=== PATIENT | female | born 1965 | race Caucasian/White ===

== ENCOUNTER 2024-04-22 16:25 | Emergency (ER) | payer OTHER, SELFPAY ==
[2024-04-22 16:35] VITALS: BP 128/75; PULSE 61; TEMP 36.9; O2SAT 98; BMI 24.6
--- NOTE | 2024-04-22 16:43 | CT_ITS ---
The [address] [address] Patient Name: LUCILA NÚÑEZ MRN: [id number] date: 1965 Sex: F Assigned Patient Location: ER Current Patient Location: ER Accession/Order Number: [id number] Exam Date: 04/22/2024 17:13 Report Date: 04/22/2024 17:57 At the request of: SUSAN MORALES Procedure: CT abdomen pelvis wo con CT ABDOMEN/PELVIS WITHOUT IV CONTRAST. INDICATION: Flank pain COMPARISON: There are no other studies available for comparison. TECHNIQUE: Contiguous axial images were obtained from the lung bases to the pelvic floor without intravenous or oral contrast. Coronal and sagittal reformations are provided. FINDINGS: LOWER LUNGS: Clear. LIVER/BILIARY TREE: There is a 1 cm low-density lesion in the right hepatic lobe likely a cyst.. No intrahepatic ductal dilatation. GALLBLADDER: No significant gallbladder wall thickening. Cholelithiasis. CBD: Normal CBD. SPLEEN: Normal in size. PANCREAS: No appreciable peripancreatic fluid. No pancreatic ductal dilatation. No discrete lesion. ADRENALS: Normal. KIDNEYS: No hydronephrosis. No radiopaque calculus. STOMACH AND BOWEL: Stomach is unremarkable. No dilated bowel loops. No bowel wall thickening. Postoperative changes of the right colon. PERITONEAL CAVITY: No fluid. No fat stranding. ABDOMINAL WALL: No subcutaneous stranding. No subcutaneous fluid collection. LYMPH NODES: No mesenteric or retroperitoneal lymphadenopathy by CT criteria. ABDOMINAL AORTA: No aneurysm. PELVIS: No acute abnormality. There is a right adnexal 5.8 x 5.2 cm low-density cystic lesion. MUSCULOSKELETAL: No acute osseous abnormality. CT/CT abdomen pelvis wo con IMPRESSION: 1. No acute abnormality in the abdomen or pelvis. 2. Cholelithiasis without evidence of acute cholecystitis. 3. Right adnexal 5.8 cm cystic lesion. Recommend pelvic ultrasound correlation. Electronically authenticated by: YOHAN RODRIGUEZ Date: 04/22/2024 17:57
[2024-04-22 16:58] LABS: Bilirubin Urine NEGATIVE (NEGATIVE); Blood Urine NEGATIVE (NEGATIVE); Clarity Urine CLEAR (CLEAR); Color Urine LT. YELLOW (YELLOW); Glucose Urine UA NEGATIVE (NEGATIVE); Ketones Urine NEGATIVE (NEGATIVE); Leukocyte Esterase Urine SMALL (NEGATIVE); Nitrite Urine NEGATIVE (NEGATIVE); Protein Urine NEGATIVE (NEG/TRACE); Specific Gravity Urine <=1.005 (1.005-1.025); Urobilinogen Urine 0.2 EU/dL (0.2-1.0)
[2024-04-22 17:00] LABS: Urine Microscopic Indicated YES
[2024-04-22 17:10] LABS: Bacteria Urine NONE SEEN #/HPF (NONE SEEN); Cast Seen? NONE SEEN #/LPF (NONE SEEN); Crystals Seen? None Seen #/HPF (None Seen); Mucus Urine NONE SEEN (NONE SEEN); RBC Urine NONE SEEN #/HPF (0-2); Squamous Epithelial Cell Urine RARE #/LPF (NONE/RARE); Transitional Epi Cells Urine RARE #/LPF (NONE SEEN); WBC Urine 0-2 #/HPF (NONE SEEN)
[2024-04-22 17:41] LABS: Basophils Absolute Auto 0.1 10^3/uL (0.0-0.1); Basophils Percent Auto 0.8 % (0.2-2.0); Eosinophils Absolute Auto 0.1 10^3/uL (0.0-0.7); Eosinophils Percent Auto 1.7 % (0.9-7.0); Hematocrit 37.1 % (36.0-48.0); Hemoglobin 12.1 g/dL (12.0-16.0); Immature Granulocytes Abs Auto 0.01 10^3/uL (0.00-0.03); Immature Granulocytes Pct Auto 0.2 % (0.0-0.5); Lymphocytes Absolute Auto 1.8 10^3/uL (1.2-3.8); Lymphocytes Percent Auto 29.9 % (20.5-60.0); Mean Corpuscular HGB Conc 32.6 g/dL (29.9-35.2); Mean Corpuscular Hemoglobin 27.6 pg (26.7-34.0); Mean Corpuscular Volume 84.7 fL (81.0-99.0); Mean Platelet Volume 9.2 fL (9.5-13.5); Monocytes Absolute Auto 0.5 10^3/uL (0.3-0.8); Monocytes Percent Auto 8.3 % (1.7-12.0); Neutrophils Absolute Auto 3.5 10^3/uL (1.4-6.5); Neutrophils Percent Auto 59.1 % (43.0-75.0); Platelet Count 331 10^3/uL (150-450); Red Blood Count 4.38 10^6/uL (4.20-5.40); Red Cell Distribution Width 12.9 % (11.0-15.0); White Blood Count 5.9 10^3/uL (4.0-11.0)
--- NOTE | 2024-04-22 17:44 | ED.BACK1 ---
HPI HPI - Back Pain/Injury General Chief Complaint: Back Pain/Injury Stated Complaint: BACK PAIN Time Seen by Provider: 04/22/24 16:42 Source: patient Mode of arrival: walk-in History of Present Illness HPI Narrative: Patient coming to the ER with a right-sided back pain radiating to her groin area that started almost 2 days ago, no history of kidney stone, no nausea no vomiting no changes in bowel movement, pain is related to movement and it not responding to ibuprofen Related Data Previous Rx's ?Medication ?Instructions ?Recorded cyclobenzaprine 5 mg tablet 5 mg PO BID PRN muscle spasm #10 04/22/24 tabs diclofenac sodium 50 mg 50 mg PO Q12H PRN pain #10 tabs 04/22/24 tablet,delayed release Allergies Allergy/AdvReac Type Severity Reaction Status Date / Time No Known Drug Allergies Allergy Verified 04/22/24 16:39 Opioid HPI Opioid Management Most Recent Opioid Data: Last Pain Scale 6 04/22/24 18:02 Last MAR Pain Assessment 04/22/24 18:02 Review of Systems ROS Status of ROS 10 or more systems reviewed and unremarkable except as noted in history and below Exam Narrative Exam Narrative: Nurses notes and vital signs reviewed and patient is not hypoxic. General: Well-appearing and in no apparent distress. Skin: Warm, dry, no pallor noted. No rash. Head: Normocephalic, atraumatic. Neck: Supple, non-tender. Eye: Pupils are equal, round and EOMI. No scleral icterus. Ears, Nose, Mouth, and Throat: TM are clear, no nasal mucosal hypertrophy. Oral mucosa is moist, no posterior oropharynx erythema, uvula is mid-line Cardiovascular: Regular Rate and Rhythm without murmur, gallop or rub. Respiratory: No accessory muscle use or respiratory distress. Lungs are clear to auscultation, no wheezing, rales or rhonchi Chest Wall: no tenderness Back: No midline thoracic or lumbar vertebral tenderness. Right CVA tenderness noted no intervertebral line tenderness and there is no right lower quadrant tenderness Musculoskeletal: normal ROM, no calf or popliteal tenderness, no lower extremity edema/swelling GI: Abdomen is soft, non-distended. Normal bowel sounds. No masses appreciated. No tenderness to palpation. No rebound, guarding, or rigidity noted. Neurological: A&O x4. No cranial nerve dysfunction observed. No truncal ataxia. Moves all extremities. Sensation intact. Psychiatric: Cooperative and interactive. Normal mood and affect. Constitutional Vital Signs, click to edit/add: Last Vital Signs Temp 98.4 F 04/22/24 16:35 Pulse 61 04/22/24 16:35 Resp 16 04/22/24 16:35 BP 128/75 04/22/24 16:35 Pulse Ox 98 04/22/24 16:35 O2 Del Method Room Air 04/22/24 16:35 Course Vital Signs Vital signs: Vital Signs Temperature 98.4 F 04/22/24 16:35 Pulse Rate 61 04/22/24 16:35 Respiratory Rate 16 04/22/24 16:35 Blood Pressure 128/75 04/22/24 16:35 Pulse Oximetry 98 04/22/24 16:35 Oxygen Delivery Method Room Air 04/22/24 16:35 Temperature 98.4 F 04/22/24 16:35 Pulse Rate 61 04/22/24 16:35 Respiratory Rate 16 04/22/24 16:35 Blood Pressure 128/75 04/22/24 16:35 Pulse Oximetry 98 04/22/24 16:35 Oxygen Delivery Method Room Air 04/22/24 16:35 MDM - Back Pain/Injury MDM Narrative Medical decision making narrative: The patient' CBC chemistry showed no acute pathology Urinalysis showed no acute pathology as well The patient CT abdomen pelvis showed no acute pathology except for a cyst of the right ovary that is 5.8 cm. The patient was not having pain in the right lower quadrant more pain was in the upper back I offered the patient an ultrasound to be done in the ER but I told her that it is going to have to wait for the laser technician to come and do the ultrasound but she mentioned that she will follow-up with her [facility] doctor as outpatient as she have an appointment with them at the end of the month The patient understand that the pain is not drained right now I did explain to her that ovarian torsion possibility that could happen in the future although she does not have any pain there The patient pain is localized to the right upper back and not in the right lower quadrant The patient is to follow up with primary care physician in next 2-3 days or to return to the emergency department should any of the signs or symptoms worsen or new symptoms develop. The patient agrees with the following Diagnosis and Treatment plan and the patient will be discharged home. Lab Data Labs: Lab Results 04/22/24 04/22/24 Range/Units 16:40 17:34 WBC 5.9 (4.0-11.0) 10^3/uL RBC 4.38 (4.20-5.40) 10^6/uL Hgb 12.1 (12.0-16.0) g/dL Hct 37.1 (36.0-48.0) % MCV 84.7 (81.0-99.0) fL MCH 27.6 (26.7-34.0) pg MCHC 32.6 (29.9-35.2) g/dL RDW 12.9 (11.0-15.0) % Plt Count 331 (150-450) 10^3/uL MPV 9.2 L (9.5-13.5) fL Neut % (Auto) 59.1 (43.0-75.0) % Lymph % (Auto) 29.9 (20.5-60.0) % Walker % (Auto) 8.3 (1.7-12.0) % Eos % (Auto) 1.7 (0.9-7.0) % Baso % (Auto) 0.8 (0.2-2.0) % Neut # (Auto) 3.5 (1.4-6.5) 10^3/uL Lymph # (Auto) 1.8 (1.2-3.8) 10^3/uL Walker # (Auto) 0.5 (0.3-0.8) 10^3/uL Eos # (Auto) 0.1 (0.0-0.7) 10^3/uL Baso # (Auto) 0.1 (0.0-0.1) 10^3/uL Abs Immat Gran (auto) 0.01 (0.00-0.03) 10^3/uL Imm/Tot Granulo (auto) 0.2 (0.0-0.5) % Sodium 138 (136-145) mmol/L Potassium 3.9 (3.5-5.1) mmol/L Chloride 102 (98-107) mmol/L Carbon Dioxide 29.2 (21.0-32.0) mmol/L Anion Gap 10.7 BUN 8.0 (7.0-18.0) mg/dL Creatinine 0.73 (0.55-1.02) mg/dL Est GFR ( Amer) >60 (>=60) Est GFR (Non-Af Amer) >60 (>=60) BUN/Creatinine Ratio 11.0 Glucose 92 (74-106) mg/dL Lactate 0.8 (0.4-2.0) mmol/L Calcium 9.2 (8.5-10.1) mg/dL Total Bilirubin 0.3 (0.2-1.0) mg/dL AST 27 (15-37) U/L ALT 27 (14-59) U/L Alkaline Phosphatase 67 (46-116) U/L Total Protein 7.5 (6.4-8.2) g/dL Albumin 4.0 (3.4-5.0) g/dL Globulin 3.5 g/dL Albumin/Globulin Ratio 1.1 Urine Color Lt. yellow (YELLOW) Urine Clarity Clear (CLEAR) Urine pH 6.0 (5.0-9.0) Ur Specific [place] <=1.005 A (1.005-1.025) Urine Protein Negative (NEG/TRACE) mg/dL Urine Glucose (UA) Negative (NEGATIVE) mg/dL Urine Ketones Negative (NEGATIVE) mg/dL Urine Occult Blood Negative (NEGATIVE) Urine Nitrite Negative (NEGATIVE) Urine Bilirubin Negative (NEGATIVE) Urine Urobilinogen 0.2 (0.2-1.0) EU/dL Ur Leukocyte Esterase Small A (NEGATIVE) Urine RBC None seen (0-2) #/HPF Urine WBC 0-2 A (NONE SEEN) #/HPF Ur Squamous Epith Cells Rare (NONE/RARE) #/LPF Ur Transition Epith Cell Rare A (NONE SEEN) #/LPF Urine Crystals None seen (None Seen) #/HPF Urine Bacteria None seen (NONE SEEN) #/HPF Urine Casts None seen (NONE SEEN) #/LPF Urine Mucus None seen (NONE SEEN) Discharge Plan Discharge Stand Alone Forms: Portal Instructions Chief Complaint: Back Pain/Injury Clinical Impression: Strain of lumbar region, Ovarian cyst Patient Disposition: Home, Self-Care Time of Disposition Decision: 18:50 Condition: Good Prescriptions / Home Meds: New cyclobenzaprine 5 mg tablet 5 mg PO BID PRN (Reason: muscle spasm) Qty: 10 0RF diclofenac sodium 50 mg tablet,delayed release (DR/EC) 50 mg PO Q12H PRN (Reason: pain) Qty: 10 0RF Print Language: Divehi Instructions: Ovarian Cyst (ED), Back Pain (ED) Referrals: Harvey Zimmer DO [Physician] - As soon as possible PAULETTE CHAIDEZ [Primary Care Provider] - 1 week
[2024-04-22] MEDS: ORPHENADRINE 60 MG/ 2 ML VIAL 30 MG IM (18:01)
[2024-04-22] MEDS: KETOROLAC TROMETHAMINE 30 MG/ML VIAL IM (18:02)
[2024-04-22 18:17] LABS: Alanine Aminotransferase 27 U/L (14-59); Albumin Globulin Ratio 1.1; Alkaline Phosphatase 67 U/L (46-116); Anion Gap 10.7; Aspartate Amino Transferase 27 U/L (15-37); Bilirubin Total 0.3 mg/dL (0.2-1.0); Calcium 9.2 mg/dL (8.5-10.1); Carbon Dioxide 29.2 mmol/L (21.0-32.0); Chloride 102 mmol/L (98-107); Estimated GFR (African America >60 (>=60); Estimated GFR (Non-African Ame >60 (>=60); Globulin 3.5 g/dL; Glucose 92 mg/dL (74-106); Potassium 3.9 mmol/L (3.5-5.1); Sodium 138 mmol/L (136-145); Total Protein 7.5 g/dL (6.4-8.2)
[2024-04-22 18:20] LABS: Lactate/Lactic Acid 0.8 mmol/L (0.4-2.0)
[2024-04-22 19:05] VITALS: BP 122/70; PULSE 65; TEMP 36.7; O2SAT 100
== END 2024-04-22 19:06 | disposition home or self-care (01) ==
PROVIDERS: Physician Assistant; Emergency Provider Emergency Medicine; PCP Nurse Practitioner
DX: S39.012A Strain of muscle, fascia and tendon of lower back, initial encounter (principal); N83.201 Unspecified ovarian cyst, right side
CPT/HCPCS: 36415; 74176; 80053; 81001; 83605; 85025; 96372; 99285

== ENCOUNTER 2024-04-30 08:21 | Outpatient (OUT) | payer OTHER, SELFPAY ==
--- NOTE | 2024-04-30 08:24 | US_ITS ---
[address] [address] Patient Name: LUCILA NÚÑEZ MRN: [id number] date: 1965 Sex: F Assigned Patient Location: [facility] Current Patient Location: [facility] Accession/Order Number: [id number] Exam Date: 04/30/2024 08:25 Report Date: 04/30/2024 09:37 At the request of: MARYAN RUBIO Procedure: US pelvis w/ transvaginal EXAMINATION: US pelvis w/ transvaginal HISTORY: RIGHT OVARIAN CYST follow-up COMPARISON: CT abdomen pelvis 04/22/2024 TECHNIQUE: Transabdominal and/or transvaginal sonographic examination was performed as indicated by examination type. FINDINGS: UTERUS: Hysterectomy. RIGHT OVARY: Contains an anechoic simple appearing 5.3 cm cyst. Duplex Doppler demonstrates normal waveform and flow; resistive index 0.7. Ovary size: 6.7 x 5.4 x 5.5 cm LEFT OVARY: Not seen. CUL-DE-SAC: Unremarkable. No significant free fluid. BLADDER: Unremarkable. OTHER: None. US/US pelvis w/ transvaginal IMPRESSION: 1. Within the right ovary is a benign-appearing 5.3 cm cyst which corresponds to prior CT findings. Consider follow-up ultrasound evaluation in 6 weeks to document regression. Electronically authenticated by: JOSEPH BAILEY Date: 04/30/2024 09:37
--- OUTSIDE RECORDS SUMMARY | 2024-04-30 08:44 | XMS_ITS ---
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 [address] [address] Josie Allred MG MAMM SCREEN 3D АЛЕКСАНДР CADon 01-28-2022 MG MAMM SCREEN 3D АЛЕКСАНДР CAD Patient: ITALIA NÚÑEZ Exam Date: 01/28/2022 : 1965 Gender:F Ordering : DR CHELSEY DILL Admission #: [id number] Family : Order #: [id number] CLICK HERE TO VIEW EXAM RADIOLOGY REPORT PROCEDURE: MAMMOGRAM SCREENING 3D BILATERAL CAD COMPARISON: MG MAMM SCREEN АЛЕКСНАДР W CAD, 12/02/2020. MG MAMM SCREEN АЛЕКСАНДР W CAD, 11/25/2019. INDICATIONS: Screening mammography Calculator Name NCI Breast Cancer Risk Assessment Tool 5 Year Breast Cancer Risk 1.30% Lifetime Breast Cancer Risk 8.50% Personal Breast Cancer No Personal Ovarian Cancer No Treatments Bowel resection Family Cancers Father with mult.myeloma cancer at age 68; Mother with colon cancer at age 79. LOCATION: [facility] BREAST COMPOSITION: Heterogeneously dense,which may obscure small masses. FINDINGS: DIAGNOSTIC CATEGORY 1--NEGATIVE. NO CHANGE FROM COMPARISON ASSESSMENT. Scattered benign-appearing calcifications are present. Scattered benign-appearing lymph nodes are present. RIGHT BREAST: No significant suspicious finding. Stable micro clip marker upper half LEFT BREAST: No significant suspicious finding. Round mole marker upper outer quadrant RECOMMENDATIONS: ROUTINE MAMMOGRAM AND CLINICAL EVALUATION IN 12 MONTHS. PLEASE NOTE: A NORMAL MAMMOGRAM DOES NOT EXCLUDE THE POSSIBILITY OF BREAST CANCER. A CLINICALLY SUSPICIOUS PALPABLE LUMP SHOULD BE BIOPSIED. Dictated by: Golden Randolph MD on 01/28/2022 at 08:06 Approved by: Golden Randolph MD on 01/28/2022 at 08:07 Normal [facility] PROF 14(COMP METB)on 022 Albumin [Mass/Vol] 3.9 g/dL Normal 3.5-5.0 [facility] Comment on above: Performed By: #### L IPID, CMP #### [facility] [address] [place] [address] Dr. Josie Allred Albumin/Globulin [Mass ratio] 1.1 {ratio} Normal [facility] Comment on above: Performed By: #### L IPID, CMP #### [facility] [address] [place] [address] Dr. Josie Allred ALP [Catalytic activity/Vol] 56 U/L Normal 38-126 [facility] Comment on above: Performed By: #### L IPID, CMP #### [facility] [address] [place] [address] Dr. Josie Allred ALT [Catalytic activity/Vol] 25 U/L Normal 9-52 [facility] Comment on above: Performed By: #### L IPID, CMP #### [facility] [address] [place] [address] Dr. Josie Allred Anion gap [Moles/Vol] 12.2 mmol/L Normal [facility] Comment on above: Performed By: #### L IPID, CMP #### [facility] [address] [place] [address] Dr. Josie Allred AST [Catalytic activity/Vol] 21 U/L Normal 14-36 [facility] Comment on above: Performed By: #### L IPID, CMP #### [facility] [address] [place] [address] Dr. Josie Allred Bilirubin [Mass/Vol] 0.3 mg/dL Normal 0.2-1.3 [facility] Comment on above: Performed By: #### L IPID, CMP #### [facility] [address] [place] [address] Dr. Josie Allred Calcium [Mass/Vol] 8.8 mg/dL Normal 8.4-10.2 [facility] Comment on above: Performed By: #### L IPID, CMP #### [facility] [address] [place] [address] Dr. Josie Allred Chloride [Moles/Vol] 104 mmol/L Normal 98-107 [facility] Comment on above: Performed By: #### L IPID, CMP #### [facility] [address] [place] [address] Dr. Josie Allred CO2 [Moles/Vol] 27.1 mmol/L Normal 22.0-30.0 [facility] Comment on above: Performed By: #### L IPID, CMP #### [facility] [address] [place] [address] Dr. Josie Allred Creatinine [Mass/Vol] 0.81 mg/dL Normal 0.52-1.04 [facility] Comment on above: Performed By: #### L IPID, CMP #### [facility] [address] [place] [address] Dr. Josie Allred EGFR-AF HAITIAN >60 Normal >=60 [facility] Comment on above: Performed By: #### L IPID, CMP #### [facility] [address] [address] [address] Josie Allred EGFR-NON AF HAITIAN >60 Normal >=60 [facility] Comment on above: Performed By: #### L IPID, CMP #### [facility] [address] [place] [address] Dr. Josie Allred Globulin (S) [Mass/Vol] 3.5 g/dL Normal [facility] Comment on above: Performed By: #### L IPID, CMP #### [facility] [address] [place] [address] Dr. Josie Allred Glucose [Mass/Vol] 100 mg/dL Normal 74-106 [facility] Comment on above: Performed By: #### L IPID, CMP #### [facility] [address] [place] [address] Dr. Josie Allred Potassium [Moles/Vol] 4.3 mmol/L Normal 3.4-5.0 [facility] Comment on above: Performed By: #### L IPID, CMP #### [facility] [address] [place] [address] Dr. Josie Allred Protein [Mass/Vol] 7.4 g/dL Normal 6.1-8.2 [facility] Comment on above: Performed By: #### L IPID, CMP #### [facility] [address] [place] [address] Dr. Josie Allred Sodium [Moles/Vol] 139 mmol/L Normal 137-145 [facility] Comment on above: Performed By: #### L IPID, CMP #### [facility] [address] [place] [address] Dr. Josie Allred Urea nitrogen [Mass/Vol] 17.0 mg/dL Normal 7.0-17.0 [facility] Comment on above: Performed By: #### L IPID, CMP #### [facility] [address] [address] [address] Josie Allred Urea nitrogen/Creatinin e [Mass ratio] 21.0 mg/mg Normal [facility] Comment on above: Performed By: #### L IPID, CMP #### [facility] [address] [address] [address] Josie Allred POINT OF CARE GLUCOSEon 11-27 Glucose [Mass/Vol] 156 mg/dL Critically high 74-106 [facility] Comment on above: Performed By: #### P OCGLUC #### [facility] [address] [address] [address] Josie Allred Social History Date Type Detail Facility Start: 1965 Sex Assigned At Female F [facility] Tobacco smoking status NHIS Unknown if ever smoked [facility] Work Phone: Sex Assigned At Sex Assigned At Bir th [facility] Other Vital Signs Date Time Vital Sign Value Performing Clinician Facility 09-10-2022 10:55-0400 Body height 167.64 cm Indigo Mckeon Other [facility] Other 09-10-2022 10:55-0400 Body mass index (BMI) [Ratio] 24.37 kg/m2 Indigo Mcke[facility] Other [facility] Other 09-10-2022 10:55-0400 Body temperature 97.5 [degF] Indigo Mcke[facility] Other [facility] Other 09-10-2022 10:55-0400 Body weight 68.49 kg Indigo Mckeon Other [facility] Other 09-10-2022 10:55-0400 Diastolic blood pressure 61 mm[Hg] Indigo Mcke[facility] Other [facility] Other 09-10-2022 10:55-0400 Respiratory rate 18 /min Indigo Mckeon Other [facility] Other 09-10-2022 10:55-0400 SaO2% (BldA) [Mass fraction] 99 % Indigo Mckeon Other [facility] Other 09-10-2022 10:55-0400 Systolic blood pressure 117 mm[Hg] Indigo Mckeon Other [facility] Other Evaluation note 09-10-2022 Note Date & Type Note Facility 09-10-2022 Evaluation note Encounter Date Diagnosis Assessment Notes Aug, Dysuria (ICD-10 - R30.0) Discussed diagnosis and dipstick findings with patient. Advised patient culture was sent today and we will call with her results in 2-5 days. Will hold off on treatment at this time. At time of culture results, treatment plan may change. Patient instructed to push fluids. Patient symptoms should improve in the next 48 hours, if symptoms persist follow up with PCP or UC. Immediate eval by ER if back or flank pain, fever, chills, N/V, or any other concerning symptoms arise. Patient verbalizes understanding and is agreeable to treatment plan [facility] Other Evaluation note Note Date & Type Note Facility Evaluation note No assessment information availa [facility] Work Phone: Summary Purpose Family History No Family History Records FoundNo Family History Records FoundNo Family History Records FoundNo Family History Records FoundNo Family History Records FoundNo Family History Records Found Advance Directives No Advanced Directives Records Found Advance Directive Response Recorded Date/ Time Advance Directives No April 12 7:30pm Chief Complaint and Reason for Visit Chief Complaint Dysuria Additional Source Comments INFORMATION SOURCE (unrecogn ized section and content) DATE CREATED AUTHOR 02/03/2022 [facility] DATE CREATED AUTHOR AUTHOR'S KAREN JARA 09/18/2022 [facility] DATE CREATED AUTHOR AUTHOR'S ORGANIZ ATION 07/04/2023 [facility] DATE CREATED AUTHOR AUTHOR'S ORGANIZ ATION 04/10/2024 [facility] DATE CREATED AUTHOR AUTHOR'S ORGANIZ ATION 04/11/2024 [facility] DATE CREATED AUTHOR AUTHOR'S ORGANIZ ATION 04/29/2024 [facility] EPIC Care Teams (unrecognized sec tion and content) Team Status: Inactive Member Role Status Dates Josef Portillo , DO Primary Care Provider Active LYDIA Fish Attending Provider Active Team Status: Active Member Role Status Dates Josef Portillo , DO Primary Care Provider Active Team Status: Inactive Member Role Status Dates Josef Portillo , DO Primary Care Provider Active Indigo Mckeon APRN Attending Provider Active Goals (unrecognized section and content) Goals may be documented in a n alternate sectionNo InformationGoals may be documented in an alternate section REASON FOR VISIT (unrecogniz ed section and content) DYSURIA FOR RECORDS PERTAINING TO PATIENTS WHO ARE OR HAVE BEEN ENROLLED IN A CHEMICAL DEPENDENCY/SUBSTANCEABUSE PROGRAM, SOME INFORMATION MAY BE OMITTED. This clinical summary was aggregated from multiple sources. Caution should be exercised in using it in the provision of clinical care. This summary normalizes information from multiple sources, and as a consequence, information in this document may materially change the coding, format and clinical context of patient data. In addition, data may be omitted in some cases. CLINICAL DECISIONS SHOULD BE BASED ON THE PRIMARY CLINICAL RECORDS. [facility]. provides no warranty or guarantee of the accuracy or completeness of information in this document.
== END 2024-04-30 08:22 | disposition home or self-care (01) ==
LOC: NOMS 08:22
PROVIDERS: PCP Nurse Practitioner; Visit Provider Obstetrics & Gynecology
DX: N83.201 Unspecified ovarian cyst, right side (principal)
CPT/HCPCS: 76830; 76856

== ENCOUNTER 2024-07-01 21:20 | Outpatient (REF) | payer OTHER, SELFPAY ==
--- OUTSIDE RECORDS SUMMARY | 2024-07-01 21:28 | XMS_ITS | CCD ---
Author Organization [facility] Care Team Providers Care Protective Signal Installer Helper Name Role Phone PAULETTE MARCELINO Admitting Unavailable PAULETTE MARCELINO Attending Unavailable PAULETTE MARCELINO Consulting Unavailable FUENTES, DR BARBOSA Admitting Unavailable FUENTES, DR BARBOSA Attending Unavailable [place], DR GOLDEN Connell Consulting Unavailable FUENTES, DR BARBOSA Consulting Unavailable DO Josef Portillo Primary Care Provider LYDIA Marcelino Attending Provider Indigo Mckeon Unavailable DO Josef Portillo Primary Care Provider YUE Mckeon Attending Provider [phone] Josef Portillo Primary Care Unavailable Indigo Mckeon Attending Unavailable Indigo Mckeon Admitting Unavailable Paulette Marcelino Admitting Unavailable Josef Portillo Primary Care Unavailable Paulette Marcelino Attending Unavailable PAULETTE MARCELINO Attending Unavailable PAULETTE MARCELINO Referring Unavailable PAULETTE MARCELINO Primary Care Unavailable PAULETTE MARCELINO Referring Unavailable ALEXIS MARCELINOERIE Joanie Primary Care Unavailable MARYAN RUBIO Attending Unavailable MARYAN RUBIO Referring Unavailable DIETER ROE Attending Unavailable MARYAN RUBIO Attending Unavailable Problems Active Problems Problem Classification Problem Date [...] [Other iron deficiency anemias] Onset: 11-01-2017 Episodic Results Test Name Value Interpretation Reference Range Facility BI MAMMOGRAM SCREENING TOMOS YNTHESIS BILATERALon 05-29-2024 BI MAMMOGRAM SCREENING TOMOSYNTHESIS BILATERAL This is a summary report. The complete report is available in the patient's medical record. If you cannot access the medical record, please contact the sending organization for a detailed fax or copy. EXAMINATION: BI MAMMOGRAM SCREENING TOMOSYNTHESIS BILATERAL CLINICAL HISTORY:screening mammogram COMPARISON: February 17, 2023. RESULT: Density: Heterogeneously dense [3] There is no suspicious mass, asymmetry, architectural distortion, or calcification. Right upper outer quadrant biopsy clip. Overall appearance stable. IMPRESSION: BIRADS 2 - Benign Follow-up: Routine Screening Mamm Board Certified Radiologists. Accredited by the ACR and FDA. MAMMOGRAPHY IS VERY IMPORTANT TO YOUR HEALTH. THE [place] [employer] GUIDELINES RECOMMEND THAT WOMEN 40 YEARS OF AGE AND OLDER SHOULD HAVE A MAMMOGRAM EVERY YEAR. A REMINDER LETTER WILL BE SENT AT THE APPROPRIATE TIME. THIS FACILITY UTILIZES A REMINDER SYSTEM TO ENSURE ALL PATIENTS RECEIVE REMINDER NOTIFICATIONS AT THE APPROPRIATE TIME BASED ON THE RECOMMENDATIONS OF THIS EXAM. THIS INCLUDES REMINDERS FOR ROUTINE SCREENING MAMMOGRAMS, DIAGNOSTIC MAMMOGRAMS IN WHICH THE PATIENT IS ASKED TO RETURN FOR ADDITIONAL VIEWS, OR OTHER BREAST IMAGING INTERVENTIONS WHEN APPROPRIATE. THE PATIENT WILL BE PLACED IN THE APPROPRIATE REMINDER SYSTEM INCLUDING A REMINDER AT THE APPROPRIATE TIME FOR ANY PENDING ADDITIONAL VIEWS. TRANSCRIBED BY: ELECTRONICALLY SIGNED BY: Steve Fong MD Normal Not Available CBC AND AUTO DIFFon 04-09-20 24 ABSOLUTE BASOPHIL 0.0 X10E9/L Normal 0.0-0.2 [facility] Comment on above: Performed By: #### C BCA, CMP, FEPR, 13783-8, 3016-3, 2276-4, 2132-07 #### [facility] ([id number]) [address], [address] [place] [address] ABSOLUTE NEUTROPHIL 1.8 X10E9/L Normal 1.5-6.6 [facility] Comment on above: Performed By: #### C BCA, CMP, FEPR, 44550-3, 3016-3, 2275-4, 2132-07 #### [facility] ([id number]) [address] [place] [address] Basophils/100 WBC (Bld) 1.4 % Normal [facility] Comment on above: Performed By: #### C BCA, CMP, FEPR, 91065-9, 3016-3, 2276-4, 2132-07 #### [facility] ([id number]) [address] [facility] [address] [place] [address] Eosinophils (Bld) [#/Vol] 0.1 10*3/uL Normal 0.0-0.4 [facility] Comment on above: Performed By: #### C BCA, CMP, FEPR, 54314-3, 3016-3, 2276-4, 2132-07 #### [facility] ([id number]) [address], [address] [place] [address] Eosinophils/100 WBC (Bld) 4.2 % Normal [facility] Comment on above: Performed By: #### C BCA, CMP, FEPR, 71018-2, 3016-3, 2276-4, 2132-07 #### [facility] ([id number]) [address] [address] Erythrocyte distribution width (RBC) [Ratio] 13.3 % Normal 11.5-15.0 [facility] Comment on above: Performed By: #### C BCA, CMP, FEPR, 07104-4, 3016-3, 2276-4, 2132-07 #### [facility] ([id number]) [address] [address] Hematocrit (Bld) [Volume fraction] 35.8 % Normal 35-47 [facility] Comment on above: Performed By: #### C BCA, CMP, FEPR, 85372-6, 3016-3, 2275-4, 2132-07 #### [facility] ([id number]) [address] [address] Hemoglobin (Bld) [Mass/Vol] 12.0 g/dL Normal 11.7-15.5 [facility] Comment on above: Performed By: #### C BCA, CMP, FEPR, 10435-4, 3016-3, 6-4, 2132-07 #### [facility] ([id number]) [address] [address] Lymphocytes (Bld) [#/Vol] 1.3 10*3/uL Normal 1.0-3.5 [facility] Comment on above: Performed By: #### C BCA, CMP, FEPR, 68275-4, 3016-3, 2276-4, 2132-07 #### [facility] ([id number]) [address] [address] Lymphocytes/100 WBC (Bld) 35.0 % Normal [facility] Comment on above: Performed By: #### C BCA, CMP, FEPR, 65848-8, 3016-3, 2276-4, 2132-07 #### [facility] ([id number]) [address] [place] [address] MCH (RBC) [Entitic mass] 27.9 pg Normal 27-34 [facility] Comment on above: Performed By: #### C BCA, CMP, FEPR, 22424-0, 3016-3, 2276-4, 2132-07 #### [facility] ([id number]) [address] [facility] [address] [place] [address] MCHC (RBC) [Mass/Vol] 33.6 g/dL Normal 32-36 [facility] Comment on above: Performed By: #### C BCA, CMP, FEPR, 04078-1, 3016-3, 2275-4, 2132-07 #### [facility] ([id number]) [address], [facility] [address] [place] [address] MCV (RBC) [Entitic vol] 83 fL Normal 80-100 [facility] Comment on above: Performed By: #### C BCA, CMP, FEPR, 32861-1, 3016-3, 2275-4, 2132-07 #### [facility] ([id number]) [address] [facility] [address] [place] [address] Monocytes (Bld) [#/Vol] 0.3 10*3/uL Normal 0-0.9 [facility] Comment on above: Performed By: #### C BCA, CMP, FEPR, 35842-0, 3016-3, 2275-4, 2132-07 #### [facility] ([id number]) [address] [address] [place] [address] Monocytes/100 WBC (Bld) 9.7 % Normal [facility] Comment on above: Performed By: #### C BCA, CMP, FEPR, 36298-8, 3016-3, 2276-4, 2132-07 #### [facility] ([id number]) [address], [facility] [address] [place] [address] Neutrophils/100 WBC (Bld) 49.7 % Normal [facility] Comment on above: Performed By: #### C BCA, CMP, FEPR, 36458-7, 3016-3, 2276-4, 2132-07 #### [facility] ([id number]) [address] [place] [address] Platelet mean volume (Bld) [Entitic vol] 7.7 fL Normal 7-12 [facility] Comment on above: Performed By: #### C BCA, CMP, FEPR, 38457-1, 3016-3, 2276-4, 2132-07 #### [facility] ([id number]) [address], [address] [place] [address] Platelets (Bld) [#/Vol] 324 10*3/uL Normal 150-450 [facility] Comment on above: Performed By: #### C BCA, CMP, FEPR, 52345-4, 3016-3, 2276-4, 2132-07 #### [facility] ([id number]) [address], [address] [place] [address] RBC COUNT 4.31 X10E12/L Normal 3.80-5.20 [facility] Comment on above: Performed By: #### C BCA, CMP, FEPR, 35097-4, 3016-3, 2276-4, 2132-07 #### [facility] ([id number]) [address], [address] [place] [address] WBC (Bld) [#/Vol] 3.6 10*3/uL Low 4.0-11.0 [facility] Comment on above: Performed By: #### C BCA, CMP, FEPR, 57686-5, 3016-3, 2276-4, 2132-07 #### [facility] ([id number]) [address], [address] [place] [address] COMPREHENSIVE METABOLIC PANE Drew 05-14-2024 Albumin [Mass/Vol] 4.1 g/dL Normal 3.2-5.3 [facility] Comment on above: Performed By: #### C BCA, CMP, FEPR, 11729-1, 3016-3, 2276-4, 2132-07 #### [facility] ([id number]) [address], [address] [place] [address] ALP [Catalytic activity/Vol] 53 U/L Normal 39-130 [facility] Comment on above: Performed By: #### C BCA, CMP, FEPR, 42874-3, 3016-3, 2276-4, 2132-07 #### [facility] ([id number]) [address], [address] [place] [address] ALT [Catalytic activity/Vol] 19 U/L Normal 0-31 [facility] Comment on above: Performed By: #### C BCA, CMP, FEPR, 06627-1, 3016-3, 6-4, 2132-07 #### [facility] ([id number]) [address], [address] [place] [address] Anion gap [Moles/Vol] 9 mmol/L Normal 5-15 [facility] Comment on above: Performed By: #### C BCA, CMP, FEPR, 02493-6, 3016-3, 2276-4, 2132-07 #### [facility] ([id number]) [address], [address] [place] [address] AST [Catalytic activity/Vol] 22 U/L Normal 0-41 [facility] Comment on above: Performed By: #### C BCA, CMP, FEPR, 51019-2, 3016-3, 2276-4, 2132-07 #### [facility] ([id number]) [address], [address] [place] [address] Bilirubin [Mass/Vol] 0.4 mg/dL Normal 0.3-1.2 [facility] Comment on above: Performed By: #### C BCA, CMP, FEPR, 69853-8, 3016-3, 2276-4, 2132-07 #### [facility] ([id number]) [address] [place] [address] Calcium [Mass/Vol] 9.2 mg/dL Normal 8.5-10.5 [facility] Comment on above: Performed By: #### C BCA, CMP, FEPR, 18498-1, 3016-3, 2276-4, 2132-07 #### [facility] ([id number]) [address] [place] [address] Chloride [Moles/Vol] 106 mmol/L Normal 98-109 [facility] Comment on above: Performed By: #### C BCA, CMP, FEPR, 78765-6, 3016-3, 6-4, 2132-07 #### [facility] ([id number]) [address] [place] [address] CO2 [Moles/Vol] 25 mmol/L Normal 22-32 [facility] Comment on above: Performed By: #### C BCA, CMP, FEPR, 46817-2, 3016-3, 2276-4, 2132-07 #### [facility] ([id number]) [address] [place] [address] Creatinine [Mass/Vol] 0.67 mg/dL Normal 0.40-1.00 [facility] Comment on above: Result Comment: METH OD TRACEABLE TO IDMS STANDARD Performed By: #### C BCA, CMP, FEPR, 03224-3, 3016-3, 2276-4, 2132-07 #### [facility] ([id number]) [address] [place] [address] eGFR (CKD-EPI) NON-RACE DEPENDENT >90 Normal >59 [facility] Comment on above: Result Comment: Reported eGFR is based on the CKD-EPI 2020 equation that does not use a race coefficient. Performed By: #### C BCA, CMP, FEPR, 66871-4, 3016-3, 2276-4, 2132-07 #### [facility] ([id number]) [address], [address] [place] [address] Glucose [Mass/Vol] 96 mg/dL Normal 65-99 [facility] Comment on above: Performed By: #### C BCA, CMP, FEPR, 95188-5, 3016-3, 2275-4, 2132-07 #### [facility] ([id number]) [address] [place] [address] Potassium [Moles/Vol] 4.4 mmol/L Normal 3.5-5.0 [facility] Comment on above: Performed By: #### C BCA, CMP, FEPR, 03403-4, 3016-3, 2275-4, 2132-07 #### [facility] ([id number]) [address] [place] [address] Protein [Mass/Vol] 6.8 g/dL Normal 6.0-8.0 [facility] Comment on above: Performed By: #### C BCA, CMP, FEPR, 78676-1, 3016-3, 6-4, 2132-07 #### [facility] ([id number]) [address], [address] [place] [address] Sodium [Moles/Vol] 140 mmol/L Normal 134-146 [facility] Comment on above: Performed By: #### C BCA, CMP, FEPR, 77363-2, 3016-3, 2276-4, 2132-07 #### [facility] ([id number]) [address], [address] [place] [address] Urea nitrogen [Mass/Vol] 15 mg/dL Normal 5-23 [facility] Comment on above: Performed By: #### C BCA, CMP, FEPR, 56080-9, 3016-3, 2276-4, 2131-9 #### [facility] ([id number]) [address], [address] [place] [address] FERRITINon 04-09-2024 Ferritin [Mass/Vol] 7 ng/mL Low 11-307 [facility] Comment on above: Performed By: #### C BCA, CMP, FEPR, 71065-2, 3016-3, 2276-4, 2132-07 #### [facility] ([id number]) [address], [address] [place] [address] IRON PROFILEon 04-09-2024 Iron [Mass/Vol] 77 ug/dL Normal 50-170 [facility] Comment on above: Performed By: #### C BCA, CMP, FEPR, 59130-7, 3016-3, 2276-4, 2132-07 #### [facility] ([id number]) [address], [address] [place] [address] IRON BINDING 402 ug/dL Normal 250-425 [facility] Comment on above: Performed By: #### C BCA, CMP, FEPR, 57520-3, 3016-3, 2276-4, 2132-07 #### [facility] ([id number]) [address], [address] [place] [address] IRON SATURATION 19 % SATURATION Normal 15-50 [facility] Comment on above: Performed By: #### C BCA, CMP, FEPR, 54480-1, 3016-3, 2276-4, 2131-9 #### [facility] ([id number]) [address] [place] [address] Lipid 1996 panelon Cholesterol [Mass/Vol] 192 mg/dL Normal 150-200 [facility] Comment on above: Performed By: #### C BCA, CMP, FEPR, 34900-1, 3016-3, 2275-4, 2132-07 #### [facility] ([id number]) [address], [address] [place] [address] Cholesterol in HDL [Mass/Vol] 96 mg/dL Normal >39 [facility] Comment on above: Result Comment: HDL <40 mg/dL - High Risk HDL > or = 40mg/dL- Desirable HDL >60 mg/dL - Negative Risk Performed By: #### C BCA, CMP, FEPR, 59112-8, 3015-3, 2276-02, 2132-07 #### [facility] ([id number]) [address] [place] [address] Cholesterol in LDL [Mass/Vol] 89 mg/dL Normal <130 [facility] Comment on above: Result Comment: LDL <100 mg/dL - Desirable LDL >160 mg/dL - High Risk Performed By: #### C BCA, CMP, FEPR, 52321-4, 3015-3, 2275-4, 2132-07 #### [facility] ([id number]) [address], [address] [place] [address] Cholesterol in VLDL [Mass/Vol] 7 mg/dL Normal 0-30 [facility] Comment on above: Performed By: #### C BCA, CMP, FEPR, 24341-0, 3015-3, 2275-4, 2132-07 #### [facility] ([id number]) [address] [place] [address] CHOLESTEROL:HDL 2.0 Normal 1.0-5.0 [facility] Comment on above: Performed By: #### C BCA, CMP, FEPR, 46251-5, 3016-3, 2276-4, 2131-9 #### [facility] ([id number]) [address] [place] [address] Triglyceride [Mass/Vol] 35 mg/dL Normal 27-150 [facility] Comment on above: Performed By: #### C BCA, CMP, FEPR, 78705-7, 3016-3, 2276-4, 2132-07 #### [facility] ([id number]) [address] [place] [address] TSH Qnon 04-09-2024 TSH 2.86 uIU/mL Normal 0.49-4.67 [facility] Comment on above: Performed By: #### C BCA, CMP, FEPR, 41172-1, 3016-3, 2276-4, 9 #### [facility] ([id number]) [address], [address] [place] [address] VITAMIN B12on 04-09-2024 Cobalamin (Vitamin B12) [Mass/Vol] 208 pg/mL Normal 180-914 [facility] Comment on above: Performed By: #### C BCA, CMP, FEPR, 75268-8, 3016-3, 2276-4, 9 #### [facility] ([id number]) [address] [place] [address] IRON AND TOTAL IRON BINDING CAPACITYon 07-04-2023 % SATURATION 22 % (calc) Normal 16-45 [facility] Comment on above: Performed By: #### 7 573 #### [facility] [address] [address] Stylist Apprentice: Emmett Fox MD IRON BINDING CAPACITY 334 mcg/dL (calc) Normal 250-450 [facility] Comment on above: Performed By: #### 7 573 #### [facility] [address], [address] [place] [address] Stylist Apprentice: Emmett Fox MD IRON, TOTAL 73 mcg/dL Normal 45-160 [facility] Comment on above: Performed By: #### 7 573 #### [facility] [address], [address] [place] [address] Stylist Apprentice: Emmett Fox MD Urinalysis - AUTOMATEDon Appearance (U) clear [employer] Other Bilirubin Ql (U) Negative [employer] ast Offerial Other Color (U) yellow [employer] Other Glucose Ql (U) Negative [facility] Other Hemoglobin Ql (U) Negative [employer] Other Ketones Ql (U) Negative [facility] Other Leukocyte esterase Test strip Ql (U) trace [employer] Other Nitrite Ql (U) Negative [employer] Other pH (U) 6.0 [pH] [employer] Other Protein Ql (U) Negative [employer] Other Specific gravity (U) [Rel density] 1.010 [employer] [facility] Other Urobilinogen (U) [Mass/Vol] 0.2 mg/dL [employer] [facility] Other Urinalysis - AUTOMATED [employer] Other Urine Cultureon 09-10-2022 Bacteria identified Cx Nom (U) Reason for Exam Dysuria Urine 25,000 colonies/ml mixed bacterial skin contaminants 2 Days PERFORMED BY: [facility] [place] [address] PATHOLOGIST BEVELING AND EDGING MACHINE OPERATOR CHANTAL VALLEJO M.D. Normal [facility] Comment on above: Performed By: #### C UU #### [facility] [address] [place] [address] [facility] XR forearm LT 2V*on 04-11-20 XR forearm LT 2V* [facility] [address] [place] [id number] XRay Report Signed Patient: Italia Núñez MR#: [id number] : 1965 Acct:[id number] Age/Sex: 57 / F ADM Date: 04/11/22 Loc: XDCLY Room: Type: [facility] Attending Dr: Paulette FREEMAN Ordering Provider: Paulette FREEMAN Date of Service: 04/11/22 XR/XR forearm LT 2V*: Fall ([id number]) XR/XR elbow LT min 3V*: Fall Copies [...] Ayala Jr., D.O.04/11/2022 1:38 PM Dictation Location: [place] [address] Transcribed By: [facility] 04/11/22 1338 Dictated By: Steve yAala Jr, DO 04/11/22 1334 Signed By: 04/11/22 1338 Normal [facility] CBC AUTO DIFFon 01-28-2022 BASO # 0.1 103/ul Normal 0.0-0.1 [facility] Comment on above: Performed By: #### C BC #### [facility] [address] [place] [address] [address] Josie Allred Basophils/100 WBC (Bld) 1.5 % Normal 0.2-2.0 [facility] Comment on above: Performed By: #### C BC #### [facility] [address] [place] [address] Dr. Josie Allred EO # 0.2 103/ul Normal 0.0-0.7 [facility] Comment on above: Performed By: #### C BC #### [facility] [address] [place] [address] Dr. Josie Allred Eosinophils/100 WBC (Bld) 3.8 % Normal 0.9-7.0 [facility] Comment on above: Performed By: #### C BC #### [facility] [address] [place] [address] Dr. Josie Allred Erythrocyte distribution width (RBC) [Ratio] 12.8 % Normal 11.0-15.0 [facility] Comment on above: Performed By: #### C BC #### [facility] [address] [place] [address] Dr. Josie Allred Hematocrit (Bld) [Volume fraction] 37.7 % Normal 36.0-48.0 [facility] Comment on above: Performed By: #### C BC #### [facility] [address] [place] [address] Dr. Josie Allred Hemoglobin (Bld) [Mass/Vol] 12.1 g/dL Normal 12.0-16.0 [facility] Comment on above: Performed By: #### C BC #### [facility] [address] [place] [address] Dr. Josie Allred IG # 0.01 10e3/ul Normal 0.00-0.03 [facility] Comment on above: Performed By: #### C BC #### [facility] [address] [place] [address] Dr. Josie Allred IG % 0.3 % Normal 0.0-0.5 [facility] Comment on above: Performed By: #### C BC #### [facility] [address] [place] [address] Dr. Josie Allred LYMPH # 1.3 103/ul Normal 1.2-3.8 [facility] Comment on above: Performed By: #### C BC #### [facility] [address] [place] [address] Dr. Josie Allred Lymphocytes/100 WBC (Bld) 33.4 % Normal 20.5-60.0 [facility] Comment on above: Performed By: #### C BC #### [facility] [address] [place] [address] Dr. Josie Allred MANUAL DIFF REQ NO Normal [facility] Comment on above: Performed By: #### C BC #### [facility] [address] [place] [address] Dr. Josie Allred MCH (RBC) [Entitic mass] 27.5 pg Normal 26.7-34.0 [facility] Comment on above: Performed By: #### C BC #### [facility] [address] [place] [address] Dr. Josie Allred MCHC (RBC) [Mass/Vol] 32.1 g/dL Normal 29.9-35.2 [facility] Comment on above: Performed By: #### C BC #### [facility] [address] [place] [address] Dr. Josie Allred MCV (RBC) [Entitic vol] 85.7 fL Normal 81.0-99.0 [facility] Comment on above: Performed By: #### C BC #### [facility] [address] [place] [address] Dr. Josie Allred MONO # 0.4 103/ul Normal 0.3-0.8 [facility] Comment on above: Performed By: #### C BC #### [facility] [address] [place] [address] Dr. Josie Allred Monocytes/100 WBC (Bld) 10.1 % Normal 1.7-12.0 [facility] Comment on above: Performed By: #### C BC #### [facility] [address] [place] [address] Dr. Josie Allred NEUT # 2.0 103/ul Normal 1.4-6.5 [facility] Comment on above: Performed By: #### C BC #### [facility] [address] [address] [address] Josie Allred Neutrophils/100 WBC (Bld) 50.9 % Normal 43.0-75.0 [facility] Comment on above: Performed By: #### C BC #### [facility] [address] [place] [address] Dr. Josie Allred Platelet mean volume (Bld) [Entitic vol] 9.3 fL Critically low 9.5-13.5 [facility] Comment on above: Performed By: #### C BC #### [facility] [address] [place] [address] Dr. Josie Allred PLT 313 103/ul Normal 150-450 [facility] Comment on above: Performed By: #### C BC #### [facility] [address] [place] [address] Dr. Josie Allred RBC 4.40 106/ul Normal 4.20-5.40 [facility] Comment on above: Performed By: #### C BC #### [facility] [address] [place] [address] Dr. Josie Allred WBC 4.0 103/ul Normal 4.0-11.0 [facility] Comment on above: Performed By: #### C BC #### [facility] [address] [place] [address] Dr. Josie Allred IRONon 01-28-2022 Iron [Mass/Vol] 55.0 ug/dL Normal 37.0-170.0 [facility] Comment on above: Performed By: #### I DENNISE #### [facility] [address] [place] [address] Dr. Josie Allred LIPID PROFILEon 01-28-2022 CHOL-HDL RATIO NORM SEE BELOW Normal [facility] Comment on above: Result Comment: 3.3 - 4.4 LOW RISK 4.4 - 7.1 AVERAGE RISK 7.1 - 11.0 MODERATE RISK >11.0 HIGH RISK Performed By: #### L IPID, CMP #### [facility] [address] [place] [address] Dr. Josie Allred Cholesterol [Mass/Vol] 221 mg/dL Critically high <=200 [facility] Comment on above: Performed By: #### L IPID, CMP #### [facility] [address] [address] [address] Josie Allred Cholesterol in HDL [Mass/Vol] 114 mg/dL Normal [facility] Comment on above: Performed By: #### L IPID, CMP #### [facility] [address] [address] [address] Josie Allred Cholesterol in LDL [Mass/Vol] 101.2 mg/dL Normal [facility] Comment on above: Performed By: #### L IPID, CMP #### [facility] [address] [address] [address] Josie Allred Cholesterol.total/ Cholesterol in HDL [Mass ratio] 1.9 {ratio} Normal [facility] Comment on above: Performed By: #### L IPID, CMP #### [facility] [address] [address] [address] Josie Allred HDL NORMAL > or = 60 mg/dl - LOW CARDIOVASCULAR RISK <40 mg/dl - HIGH CARDIOVASCULAR RISK Normal [facility] Comment on above: Performed By: #### L IPID, CMP #### [facility] [address] [place] [address] Dr. Josie Allred LDL CALC NORMAL SEE BELOW Normal [facility] Comment on above: Result Comment: <100 mg/dl OPTIMAL 100 - 129 mg/dl NEAR OR ABOVE OPTIMAL 130 - 159 mg/dl BORDERLINE HIGH 160 - 189 mg/dl HIGH >190 mg/dl VERY HIGH Performed By: #### L IPID, CMP #### [facility] [address] [address] [address] Josie Allred Triglyceride [Mass/Vol] 29 mg/dL Normal <=150 [facility] Comment on above: Performed By: #### L IPID, CMP #### [facility] [address] [address] [address] Josie Allred VLDL CALC 5.8 mg/dL Normal [facility] Comment on above: Performed By: #### L IPID, CMP #### [facility] [address] [address] [address] Josie Allred MG MAMM SCREEN 3D АЛЕКСАНДР CADon 01-28-2022 MG MAMM SCREEN 3D АЛЕКСАНДР CAD Patient: ITALIA NÚÑEZ Exam Date: 01/28/2022 : 1965 Gender:F Ordering : DR CHELSEY DILL Admission #: [id number] Family : Order #: [id number] CLICK HERE TO VIEW EXAM RADIOLOGY REPORT PROCEDURE: MAMMOGRAM SCREENING 3D BILATERAL CAD COMPARISON: MG MAMM SCREEN АЛЕКСАНДР W CAD, 12/02/2020. MG MAMM SCREEN АЛЕКСАНДР W CAD, 11/25/2019. INDICATIONS: Screening mammography Calculator Name NCI Breast Cancer Risk Assessment Tool 5 Year Breast Cancer Risk 1.30% Lifetime Breast Cancer Risk 8.50% Personal Breast Cancer No Personal Ovarian Cancer No Treatments Bowel resection Family Cancers Father with mult.myeloma cancer at age 68; Mother with colon cancer at age 79. LOCATION: [facility] BREAST COMPOSITION: Heterogeneously dense,which may obscure small [...] LUMP SHOULD BE BIOPSIED. Dictated by: Golden Randoplh MD on 01/28/2022 at 08:06 Approved by: Golden Randolph MD on 01/28/2022 at 08:07 Normal [facility] PROF 14(COMP METB)on 022 Albumin [Mass/Vol] 3.9 g/dL Normal 3.5-5.0 [facility] Comment on above: Performed By: #### L ASPEN CMP #### [facility] [address] [address] [address] Josie Allred Albumin/Globulin [Mass ratio] 1.1 {ratio} Normal [facility] Comment on above: Performed By: #### L ASPEN CMP #### [facility] [address] [address] [address] Josie Allred ALP [Catalytic activity/Vol] 56 U/L Normal 38-126 [facility] Comment on above: Performed By: #### L IPID, CMP #### [facility] [address] [place] [address] Dr. Josie Allred ALT [Catalytic activity/Vol] 25 U/L Normal 9-52 [facility] Comment on above: Performed By: #### L IPID, CMP #### [facility] [address] [place] [address] Dr. Josie Allred Anion gap [Moles/Vol] 12.2 mmol/L Normal [facility] Comment on above: Performed By: #### L IPID, CMP #### [facility] [address] [place] [address] Dr. Josie Allred AST [Catalytic activity/Vol] 21 U/L Normal 14-36 [facility] Comment on above: Performed By: #### L IPID, CMP #### [facility] [address] [place] [address] Dr. Josie Allred Bilirubin [Mass/Vol] 0.3 mg/dL Normal 0.2-1.3 [facility] Comment on above: Performed By: #### L IPID, CMP #### [facility] [address] [place] [address] Dr. Josie Allred Calcium [Mass/Vol] 8.8 mg/dL Normal 8.4-10.2 [facility] Comment on above: Performed By: #### L IPID, CMP #### [facility] [address] [place] [address] Dr. Josie Allred Chloride [Moles/Vol] 104 mmol/L Normal 98-107 [facility] Comment on above: Performed By: #### L IPID, CMP #### [facility] [address] [place] [address] Dr. Josie Allred CO2 [Moles/Vol] 27.1 mmol/L Normal 22.0-30.0 [facility] Comment on above: Performed By: #### L IPID, CMP #### [facility] [address] [address] [address] Josie Allred Creatinine [Mass/Vol] 0.81 mg/dL Normal 0.52-1.04 [facility] Comment on above: Performed By: #### L IPID, CMP #### [facility] [address] [address] [address] Josie Allred EGFR-AF JAPANESE >60 Normal >=60 [facility] Comment on above: Performed By: #### L IPID, CMP #### [facility] [address] [address] [address] Josie Allred EGFR-NON AF JAPANESE >60 Normal >=60 [facility] Comment on above: Performed By: #### L IPID, CMP #### [facility] [address] [address] [address] Josie Allred Globulin (S) [Mass/Vol] 3.5 g/dL Normal [facility] Comment on above: Performed By: #### L IPID, CMP #### [facility] [address] [place] [address] Dr. Josie Allred Glucose [Mass/Vol] 100 mg/dL Normal 74-106 [facility] Comment on above: Performed By: #### L IPID, CMP #### [facility] [address] [address] [address] Josie Allred Potassium [Moles/Vol] 4.3 mmol/L Normal 3.4-5.0 [facility] Comment on above: Performed By: #### L IPID, CMP #### [facility] [address] [address] [address] Josie Allred Protein [Mass/Vol] 7.4 g/dL Normal 6.1-8.2 [facility] Comment on above: Performed By: #### L IPID, CMP #### [facility] [address] [address] [address] Josie Allred Sodium [Moles/Vol] 139 mmol/L Normal 137-145 [facility] Comment on above: Performed By: #### L IPID, CMP #### [facility] [address] [address] [address] Josie Allred Urea nitrogen [Mass/Vol] 17.0 mg/dL Normal 7.0-17.0 [facility] Comment on above: Performed By: #### L IPID, CMP #### [facility] [address] [address] [address] Jsoie Allred Urea nitrogen/Creatinin e [Mass ratio] 21.0 mg/mg Normal [facility] Comment on above: Performed By: #### L IPID, CMP #### [facility] [address] [address] [address] Josie Allred POINT OF CARE GLUCOSEon 11-27 Glucose [Mass/Vol] 156 mg/dL Critically high 74-106 [facility] Comment on above: Performed By: #### P OCGLUC #### [facility] [address] [address] [address] Josie Allred Vital Signs Date Time Vital Sign Value Performing Clinician Facility 09-10-2022 10:55-0400 Body height 167.64 cm Indigo Mckeon Other [facility] Other 09-10-2022 10:55-0400 Body mass index (BMI) [Ratio] 24.37 kg/m2 Indigo Mckeon Other [facility] Other 09-10-2022 10:55-0400 Body temperature 97.5 [degF] Indigo Mckeon Other [facility] Other 09-10-2022 10:55-0400 Body weight 68.49 kg Indigo Mckeon Other [facility] Other 09-10-2022 10:55-0400 Diastolic blood pressure 61 mm[Hg] Indigo Mckeon Other [facility] Other 09-10-2022 10:55-0400 Respiratory rate 18 /min Indigo Mckeon Other [facility] Other 09-10-2022 10:55-0400 SaO2% (BldA) [Mass fraction] 99 % Indigo Mckeon Other [facility] Other 09-10-2022 10:55-0400 Systolic blood pressure 117 mm[Hg] Indigo Mckeon Other [facility] Other Encounters Encounter Date Encounter Type Care Provider Facility Start: 06-13-2024 End: 06-13-2024 ambulatory MARYAN JOANNE Not Available Start: 06-02-2024 End: 06-02-2024 ambulatory DIETER JYOTHI Not Available Start: 05-29-2024 End: 05-29-2024 ambulatory MARYAN JOANNE Not Available Start: 04-29-2024 End: 04-29-2024 ambulatory MARYAN JOANNE Not Available Start: 04-09-2024 End: 04-10-2024 ambulatory [facility] Start: 04-09-2024 End: 04-09-2024 ambulatory [facility] Start: 09-10-2022 Office outpatient ne w 20 minutes Indigo Mckeon [facility] Start: 09-10-2022 End: 09-10-2022 ambulatory DO Josef House Work Phone: [facility] Other Start: 09-10-2022 End: 09-10-2022 Departed Referred DO Josef House Work Phone: [facility] [place] Start: 04-11-2022 End: 04-11-2022 ambulatory [facility] Facility:[facility] Start: 04-11-2022 End: 04-11-2022 Patient encounter procedure DO Josef House Work Phone: [facility] Start: 02-01-2022 Encounter for genera l adult medical examination without abnormal findings [facility] Start: 01-28-2022 End: 01-29-2022 Encounter for general adult medical examination without abnormal findings [facility] Facility:[facility] Start: 01-28-2022 End: 01-29-2022 ambulatory [facility] Facility:[facility] Start: 11-09-2017 Encounter for genera l adult medical examination without abnormal findings [facility] Start: 11-01-2017 Encounter for genera l adult medical examination without abnormal findings [facility] Procedures Date Procedure Procedure Detail Performing Clinician Start: 04-11-2022 Plain X-ray of left elbow DO [facility] Work Phone: Start: 04-11-2022 Plain X-ray of left forearm DO [facility] Work Phone: Plan of Treatment Date Care Activity Detail Author Bacteria identified in Urine by Culture [facility] Payers Date Payer Category Payer Self-pay [id number] 2022 Unknown [id number] 1965 Unknown [id number] 2.16.84 [id number] 1965 Unknown [id number] 2.16.84 [id number] 1965 Unknown [id number] 2.16.8 [id number] 1965 Unknown [id number] 2.16.8 [id number] 1965 Unknown [id number] 2.16.84 [id number] 1965 Unknown [id number] 2.16.84 [id number] 1965 Unknown [id number] 2.16.84 [id number] 1965 Unknown [id number] 2.16.84 [id number] 1959 Unknown [id number] Unknown [id number] 2.16.8 [id number] Unknown [id number] 2.16.8 [id number] Social History Date Type Detail Facility Tobacco smoking status NHIS Unknown if ever smoked [facility] Work Phone: Start: 1965 Sex Assigned At Female F [facility] Sex Assigned At Sex Assigned At Bir th [facility] Other Evaluation note 09-10-2022 Note Date & [...] understanding and is agreeable to treatment plan [facility] Other Evaluation note Note Date & Type Note Facility Evaluation note No assessment information availa ble [facility] Work Phone: Summary Purpose Family [...] section and content) DATE CREATED AUTHOR 02/03/2022 [facility] DATE CREATED AUTHOR AUTHOR'S ORGANIZ ATION 09/18/2022 [facility] DATE CREATED AUTHOR AUTHOR'S ORGANIZ ATION 07/04/2023 [facility] DATE CREATED AUTHOR AUTHOR'S ORGANIZ ATION 04/10/2024 [facility] DATE CREATED AUTHOR AUTHOR'S ORGANIZ ATION 04/11/2024 [facility] DATE CREATED AUTHOR AUTHOR'S ORGANIZ ATION 06/16/2024 [facility] [employer] Care Teams (unrecognized sec tion and content) Team Status: Inactive Member Role Status Dates Josef Portillo , Primary Care Provider Active SUZY Fish[employer] Attending Provider Active Team Status: Active Member Role Status Dates Josef Portillo , DO Primary Care Provider Active Team Status: Inactive Member Role Status Dates Josef Portillo , Primary Care Provider Active Indigo Mckeon APRN [...] BE BASED ON THE PRIMARY CLINICAL RECORDS. [facility]. provides no warranty or guarantee of the accuracy or completeness of information in this document.
== END 2024-07-01 21:21 | disposition home or self-care (01) ==
LOC: LAB 21:20
PROVIDERS: PCP Nurse Practitioner; Visit Provider Physician Assistant
DX: Z01.419 Encounter for gynecological examination (general) (routine) without abnormal findings (principal); Z90.710 Acquired absence of both cervix and uterus
CPT/HCPCS: 87624; 88175

== ENCOUNTER 2024-07-02 09:56 | Outpatient (OUT) | payer OTHER, SELFPAY ==
--- NOTE | 2024-07-02 10:02 | ECG_ITS ---
[facility] Test Date: 2024-07-02 Pat Name: LUCILA NÚÑEZ Department: Room: - Gender: Female [employer] Super[employer]: : 1965 Requested By: MARYAN RUBIO Order Number: [id number] Reading MD: MANI VELEZ Measurements Intervals [place] Rate: 61 P: 7 IA: 165 QRS: 67 QRSD: 94 T: 38 QT: 414 QTc: 417 Interpretive Statements SINUS RHYTHM No previous ECG available for comparison Electronically Signed On 07-02-2024 22:26:39 EDT by MANI VELEZ
--- OUTSIDE RECORDS SUMMARY | 2024-07-02 10:16 | XMS_ITS | CCD ---
Author Organization [facility] Care Team Providers Care Air Duct Mechanic Name Role Phone PAULETTE MARCELINO Admitting Unavailable PAULETTE MARCELINO Attending Unavailable PAULETTE MARCELINO Consulting Unavailable FUENTES, DR BARBOSA Admitting Unavailable FUENTES, DR BARBOSA Attending Unavailable BERKELEY, DR GOLDEN Connell Consulting Unavailable FUENTES, DR BARBOSA Consulting Unavailable DO Josef Portillo Primary Care Provider LYDIA Marcelino Attending Provider [phone] Indigo Mckeon Unavailable DO Josef Portillo Primary [...] IS VERY IMPORTANT TO YOUR HEALTH. THE [employer] GUIDELINES RECOMMEND THAT WOMEN 40 [...] 24 ABSOLUTE BASOPHIL 0.0 X10E9/L Normal 0.0-0.2 [facility] Comment on above: Performed By: #### C BCA, CMP, FEPR, 29927-7, 3016-3, 2276-4, 2132-07 #### [facility] ([id number]) [address], [address] [place] [address] ABSOLUTE NEUTROPHIL 1.8 X10E9/L Normal 1.5-6.6 [facility] Comment on above: Performed By: #### C BCA, CMP, FEPR, 56322-3, 3016-3, 2275-4, 2132-07 #### [facility] ([id number]) [address] [place] [address] Basophils/100 WBC (Bld) 1.4 % Normal [facility] Comment on above: Performed By: #### C BCA, CMP, FEPR, 91633-5, 3016-3, 2276-4, 2132-07 #### [facility] ([id number]) [address], [facility] [address] [place] [address] Eosinophils (Bld) [#/Vol] 0.1 10*3/uL Normal 0.0-0.4 [facility] Comment on above: Performed By: #### C BCA, CMP, FEPR, 24737-1, 3016-3, 2276-4, 2132-07 #### [facility] ([id number]) [address], [address] [place] [address] Eosinophils/100 WBC (Bld) 4.2 % Normal [facility] Comment on above: Performed By: #### C BCA, CMP, FEPR, 95489-9, 3016-3, 2276-4, 2132-07 #### [facility] ([id number]) [address] [address] Erythrocyte distribution width (RBC) [Ratio] 13.3 % Normal 11.5-15.0 [facility] Comment on above: Performed By: #### C BCA, CMP, FEPR, 70675-1, 3016-3, 2276-4, 2132-07 #### [facility] ([id number]) [address] [address] Hematocrit (Bld) [Volume fraction] 35.8 % Normal 35-47 [facility] Comment on above: Performed By: #### C BCA, CMP, FEPR, 81442-3, 3016-3, 2275-4, 2132-07 #### [facility] ([id number]) [address] [address] Hemoglobin (Bld) [Mass/Vol] 12.0 g/dL Normal 11.7-15.5 [facility] Comment on above: Performed By: #### C BCA, CMP, FEPR, 48133-1, 3016-3, 6-4, 2132-07 #### [facility] ([id number]) [address] [address] Lymphocytes (Bld) [#/Vol] 1.3 10*3/uL Normal 1.0-3.5 [facility] Comment on above: Performed By: #### C BCA, CMP, FEPR, 77315-0, 3016-3, 2276-4, 2132-07 #### [facility] ([id number]) [address] [address] Lymphocytes/100 WBC (Bld) 35.0 % Normal [facility] Comment on above: Performed By: #### C BCA, CMP, FEPR, 53114-1, 3016-3, 2276-4, 2132-07 #### [facility] ([id number]) [address] [place] [address] MCH (RBC) [Entitic mass] 27.9 pg Normal 27-34 [facility] Comment on above: Performed By: #### C BCA, CMP, FEPR, 01296-5, 3016-3, 2276-4, 2132-07 #### [facility] ([id number]) [address], [facility] [address] [place] [address] MCHC (RBC) [Mass/Vol] 33.6 g/dL Normal 32-36 [facility] Comment on above: Performed By: #### C BCA, CMP, FEPR, 46737-3, 3016-3, 2275-4, 2132-07 #### [facility] ([id number]) [address], [facility] [address] [place] [address] MCV (RBC) [Entitic vol] 83 fL Normal 80-100 [facility] Comment on above: Performed By: #### C BCA, CMP, FEPR, 12773-6, 3016-3, 2275-4, 2132-07 #### [facility] ([id number]) [address], [facility] [address] [place] [address] Monocytes (Bld) [#/Vol] 0.3 10*3/uL Normal 0-0.9 [facility] Comment on above: Performed By: #### C BCA, CMP, FEPR, 04681-9, 3016-3, 2275-4, 2132-07 #### [facility] ([id number]) [address] [address] [place] [address] Monocytes/100 WBC (Bld) 9.7 % Normal [facility] Comment on above: Performed By: #### C BCA, CMP, FEPR, 54192-3, 3016-3, 2276-4, 2132-07 #### [facility] ([id number]) [address], [facility] [address] [place] [address] Neutrophils/100 WBC (Bld) 49.7 % Normal [facility] Comment on above: Performed By: #### C BCA, CMP, FEPR, 00764-1, 3016-3, 2276-4, 2132-07 #### [facility] ([id number]) [address], [address] [place] [address] Platelet mean volume (Bld) [Entitic vol] 7.7 fL Normal 7-12 [facility] Comment on above: Performed By: #### C BCA, CMP, FEPR, 53035-0, 3016-3, 2276-4, 2132-07 #### [facility] ([id number]) [address], [address] [place] [address] Platelets (Bld) [#/Vol] 324 10*3/uL Normal 150-450 [facility] Comment on above: Performed By: #### C BCA, CMP, FEPR, 23981-9, 3016-3, 2276-4, 2132-07 #### [facility] ([id number]) [address], [address] [place] [address] RBC COUNT 4.31 X10E12/L Normal 3.80-5.20 [facility] Comment on above: Performed By: #### C BCA, CMP, FEPR, 21805-1, 3016-3, 2276-4, 2132-07 #### [facility] ([id number]) [address], [address] [place] [address] WBC (Bld) [#/Vol] 3.6 10*3/uL Low 4.0-11.0 [facility] Comment on above: Performed By: #### C BCA, CMP, FEPR, 35088-1, 3016-3, 2276-4, 2132-07 #### [facility] ([id number]) [address], [address] [place] [address] COMPREHENSIVE METABOLIC PANE Drew 05-14-2024 Albumin [Mass/Vol] 4.1 g/dL Normal 3.2-5.3 [facility] Comment on above: Performed By: #### C BCA, CMP, FEPR, 77177-5, 3016-3, 2276-4, 2132-07 #### [facility] ([id number]) [address], [address] [place] [address] ALP [Catalytic activity/Vol] 53 U/L Normal 39-130 [facility] Comment on above: Performed By: #### C BCA, CMP, FEPR, 54991-6, 3016-3, 2276-4, 2132-07 #### [facility] ([id number]) [address], [address] [place] [address] ALT [Catalytic activity/Vol] 19 U/L Normal 0-31 [facility] Comment on above: Performed By: #### C BCA, CMP, FEPR, 74739-8, 3016-3, 6-4, 2132-07 #### [facility] ([id number]) [address], [address] [place] [address] Anion gap [Moles/Vol] 9 mmol/L Normal 5-15 [facility] Comment on above: Performed By: #### C BCA, CMP, FEPR, 75630-2, 3016-3, 2276-4, 2132-07 #### [facility] ([id number]) [address], [address] [place] [address] AST [Catalytic activity/Vol] 22 U/L Normal 0-41 [facility] Comment on above: Performed By: #### C BCA, CMP, FEPR, 23862-6, 3016-3, 2276-4, 2132-07 #### [facility] ([id number]) [address], [address] [place] [address] Bilirubin [Mass/Vol] 0.4 mg/dL Normal 0.3-1.2 [facility] Comment on above: Performed By: #### C BCA, CMP, FEPR, 73157-1, 3016-3, 2276-4, 2132-07 #### [facility] ([id number]) [address], [address] [place] [address] Calcium [Mass/Vol] 9.2 mg/dL Normal 8.5-10.5 [facility] Comment on above: Performed By: #### C BCA, CMP, FEPR, 26199-6, 3016-3, 2276-4, 2132-07 #### [facility] ([id number]) [address], [address] [place] [address] Chloride [Moles/Vol] 106 mmol/L Normal 98-109 [facility] Comment on above: Performed By: #### C BCA, CMP, FEPR, 81269-8, 3016-3, 6-4, 2132-07 #### [facility] ([id number]) [address] [place] [address] CO2 [Moles/Vol] 25 mmol/L Normal 22-32 [facility] Comment on above: Performed By: #### C BCA, CMP, FEPR, 40485-3, 3016-3, 2276-4, 2132-07 #### [facility] ([id number]) [address] [place] [address] Creatinine [Mass/Vol] 0.67 mg/dL Normal 0.40-1.00 [facility] Comment on above: Result Comment: METH OD TRACEABLE TO IDMS STANDARD Performed By: #### C BCA, CMP, FEPR, 79124-3, 3016-3, 2276-4, 2132-07 #### [facility] ([id number]) [address] [place] [address] eGFR (CKD-EPI) NON-RACE DEPENDENT >90 Normal >59 [facility] Comment on above: Result Comment: Reported eGFR is based on the CKD-EPI 2020 equation that does not use a race coefficient. Performed By: #### C BCA, CMP, FEPR, 73468-6, 3016-3, 2276-4, 2132-07 #### [facility] ([id number]) [address] [place] [address] Glucose [Mass/Vol] 96 mg/dL Normal 65-99 [facility] Comment on above: Performed By: #### C BCA, CMP, FEPR, 87645-7, 3016-3, 2275-4, 2132-07 #### [facility] ([id number]) [address], [address] [place] [address] Potassium [Moles/Vol] 4.4 mmol/L Normal 3.5-5.0 [facility] Comment on above: Performed By: #### C BCA, CMP, FEPR, 52405-6, 3016-3, 2275-4, 2132-07 #### [facility] ([id number]) [address] [place] [address] Protein [Mass/Vol] 6.8 g/dL Normal 6.0-8.0 [facility] Comment on above: Performed By: #### C BCA, CMP, FEPR, 47080-0, 3016-3, 6-4, 2132-07 #### [facility] ([id number]) [address], [address] [place] [address] Sodium [Moles/Vol] 140 mmol/L Normal 134-146 [facility] Comment on above: Performed By: #### C BCA, CMP, FEPR, 17057-3, 3016-3, 2276-4, 2132-07 #### [facility] ([id number]) [address], [address] [place] [address] Urea nitrogen [Mass/Vol] 15 mg/dL Normal 5-23 [facility] Comment on above: Performed By: #### C BCA, CMP, FEPR, 35066-7, 3016-3, 2276-4, 2131-9 #### [facility] ([id number]) [address], [address] [place] [address] FERRITINon 04-09-2024 Ferritin [Mass/Vol] 7 ng/mL Low 11-307 [facility] Comment on above: Performed By: #### C BCA, CMP, FEPR, 20900-1, 3016-3, 2276-4, 2132-07 #### [facility] ([id number]) [address], [address] [place] [address] IRON PROFILEon 04-09-2024 Iron [Mass/Vol] 77 ug/dL Normal 50-170 [facility] Comment on above: Performed By: #### C BCA, CMP, FEPR, 31801-8, 3016-3, 2276-4, 2132-07 #### [facility] ([id number]) [address], [address] [place] [address] IRON BINDING 402 ug/dL Normal 250-425 [facility] Comment on above: Performed By: #### C BCA, CMP, FEPR, 86403-5, 3016-3, 2276-4, 2132-07 #### [facility] ([id number]) [address], [address] [place] [address] IRON SATURATION 19 % SATURATION Normal 15-50 [facility] Comment on above: Performed By: #### C BCA, CMP, FEPR, 13094-2, 3016-3, 2276-4, 2131-9 #### [facility] ([id number]) [address], [address] [place] [address] Lipid 1996 panelon Cholesterol [Mass/Vol] 192 mg/dL Normal 150-200 [facility] Comment on above: Performed By: #### C BCA, CMP, FEPR, 62358-2, 3016-3, 2275-4, 2132-07 #### [facility] ([id number]) [address], [address] [place] [address] Cholesterol in HDL [Mass/Vol] 96 mg/dL Normal >39 [facility] Comment on above: Result Comment: HDL <40 mg/dL - High Risk HDL > or = 40mg/dL- Desirable HDL >60 mg/dL - Negative Risk Performed By: #### C BCA, CMP, FEPR, 86334-3, 3015-3, 2276-02, 2132-07 #### [facility] ([id number]) [address], [address] [place] [address] Cholesterol in LDL [Mass/Vol] 89 mg/dL Normal <130 [facility] Comment on above: Result Comment: LDL <100 mg/dL - Desirable LDL >160 mg/dL - High Risk Performed By: #### C BCA, CMP, FEPR, 84430-1, 3015-3, 2275-4, 2132-07 #### [facility] ([id number]) [address], [address] [place] [address] Cholesterol in VLDL [Mass/Vol] 7 mg/dL Normal 0-30 [facility] Comment on above: Performed By: #### C BCA, CMP, FEPR, 27958-9, 3015-3, 2275-4, 2132-07 #### [facility] ([id number]) [address] [place] [address] CHOLESTEROL:HDL 2.0 Normal 1.0-5.0 [facility] Comment on above: Performed By: #### C BCA, CMP, FEPR, 14320-7, 3016-3, 2276-4, 2131-9 #### [facility] ([id number]) [address], [address] [place] [address] Triglyceride [Mass/Vol] 35 mg/dL Normal 27-150 [facility] Comment on above: Performed By: #### C BCA, CMP, FEPR, 54599-7, 3016-3, 2276-4, 2132-07 #### [facility] ([id number]) [address] [place] [address] TSH Qnon 04-09-2024 TSH 2.86 uIU/mL Normal 0.49-4.67 [facility] Comment on above: Performed By: #### C BCA, CMP, FEPR, 14509-2, 3016-3, 2276-4, 9 #### [facility] ([id number]) [address] [place] [address] VITAMIN B12on 04-09-2024 Cobalamin (Vitamin B12) [Mass/Vol] 208 pg/mL Normal 180-914 [facility] Comment on above: Performed By: #### C BCA, CMP, FEPR, 97649-7, 3016-3, 2276-4, 9 #### [facility] ([id number]) [address] [place] [address] IRON AND TOTAL IRON BINDING CAPACITYon 07-04-2023 % SATURATION 22 % (calc) Normal 16-45 [facility] Comment on above: Performed By: #### 7 573 #### [facility] [address] [address] Survey Research Manager: Emmett Fox MD IRON BINDING CAPACITY 334 mcg/dL (calc) Normal 250-450 [facility] Comment on above: Performed By: #### 7 573 #### [facility] [address], [address] [place] [address] Survey Research Manager: Emmett Fox MD IRON, TOTAL 73 mcg/dL Normal 45-160 [facility] Comment on above: Performed By: #### 7 573 #### [facility] [address], [address] [place] [address] Survey Research Manager: Emmett Fox MD Urinalysis - AUTOMATEDon Appearance (U) clear [employer] Other Bilirubin Ql (U) Negative [employer] Other Color (U) yellow [employer] Other Glucose Ql (U) Negative [employer] Other Hemoglobin Ql (U) Negative [employer] Other Ketones Ql (U) Negative [employer] Other Leukocyte esterase Test strip Ql (U) trace [employer] Other Nitrite Ql (U) Negative [employer] Other pH (U) 6.0 [pH] [employer] Other Protein Ql (U) Negative [employer] Other Specific gravity (U) [Rel density] 1.010 [employer] Other Urobilinogen (U) [Mass/Vol] 0.2 mg/dL [employer] Other Urinalysis - AUTOMATED [employer] Other Urine Cultureon 09-10-2022 Bacteria identified Cx Nom (U) Reason for Exam Dysuria Urine 25,000 colonies/ml mixed bacterial skin contaminants 2 Days PERFORMED BY: [facility] [place] [address] PATHOLOGIST DIRECTOR OF PRODUCT DESIGN CHANTAL VALLEJO M.D. Normal [facility] Comment on above: Performed By: #### C UU #### [facility] [address] [place] [address] [facility] XR forearm LT 2V*on 04-11-20 XR forearm LT 2V* [facility] [place] [address] [id number] XRay Report Signed Patient: Italia Núñez MR#: [id number] : 1965 Acct:[id number] Age/Sex: 57 / F ADM Date: 04/11/22 Loc: XDCLY Room: Type: [facility] Attending Dr: Paulette FREEMAN Ordering Provider: Paulette FREEMAN Date of Service: 04/11/22 XR/XR forearm LT 2V*: Fall ([id number]) XR/XR elbow LT min 3V*: Fall Copies [...] Ayala Jr., D.O.04/11/2022 1:38 PM Dictation Location: [place] [address] Transcribed By: [facility] 04/11/22 1338 Dictated By: Steve Ayala Jr, DO 04/11/22 1334 Signed By: 04/11/22 1338 Normal [facility] CBC AUTO DIFFon 01-28-2022 BASO # 0.1 103/ul Normal 0.0-0.1 [facility] Comment on above: Performed By: #### C BC #### [facility] [address] [address] [address] Josie Allred Basophils/100 WBC (Bld) 1.5 % Normal 0.2-2.0 [facility] Comment on above: Performed By: #### C BC #### [facility] [address] [place] [address] Dr. Josie Allred EO # 0.2 103/ul Normal 0.0-0.7 [facility] Comment on above: Performed By: #### C BC #### [facility] [address] [place] [address] Dr. Josie Allred Eosinophils/100 WBC (Bld) 3.8 % Normal 0.9-7.0 [facility] Comment on above: Performed By: #### C BC #### [facility] [address] [place] [address] Dr. Josie Allred Erythrocyte distribution width (RBC) [Ratio] 12.8 % Normal 11.0-15.0 [facility] Comment on above: Performed By: #### C BC #### [facility] [address] [place] [address] Dr. Josie Allred Hematocrit (Bld) [Volume fraction] 37.7 % Normal 36.0-48.0 [facility] Comment on above: Performed By: #### C BC #### [facility] [address] [place] [address] Dr. Josie Allred Hemoglobin (Bld) [Mass/Vol] 12.1 g/dL Normal 12.0-16.0 [facility] Comment on above: Performed By: #### C BC #### [facility] [address] [place] [address] Dr. Josie Allred IG # 0.01 10e3/ul Normal 0.00-0.03 [facility] Comment on above: Performed By: #### C BC #### [facility] [address] [place] [address] Dr. Josie Allred IG % 0.3 % Normal 0.0-0.5 [facility] Comment on above: Performed By: #### C BC #### [facility] [address] [place] [address] Dr. Josie Allred LYMPH # 1.3 103/ul Normal 1.2-3.8 [facility] Comment on above: Performed By: #### C BC #### [facility] [address] [place] [address] Dr. Josie Allred Lymphocytes/100 WBC (Bld) 33.4 % Normal 20.5-60.0 [facility] Comment on above: Performed By: #### C BC #### [facility] [address] [place] [address] Dr. Josie Allred MANUAL DIFF REQ NO Normal [facility] Comment on above: Performed By: #### C BC #### [facility] [address] [place] [address] Dr. Josie Allrde MCH (RBC) [Entitic mass] 27.5 pg Normal 26.7-34.0 [facility] Comment on above: Performed By: #### C BC #### [facility] [address] [place] [address] Dr. Josie Allred MCHC (RBC) [Mass/Vol] 32.1 g/dL Normal 29.9-35.2 [facility] Comment on above: Performed By: #### C BC #### [facility] [address] [place] [address] Dr. Josie Allred MCV (RBC) [Entitic vol] 85.7 fL Normal 81.0-99.0 [facility] Comment on above: Performed By: #### C BC #### [facility] [address] [place] [address] Dr. Josie Allred MONO # 0.4 103/ul Normal 0.3-0.8 [facility] Comment on above: Performed By: #### C BC #### [facility] [address] [place] [address] Dr. Josie Allred Monocytes/100 WBC (Bld) 10.1 % Normal 1.7-12.0 [facility] Comment on above: Performed By: #### C BC #### [facility] [address] [place] [address] Dr. Josie Allred NEUT # 2.0 103/ul Normal 1.4-6.5 [facility] Comment on above: Performed By: #### C BC #### [facility] [address] [address] [address] Josie Allred Neutrophils/100 WBC (Bld) 50.9 % Normal 43.0-75.0 [facility] Comment on above: Performed By: #### C BC #### [facility] [address] [place] [address] Dr. Josie Allred Platelet mean volume (Bld) [Entitic vol] 9.3 fL Critically low 9.5-13.5 [facility] Comment on above: Performed By: #### C BC #### [facility] [address] [place] [address] Dr. Josie Allred PLT 313 103/ul Normal 150-450 [facility] Comment on above: Performed By: #### C BC #### [facility] [address] [place] [address] Dr. Josie Allred RBC 4.40 106/ul Normal 4.20-5.40 [facility] Comment on above: Performed By: #### C BC #### [facility] [address] [place] [address] Dr. Josie Allred WBC 4.0 103/ul Normal 4.0-11.0 [facility] Comment on above: Performed By: #### C BC #### [facility] [address] [place] [address] Dr. Josie Allred IRONon 01-28-2022 Iron [Mass/Vol] 55.0 ug/dL Normal 37.0-170.0 [facility] Comment on above: Performed By: #### I DENNISE #### [facility] [address] [place] [address] Dr. Josie Allred LIPID PROFILEon 01-28-2022 CHOL-HDL RATIO NORM SEE BELOW Normal [facility] Comment on above: Result Comment: 3.3 - 4.4 LOW RISK 4.4 - 7.1 AVERAGE RISK 7.1 - 11.0 MODERATE RISK >11.0 HIGH RISK Performed By: #### L IPID, CMP #### [facility] [address] [place] [address] Dr. Josie Allred Cholesterol [Mass/Vol] 221 mg/dL Critically high <=200 [facility] Comment on above: Performed By: #### L IPID, CMP #### [facility] [address] [address] [address] Josie Allred Cholesterol in HDL [Mass/Vol] 114 mg/dL Normal [facility] Comment on above: Performed By: #### L IPID, CMP #### [facility] [address] [address] [address] Josie Allred Cholesterol in LDL [Mass/Vol] 101.2 mg/dL Normal [facility] Comment on above: Performed By: #### L IPID, CMP #### [facility] [address] [address] [address] Josie Allred Cholesterol.total/ Cholesterol in HDL [Mass ratio] 1.9 {ratio} Normal [facility] Comment on above: Performed By: #### L IPID, CMP #### [facility] [address] [address] [address] Josie Allred HDL NORMAL > or = 60 mg/dl - LOW CARDIOVASCULAR RISK <40 mg/dl - HIGH CARDIOVASCULAR RISK Normal [facility] Comment on above: Performed By: #### L IPID, CMP #### [facility] [address] [place] [address] Dr. Josie Allred LDL CALC NORMAL SEE BELOW Normal [facility] Comment on above: Result Comment: <100 mg/dl OPTIMAL 100 - 129 mg/dl NEAR OR ABOVE OPTIMAL 130 - 159 mg/dl BORDERLINE HIGH 160 - 189 mg/dl HIGH >190 mg/dl VERY HIGH Performed By: #### L IPID, CMP #### [facility] [address] [address] [address] Josie Allred Triglyceride [Mass/Vol] 29 mg/dL Normal <=150 [facility] Comment on above: Performed By: #### L IPID, CMP #### [facility] [address] [address] [address] Josie Allred VLDL CALC 5.8 mg/dL Normal [facility] Comment on above: Performed By: #### L IPID, CMP #### [facility] [address] [address] [address] Josie Allred MG MAMM SCREEN 3D АЛЕКСАНДР CADon 01-28-2022 MG MAMM SCREEN 3D АЛЕКСАНДР CAD Patient: ITALIA NÚÑEZ Exam Date: 01/28/2022 : 1965 Gender:F Ordering : DR CHELSEY DILL Admission #: [id number] Family : Order #: [id number] CLICK HERE TO VIEW EXAM RADIOLOGY REPORT [...] colon cancer at age 79. LOCATION: [facility] BREAST COMPOSITION: Heterogeneously dense,which may obscure [...] Randolph MD on 01/28/2022 at 08:07 Normal [facility] PROF 14(COMP METB)on 022 Albumin [Mass/Vol] 3.9 g/dL Normal 3.5-5.0 [facility] Comment on above: Performed By: #### L ASPEN CMP #### [facility] [address] [address] [address] Josie Allred Albumin/Globulin [Mass ratio] 1.1 {ratio} Normal [facility] Comment on above: Performed By: #### L ASPEN CMP #### [facility] [address] [address] [address] Josie Allred ALP [Catalytic activity/Vol] 56 U/L Normal 38-126 [facility] Comment on above: Performed By: #### L IPID, CMP #### [facility] [address] [place] [address] Dr. Josie Allred ALT [Catalytic activity/Vol] 25 U/L Normal 9-52 [facility] Comment on above: Performed By: #### L IPID, CMP #### [facility] [address] [place] [address] Dr. Josie Allred Anion gap [Moles/Vol] 12.2 mmol/L Normal [facility] Comment on above: Performed By: #### L IPID, CMP #### [facility] [address] [place] [address] Dr. Josie Allred AST [Catalytic activity/Vol] 21 U/L Normal 14-36 [facility] Comment on above: Performed By: #### L IPID, CMP #### [facility] [address] [place] [address] Dr. Josie Allred Bilirubin [Mass/Vol] 0.3 mg/dL Normal 0.2-1.3 [facility] Comment on above: Performed By: #### L IPID, CMP #### [facility] [address] [place] [address] Dr. Josie Allred Calcium [Mass/Vol] 8.8 mg/dL Normal 8.4-10.2 [facility] Comment on above: Performed By: #### L IPID, CMP #### [facility] [address] [place] [address] Dr. Josie Allred Chloride [Moles/Vol] 104 mmol/L Normal 98-107 [facility] Comment on above: Performed By: #### L IPID, CMP #### [facility] [address] [place] [address] Dr. Josie Allred CO2 [Moles/Vol] 27.1 mmol/L Normal 22.0-30.0 [facility] Comment on above: Performed By: #### L IPID, CMP #### [facility] [address] [address] [address] Josie Allred Creatinine [Mass/Vol] 0.81 mg/dL Normal 0.52-1.04 [facility] Comment on above: Performed By: #### L IPID, CMP #### [facility] [address] [address] [address] Josie Allred EGFR-AF [place] >60 Normal >=60 [facility] Comment on above: Performed By: #### L IPID, CMP #### [facility] [address] [address] [address] Josie Allred EGFR-NON AF [place] >60 Normal >=60 [facility] Comment on above: Performed By: #### L IPID, CMP #### [facility] [address] [address] [address] Josie Allred Globulin (S) [Mass/Vol] 3.5 g/dL Normal [facility] Comment on above: Performed By: #### L IPID, CMP #### [facility] [address] [place] [address] Dr. Josie Allred Glucose [Mass/Vol] 100 mg/dL Normal 74-106 [facility] Comment on above: Performed By: #### L IPID, CMP #### [facility] [address] [address] [address] Josie Allred Potassium [Moles/Vol] 4.3 mmol/L Normal 3.4-5.0 [facility] Comment on above: Performed By: #### L IPID, CMP #### [facility] [address] [address] [address] Josie Allred Protein [Mass/Vol] 7.4 g/dL Normal 6.1-8.2 [facility] Comment on above: Performed By: #### L IPID, CMP #### [facility] [address] [address] [address] Josie Allred Sodium [Moles/Vol] 139 mmol/L Normal 137-145 [facility] Comment on above: Performed By: #### L IPID, CMP #### [facility] [address] [address] [address] Josie Allred Urea nitrogen [Mass/Vol] 17.0 mg/dL Normal 7.0-17.0 [facility] Comment on above: Performed By: #### L IPID, CMP #### [facility] [address] [address] [address] Josie Allred Urea nitrogen/Creatinin e [Mass ratio] 21.0 mg/mg Normal [facility] Comment on above: Performed By: #### L IPID, CMP #### [facility] [address] [address] [address] Josie Allred POINT OF CARE GLUCOSEon 11-27 Glucose [Mass/Vol] 156 mg/dL Critically high 74-106 [facility] Comment on above: Performed By: #### P OCGLUC #### [facility] [address] [address] [address] Josie Allred Vital Signs Date Time Vital Sign Value Performing Clinician Facility 09-10-2022 10:55-0400 Body height 167.64 cm Indigo Mckeon Other [facility] Other 09-10-2022 10:55-0400 Body mass index (BMI) [Ratio] 24.37 kg/m2 Indigo Mckeon Other [facility] Other 09-10-2022 10:55-0400 Body temperature 97.5 [degF] Indigo Mckeon Other [facility] Other 09-10-2022 10:55-0400 Body weight 68.49 kg Indigo Mckeon Other [facility] Other 09-10-2022 10:55-0400 Diastolic blood pressure 61 mm[Hg] Indigo Mckeon Other [facility] Other 09-10-2022 10:55-0400 Respiratory rate 18 /min Indigo Mckeon Other [facility] Other 09-10-2022 10:55-0400 SaO2% (BldA) [Mass fraction] 99 % Indigo Mckeon Other [facility] Other 09-10-2022 10:55-0400 Systolic blood pressure 117 mm[Hg] Indigo Mckeon Other [facility] Other Encounters Encounter Date Encounter Type Care Provider Facility Start: 06-13-2024 End: 06-13-2024 ambulatory MARYAN JOANNE Not Available Start: 06-02-2024 End: 06-02-2024 ambulatory DIETER JYOTHI Not Available Start: 05-29-2024 End: 05-29-2024 ambulatory MARYAN JOANNE Not Available Start: 04-29-2024 End: 04-29-2024 ambulatory MARYAN JOANNE Not Available Start: 04-09-2024 End: 04-10-2024 ambulatory [facility] Start: 04-09-2024 End: 04-09-2024 ambulatory [facility] Start: 09-10-2022 Office outpatient ne w 20 minutes Indigo Mckeon [facility] Start: 09-10-2022 End: 09-10-2022 ambulatory DO Josef House Work Phone: [facility] Other Start: 09-10-2022 End: 09-10-2022 Departed Referred DO Josef House Work Phone: [facility] [place] Start: 04-11-2022 End: 04-11-2022 ambulatory [facility] Facility:[facility] Start: 04-11-2022 End: 04-11-2022 Patient encounter procedure DO Josef House Work Phone: [facility] Start: 02-01-2022 Encounter for genera l adult medical examination without abnormal findings [facility] Start: 01-28-2022 End: 01-29-2022 Encounter for general adult medical examination without abnormal findings [facility] Facility:[facility] Start: 01-28-2022 End: 01-29-2022 ambulatory [facility] Facility:[facility] Start: 11-09-2017 Encounter for genera l adult medical examination without abnormal findings [facility] Start: 11-01-2017 Encounter for genera l adult medical examination without abnormal findings [facility] Procedures Date Procedure Procedure Detail Performing Clinician Start: 04-11-2022 Plain X-ray of left elbow DO Mopapp Work Phone: Start: 04-11-2022 Plain X-ray of left forearm DO [facility] Work Phone: Plan of Treatment Date Care Activity Detail Author Bacteria identified in Urine by Culture [facility] Payers Date Payer Category Payer Self-pay [id number] 2022 Unknown [id number] 1965 Unknown [id number] 2.16.84 [id number] 1965 Unknown [id number] 2.16.84 [id number] 1965 Unknown [id number] 2.16.8 [id number] 1965 Unknown [id number] 2.16.8 [id number] 1965 Unknown [id number] 2.16.84 [id number] 1965 Unknown [id number] 2.16.84 [id number] 1965 Unknown [id number] 2.16.84 [id number] 1965 Unknown [id number] 2.16.84 [id number] 1959 Unknown [id number] Unknown [id number] 2.16.8 [id number] Unknown [id number] 2.16.8 [id number] Social History Date Type Detail Facility Tobacco smoking status NHIS Unknown if ever smoked [facility] Work Phone: Start: 1965 Sex Assigned At Female F [facility] Sex Assigned At Sex Assigned At Bir th [facility] Other Evaluation note 09-10-2022 Note Date & [...] understanding and is agreeable to treatment plan [facility] Other Evaluation note Note Date & Type Note Facility Evaluation note No assessment information availa ble [facility] Work Phone: Summary Purpose Family [...] DATE CREATED AUTHOR AUTHOR'S ORGANIZ ATION 09/18/2022 [facility] DATE CREATED AUTHOR AUTHOR'S ORGANIZ ATION 07/04/2023 [facility] DATE CREATED AUTHOR AUTHOR'S ORGANIZ ATION 04/10/2024 [facility] DATE CREATED AUTHOR AUTHOR'S ORGANIZ ATION 04/11/2024 [facility] DATE CREATED AUTHOR AUTHOR'S ORGANIZ ATION 06/16/2024 [facility] [employer] Care Teams (unrecognized sec [...] BE BASED ON THE PRIMARY CLINICAL RECORDS. [facility]. provides no warranty or guarantee of the accuracy or completeness of information in this document.
== END 2024-07-02 09:57 | disposition home or self-care (01) ==
LOC: PST 09:57
PROVIDERS: PCP Nurse Practitioner; Visit Provider Obstetrics & Gynecology
DX: Z01.810 Encounter for preprocedural cardiovascular examination (principal); R10.2 Pelvic and perineal pain; N83.201 Unspecified ovarian cyst, right side
CPT/HCPCS: 93005

== ENCOUNTER 2024-07-12 06:13 | Day surgery (SDC) | payer OTHER, SELFPAY ==
[2024-07-02 10:31] VITALS: BP 108/68; PULSE 63; TEMP 36.5; O2SAT 99; BMI 24.3
[2024-07-12] VITALS (10 sets, daily range): BP systolic 88–128; BP diastolic 48–80; PULSE 54–71; TEMP 35.8–36.1; O2SAT 95–99; BMI 33.8
--- OUTSIDE RECORDS SUMMARY | 2024-07-12 06:15 | XMS_ITS | CCD ---
Author Organization [facility] Care Team Providers Care Black Top Paver Operator Name Role Phone PAULETTE MARCELINO Admitting Unavailable PAULETTE MARCELINO Attending Unavailable PAULETTE MARCELINO Consulting Unavailable FUENTES, DR BARBOSA Admitting Unavailable FUENTES, DR BARBOSA Attending Unavailable [place], DR GOLDEN Connell Consulting Unavailable FUENTES, DR [...] ROE Attending Unavailable MARYAN RUBIO Attending Unavailable ANA CINTRON Attending Unavailable Problems Active Problems Problem Classification [...] Reference Range Facility BI MAMMOGRAM SCREENING TOMOS YNTAMMONIS BILATERALon 05-29-2024 BI MAMMOGRAM SCREENING TOMOSYNTHESIS BILATERAL [...] IS VERY IMPORTANT TO YOUR HEALTH. THE [employer] GUIDELINES RECOMMEND THAT WOMEN 40 [...] 24 ABSOLUTE BASOPHIL 0.0 X10E9/L Normal 0.0-0.2 [facility] Comment on above: Performed By: #### C BCA, CMP, FEPR, 85822-9, 3016-3, 2276-4, 2132-07 #### [facility] ([id number]) [address], [address] [address] ABSOLUTE NEUTROPHIL 1.8 X10E9/L Normal 1.5-6.6 [facility] Comment on above: Performed By: #### C BCA, CMP, FEPR, 89062-8, 3016-3, 2275-4, 2132-07 #### [facility] ([id number]) [address] [address] Basophils/100 WBC (Bld) 1.4 % Normal [facility] Comment on above: Performed By: #### C BCA, CMP, FEPR, 29504-8, 3016-3, 6-4, 2132-07 #### [facility] ([id number]) [address], [address] [address] Eosinophils (Bld) [#/Vol] 0.1 10*3/uL Normal 0.0-0.4 [facility] Comment on above: Performed By: #### C BCA, CMP, FEPR, 06045-1, 3016-3, 2276-4, 2132-07 #### [facility] ([id number]) [address] [address] Eosinophils/100 WBC (Bld) 4.2 % Normal [facility] Comment on above: Performed By: #### C BCA, CMP, FEPR, 92641-9, 3016-3, 2276-4, 2132-07 #### [facility] ([id number]) [address], [address] [place] [address] Erythrocyte distribution width (RBC) [Ratio] 13.3 % Normal 11.5-15.0 [facility] Comment on above: Performed By: #### C BCA, CMP, FEPR, 72739-5, 3016-3, 2276-4, 2132-07 #### [facility] ([id number]) [address], [facility] [address] [place] [address] Hematocrit (Bld) [Volume fraction] 35.8 % Normal 35-47 [facility] Comment on above: Performed By: #### C BCA, CMP, FEPR, 06591-2, 3016-3, 6-4, 2132-07 #### [facility] ([id number]) [address] [address] [address] [address] [place] [address] Hemoglobin (Bld) [Mass/Vol] 12.0 g/dL Normal 11.7-15.5 [facility] Comment on above: Performed By: #### C BCA, CMP, FEPR, 44965-9, 3016-3, 6-4, 2132-07 #### [facility] ([id number]) [address] [address] Lymphocytes (Bld) [#/Vol] 1.3 10*3/uL Normal 1.0-3.5 [facility] Comment on above: Performed By: #### C BCA, CMP, FEPR, 60626-1, 3016-3, 2276-4, 2132-07 #### [facility] ([id number]) [address] [address] Lymphocytes/100 WBC (Bld) 35.0 % Normal [facility] Comment on above: Performed By: #### C BCA, CMP, FEPR, 97471-2, 3016-3, 2276-4, 2132-07 #### [facility] ([id number]) [address] [address] [address] [address] [place] [address] MCH (RBC) [Entitic mass] 27.9 pg Normal 27-34 [facility] Comment on above: Performed By: #### C BCA, CMP, FEPR, 84671-7, 3016-3, 6-4, 2132-07 #### [facility] ([id number]) [address], [facility] [address] [place] [address] MCHC (RBC) [Mass/Vol] 33.6 g/dL Normal 32-36 [facility] Comment on above: Performed By: #### C BCA, CMP, FEPR, 31680-6, 3016-3, 2275-4, 2132-07 #### [facility] ([id number]) [address], [address] [address] MCV (RBC) [Entitic vol] 83 fL Normal 80-100 [facility] Comment on above: Performed By: #### C BCA, CMP, FEPR, 93923-2, 3016-3, 2275-4, 2132-07 #### [facility] ([id number]) [address], [facility] [address] [place] [address] Monocytes (Bld) [#/Vol] 0.3 10*3/uL Normal 0-0.9 [facility] Comment on above: Performed By: #### C BCA, CMP, FEPR, 59985-0, 3016-3, 2275-4, 2132-07 #### [facility] ([id number]) [address], [address] [address] Monocytes/100 WBC (Bld) 9.7 % Normal [facility] Comment on above: Performed By: #### C BCA, CMP, FEPR, 24183-1, 3016-3, 6-4, 2132-07 #### [facility] ([id number]) [address], [address] [place] [address] Neutrophils/100 WBC (Bld) 49.7 % Normal [facility] Comment on above: Performed By: #### C BCA, CMP, FEPR, 13270-3, 3016-3, 2276-4, 2132-07 #### [facility] ([id number]) [address], [address] [place] [address] Platelet mean volume (Bld) [Entitic vol] 7.7 fL Normal 7-12 [facility] Comment on above: Performed By: #### C BCA, CMP, FEPR, 71352-4, 3016-3, 2276-4, 2132-07 #### [facility] ([id number]) [address], [address] [place] [address] Platelets (Bld) [#/Vol] 324 10*3/uL Normal 150-450 [facility] Comment on above: Performed By: #### C BCA, CMP, FEPR, 47181-1, 3016-3, 2276-4, 2132-07 #### [facility] ([id number]) [address], [address] [place] [address] RBC COUNT 4.31 X10E12/L Normal 3.80-5.20 [facility] Comment on above: Performed By: #### C BCA, CMP, FEPR, 39514-7, 3016-3, 2276-4, 2132-07 #### [facility] ([id number]) [address], [address] [place] [address] WBC (Bld) [#/Vol] 3.6 10*3/uL Low 4.0-11.0 [facility] Comment on above: Performed By: #### C BCA, CMP, FEPR, 38360-4, 3016-3, 2276-4, 2132-07 #### [facility] ([id number]) [address], [address] [place] [address] COMPREHENSIVE METABOLIC PANE Drew 04-09-2024 Albumin [Mass/Vol] 4.1 g/dL Normal 3.2-5.3 [facility] Comment on above: Performed By: #### C BCA, CMP, FEPR, 40361-4, 3016-3, 2276-4, 2132-07 #### [facility] ([id number]) [address], [address] [place] [address] ALP [Catalytic activity/Vol] 53 U/L Normal 39-130 [facility] Comment on above: Performed By: #### C BCA, CMP, FEPR, 81802-7, 3016-3, 2276-4, 2132-07 #### [facility] ([id number]) [address], [address] [place] [address] ALT [Catalytic activity/Vol] 19 U/L Normal 0-31 [facility] Comment on above: Performed By: #### C BCA, CMP, FEPR, 06579-4, 3016-3, 2276-4, 2132-07 #### [facility] ([id number]) [address], [address] [place] [address] Anion gap [Moles/Vol] 9 mmol/L Normal 5-15 [facility] Comment on above: Performed By: #### C BCA, CMP, FEPR, 27069-0, 3016-3, 2276-4, 2132-07 #### [facility] ([id number]) [address], [address] [place] [address] AST [Catalytic activity/Vol] 22 U/L Normal 0-41 [facility] Comment on above: Performed By: #### C BCA, CMP, FEPR, 85722-7, 3016-3, 2276-4, 2132-07 #### [facility] ([id number]) [address], [address] [place] [address] Bilirubin [Mass/Vol] 0.4 mg/dL Normal 0.3-1.2 [facility] Comment on above: Performed By: #### C BCA, CMP, FEPR, 92394-2, 3016-3, 2276-4, 2132-07 #### [facility] ([id number]) [address], [address] [place] [address] Calcium [Mass/Vol] 9.2 mg/dL Normal 8.5-10.5 [facility] Comment on above: Performed By: #### C BCA, CMP, FEPR, 78104-5, 3016-3, 2276-4, 2132-07 #### [facility] ([id number]) [address], [address] [place] [address] Chloride [Moles/Vol] 106 mmol/L Normal 98-109 [facility] Comment on above: Performed By: #### C BCA, CMP, FEPR, 81104-7, 3016-3, 2275-4, 2132-07 #### [facility] ([id number]) [address], [address] [place] [address] CO2 [Moles/Vol] 25 mmol/L Normal 22-32 [facility] Comment on above: Performed By: #### C BCA, CMP, FEPR, 36860-3, 3016-3, 2276-4, 2132-07 #### [facility] ([id number]) [address], [address] [place] [address] Creatinine [Mass/Vol] 0.67 mg/dL Normal 0.40-1.00 [facility] Comment on above: Result Comment: METH OD TRACEABLE TO IDMS STANDARD Performed By: #### C BCA, CMP, FEPR, 37225-7, 3016-3, 2276-4, 2132-07 #### [facility] ([id number]) [address], [address] [place] [address] eGFR (CKD-EPI) NON-RACE DEPENDENT >90 Normal >59 [facility] Comment on above: Result Comment: Reported eGFR is based on the CKD-EPI 2020 equation that does not use a race coefficient. Performed By: #### C BCA, CMP, FEPR, 98118-8, 3016-3, 2276-4, 2132-07 #### [facility] ([id number]) [address], [address] [place] [address] Glucose [Mass/Vol] 96 mg/dL Normal 65-99 [facility] Comment on above: Performed By: #### C BCA, CMP, FEPR, 65618-3, 3016-3, 6-4, 2132-07 #### [facility] ([id number]) [address], [address] [place] [address] Potassium [Moles/Vol] 4.4 mmol/L Normal 3.5-5.0 [facility] Comment on above: Performed By: #### C BCA, CMP, FEPR, 45398-1, 3016-3, 2275-4, 2132-07 #### [facility] ([id number]) [address], [address] [place] [address] Protein [Mass/Vol] 6.8 g/dL Normal 6.0-8.0 [facility] Comment on above: Performed By: #### C BCA, CMP, FEPR, 59623-0, 3016-3, 6-4, 2132-07 #### [facility] ([id number]) [address], [address] [place] [address] Sodium [Moles/Vol] 140 mmol/L Normal 134-146 [facility] Comment on above: Performed By: #### C BCA, CMP, FEPR, 48518-6, 3016-3, 2276-4, 2132-07 #### [facility] ([id number]) [address], [address] [place] [address] Urea nitrogen [Mass/Vol] 15 mg/dL Normal 5-23 [facility] Comment on above: Performed By: #### C BCA, CMP, FEPR, 09913-0, 3016-3, 2276-4, 2132-07 #### [facility] ([id number]) [address], [address] [place] [address] FERRITINon 04-09-2024 Ferritin [Mass/Vol] 7 ng/mL Low 11-307 [facility] Comment on above: Performed By: #### C BCA, CMP, FEPR, 88019-9, 3016-3, 2276-4, 2132-07 #### [facility] ([id number]) [address], [address] [place] [address] IRON PROFILEon 04-09-2024 Iron [Mass/Vol] 77 ug/dL Normal 50-170 [facility] Comment on above: Performed By: #### C BCA, CMP, FEPR, 59459-0, 3016-3, 2276-4, 2132-07 #### [facility] ([id number]) [address], [address] [place] [address] IRON BINDING 402 ug/dL Normal 250-425 [facility] Comment on above: Performed By: #### C BCA, CMP, FEPR, 59991-1, 3016-3, 2276-4, 2132-07 #### [facility] ([id number]) [address], [address] [place] [address] IRON SATURATION 19 % SATURATION Normal 15-50 [facility] Comment on above: Performed By: #### C BCA, CMP, FEPR, 30364-8, 3016-3, 2276-4, 2131-9 #### [facility] ([id number]) [address], [address] [place] [address] Lipid 1996 panelon Cholesterol [Mass/Vol] 192 mg/dL Normal 150-200 [facility] Comment on above: Performed By: #### C BCA, CMP, FEPR, 49121-4, 3016-3, 2276-, 2132-07 #### [facility] ([id number]) [address], [address] [place] [address] Cholesterol in HDL [Mass/Vol] 96 mg/dL Normal >39 [facility] Comment on above: Result Comment: HDL <40 mg/dL - High Risk HDL > or = 40mg/dL- Desirable HDL >60 mg/dL - Negative Risk Performed By: #### C BCA, CMP, FEPR, 33111-4, 3015-3, 2276-02, 2132-07 #### [facility] ([id number]) [address], [address] [place] [address] Cholesterol in LDL [Mass/Vol] 89 mg/dL Normal <130 [facility] Comment on above: Result Comment: LDL <100 mg/dL - Desirable LDL >160 mg/dL - High Risk Performed By: #### C BCA, CMP, FEPR, 25508-7, 6-3, 2275-, 2132-07 #### [facility] ([id number]) [address], [address] [place] [address] Cholesterol in VLDL [Mass/Vol] 7 mg/dL Normal 0-30 [facility] Comment on above: Performed By: #### C BCA, CMP, FEPR, 86921-8, 3015-3, 2275-4, 2132-07 #### [facility] ([id number]) [address], [address] [place] [address] CHOLESTEROL:HDL 2.0 Normal 1.0-5.0 [facility] Comment on above: Performed By: #### C BCA, CMP, FEPR, 27902-0, 3016-3, 2276-4, 9 #### [facility] ([id number]) [address], [address] [place] [address] Triglyceride [Mass/Vol] 35 mg/dL Normal 27-150 [facility] Comment on above: Performed By: #### C BCA, CMP, FEPR, 70736-9, 3016-3, 2276-4, 9 #### [facility] ([id number]) [address], [address] [place] [address] TSH Qnon 04-09-2024 TSH 2.86 uIU/mL Normal 0.49-4.67 [facility] Comment on above: Performed By: #### C BCA, CMP, FEPR, 54043-4, 3016-3, 2276-4, 9 #### [facility] ([id number]) [address], [address] [place] [address] VITAMIN B12on 04-09-2024 Cobalamin (Vitamin B12) [Mass/Vol] 208 pg/mL Normal 180-914 [facility] Comment on above: Performed By: #### C BCA, CMP, FEPR, 76218-2, 3016-3, 2276-4, 9 #### [facility] ([id number]) [address], [address] [place] [address] IRON AND TOTAL IRON BINDING CAPACITYon 07-04-2023 % SATURATION 22 % (calc) Normal 16-45 [facility] Comment on above: Performed By: #### 7 573 #### [facility] [address] [address] Car Whacker: Emmett Fox MD IRON BINDING CAPACITY 334 mcg/dL (calc) Normal 250-450 [facility] Comment on above: Performed By: #### 7 573 #### [facility] [address] [address] Car Whacker: Emmett Fox MD IRON, TOTAL 73 mcg/dL Normal 45-160 [facility] Comment on above: Performed By: #### 7 573 #### [facility] [address], [address] [place] [address] Car Whacker: Emmett Fox MD Urinalysis - AUTOMATEDon Appearance (U) clear [employer] Other Bilirubin Ql (U) Negative [employer] ast [employer] Other Color (U) yellow [facility] Other Glucose Ql (U) Negative [facility] Other Hemoglobin Ql (U) Negative [facility] [employer] Other Ketones Ql (U) Negative [facility] Other Leukocyte esterase Test strip Ql (U) trace [facility] Other Nitrite Ql (U) Negative [employer] Other pH (U) 6.0 [pH] [facility] Other Protein Ql (U) Negative [employer] Other Specific gravity (U) [Rel density] 1.010 [facility] Other Urobilinogen (U) [Mass/Vol] 0.2 mg/dL [facility] Other Urinalysis - AUTOMATED [facility] Other Urine Cultureon 09-10-2022 Bacteria identified Cx Nom (U) Reason for Exam Dysuria Urine 25,000 colonies/ml mixed bacterial skin contaminants 2 Days PERFORMED BY: [facility] [place] [address] PATHOLOGIST ENERGY AUDIT ADVISOR CHANTAL VALLEJO M.D. Normal [facility] Comment on above: Performed By: #### C UU #### [facility] [address] [place] [address] [facility] XR forearm LT 2V*on 04-11-20 XR forearm LT 2V* [facility] Main [place] [address] [id number] XRay Report Signed Patient: Italia Núñez MR#: [id number] : 1965 Acct:[id number] Age/Sex: 57 / F ADM Date: 04/11/22 Loc: XDCLY Room: Type: [facility] Attending Dr: Paulette FREEMAN Ordering Provider: Paulette FREEMAN Date of Service: 04/11/22 XR/XR forearm LT 2V*: Fall ([id number]) XR/XR elbow LT min 3V*: Fall Copies [...] FRACTURE. Impression dictated by: Steve Ayala Jr., [email or web address]/11/2022 1:38 PM Dictation Location: [place] [address] Transcribed By: [facility] 04/11/22 1338 Dictated By: Steve Ayala Jr, DO 04/11/22 1334 Signed By: 04/11/22 1338 Normal [facility] CBC AUTO DIFFon 01-28-2022 BASO # 0.1 103/ul Normal 0.0-0.1 [facility] Comment on above: Performed By: #### C BC #### [facility] [address] [place] [address] [address] Josie Allred Basophils/100 WBC (Bld) 1.5 % Normal 0.2-2.0 [facility] Comment on above: Performed By: #### C BC #### [facility] [address] [place] [address] Dr. Josie Allred EO # 0.2 103/ul Normal 0.0-0.7 [facility] Comment on above: Performed By: #### C BC #### [facility] [address] [place] [address] Dr. Josie Allred Eosinophils/100 WBC (Bld) 3.8 % Normal 0.9-7.0 [facility] Comment on above: Performed By: #### C BC #### [facility] [address] [place] [address] Dr. Josie Allred Erythrocyte distribution width (RBC) [Ratio] 12.8 % Normal 11.0-15.0 [facility] Comment on above: Performed By: #### C BC #### [facility] [address] [place] [address] Dr. Josie Allred Hematocrit (Bld) [Volume fraction] 37.7 % Normal 36.0-48.0 [facility] Comment on above: Performed By: #### C BC #### [facility] [address] [place] [address] Dr. Josie Allred Hemoglobin (Bld) [Mass/Vol] 12.1 g/dL Normal 12.0-16.0 [facility] Comment on above: Performed By: #### C BC #### [facility] [address] [place] [address] Dr. Josie Allred IG # 0.01 10e3/ul Normal 0.00-0.03 [facility] Comment on above: Performed By: #### C BC #### [facility] [address] [place] [address] Dr. Josie Allred IG % 0.3 % Normal 0.0-0.5 [facility] Comment on above: Performed By: #### C BC #### [facility] [address] [place] [address] Dr. Josie Allred LYMPH # 1.3 103/ul Normal 1.2-3.8 [facility] Comment on above: Performed By: #### C BC #### [facility] [address] [place] [address] Dr. Josie Allred Lymphocytes/100 WBC (Bld) 33.4 % Normal 20.5-60.0 [facility] Comment on above: Performed By: #### C BC #### [facility] [address] [place] [address] Dr. Josie Allred MANUAL DIFF REQ NO Normal [facility] Comment on above: Performed By: #### C BC #### [facility] [address] [place] [address] Dr. Josie Allred MCH (RBC) [Entitic mass] 27.5 pg Normal 26.7-34.0 [facility] Comment on above: Performed By: #### C BC #### [facility] [address] [place] [address] Dr. Josie Allred MCHC (RBC) [Mass/Vol] 32.1 g/dL Normal 29.9-35.2 [facility] Comment on above: Performed By: #### C BC #### [facility] [address] [place] [address] Dr. Josie Allred MCV (RBC) [Entitic vol] 85.7 fL Normal 81.0-99.0 [facility] Comment on above: Performed By: #### C BC #### [facility] [address] [place] [address] Dr. Josie Allred MONO # 0.4 103/ul Normal 0.3-0.8 [facility] Comment on above: Performed By: #### C BC #### [facility] [address] [place] [address] Dr. Josie Allred Monocytes/100 WBC (Bld) 10.1 % Normal 1.7-12.0 [facility] Comment on above: Performed By: #### C BC #### [facility] [address] [place] [address] Dr. Josie Allred NEUT # 2.0 103/ul Normal 1.4-6.5 [facility] Comment on above: Performed By: #### C BC #### [facility] [address] [place] [address] Dr. Josie Allred Neutrophils/100 WBC (Bld) 50.9 % Normal 43.0-75.0 [facility] Comment on above: Performed By: #### C BC #### [facility] [address] [place] [address] Dr. Josie Allred Platelet mean volume (Bld) [Entitic vol] 9.3 fL Critically low 9.5-13.5 [facility] Comment on above: Performed By: #### C BC #### [facility] [address] [place] [address] Dr. Josie Allred PLT 313 103/ul Normal 150-450 [facility] Comment on above: Performed By: #### C BC #### [facility] [address] [place] [address] Dr. Josie Allred RBC 4.40 106/ul Normal 4.20-5.40 [facility] Comment on above: Performed By: #### C BC #### [facility] [address] [place] [address] Dr. Josie Allred WBC 4.0 103/ul Normal 4.0-11.0 [facility] Comment on above: Performed By: #### C BC #### [facility] [address] [place] [address] Dr. Josie Allred IRONon 01-28-2022 Iron [Mass/Vol] 55.0 ug/dL Normal 37.0-170.0 [facility] Comment on above: Performed By: #### I DENNISE #### [facility] [address] [place] [address] Dr. Josie Allred LIPID PROFILEon 01-28-2022 CHOL-HDL RATIO NORM SEE BELOW Normal [facility] Comment on above: Result Comment: 3.3 - 4.4 LOW RISK 4.4 - 7.1 AVERAGE RISK 7.1 - 11.0 MODERATE RISK >11.0 HIGH RISK Performed By: #### L IPID, CMP #### [facility] [address] [place] [address] Dr. Josie Allred Cholesterol [Mass/Vol] 221 mg/dL Critically high <=200 [facility] Comment on above: Performed By: #### L IPID, CMP #### [facility] [address] [place] [address] [address] Josie Allred Cholesterol in HDL [Mass/Vol] 114 mg/dL Normal [facility] Comment on above: Performed By: #### L IPID, CMP #### [facility] [address] [address] [address] Josie Allred Cholesterol in LDL [Mass/Vol] 101.2 mg/dL Normal [facility] Comment on above: Performed By: #### L IPID, CMP #### [facility] [address] [address] [address] Josie Allred Cholesterol.total/ Cholesterol in HDL [Mass ratio] 1.9 {ratio} Normal [facility] Comment on above: Performed By: #### L IPID, CMP #### [facility] [address] [address] [address] Josie Allred HDL NORMAL > or = 60 mg/dl - LOW CARDIOVASCULAR RISK <40 mg/dl - HIGH CARDIOVASCULAR RISK Normal [facility] Comment on above: Performed By: #### L IPID, CMP #### [facility] [address] [address] [address] Josie Allred LDL CALC NORMAL SEE BELOW Normal [facility] Comment on above: Result Comment: <100 mg/dl OPTIMAL 100 - 129 mg/dl NEAR OR ABOVE OPTIMAL 130 - 159 mg/dl BORDERLINE HIGH 160 - 189 mg/dl HIGH >190 mg/dl VERY HIGH Performed By: #### L IPID, CMP #### [facility] [address] [address] [address] Josie Allred Triglyceride [Mass/Vol] 29 mg/dL Normal <=150 [facility] Comment on above: Performed By: #### L IPID, CMP #### [facility] [address] [address] [address] Josie Allred VLDL CALC 5.8 mg/dL Normal [facility] Comment on above: Performed By: #### L IPID, CMP #### [facility] [address] [address] [address] Josie Allred MG MAMM SCREEN 3D АЛЕКСАНДР CADon 01-28-2022 MG MAMM SCREEN 3D АЛЕКСАНДР CAD Patient: ITALIA NÚÑEZ Exam Date: 01/28/2022 : 1965 Gender:F Ordering : DR CEHLSEY DILL Admission #: [id number] Family : Order #: [id number] CLICK HERE TO VIEW EXAM RADIOLOGY REPORT [...] colon cancer at age 79. LOCATION: [facility] BREAST COMPOSITION: Heterogeneously dense,which may obscure small [...] Randolph MD on 01/28/2022 at 08:07 Normal [facility] PROF 14(COMP METB)on 022 Albumin [Mass/Vol] 3.9 g/dL Normal 3.5-5.0 [facility] Comment on above: Performed By: #### L NEMESIO LOUISE #### [facility] [address] [address] [address] Josie Allred Albumin/Globulin [Mass ratio] 1.1 {ratio} Normal [facility] Comment on above: Performed By: #### L NEMESIO LOUISE #### [facility] [address] [address] [address] Josie Allred ALP [Catalytic activity/Vol] 56 U/L Normal 38-126 [facility] Comment on above: Performed By: #### L IPID, CMP #### [facility] [address] [address] [address] Josie Allred ALT [Catalytic activity/Vol] 25 U/L Normal 9-52 [facility] Comment on above: Performed By: #### L IPID, CMP #### [facility] [address] [address] [address] Josie Allred Anion gap [Moles/Vol] 12.2 mmol/L Normal [facility] Comment on above: Performed By: #### L IPID, CMP #### [facility] [address] [place] [address] Dr. Josie Allred AST [Catalytic activity/Vol] 21 U/L Normal 14-36 [facility] Comment on above: Performed By: #### L IPID, CMP #### [facility] [address] [place] [address] Dr. Josie Allred Bilirubin [Mass/Vol] 0.3 mg/dL Normal 0.2-1.3 [facility] Comment on above: Performed By: #### L IPID, CMP #### [facility] [address] [place] [address] Dr. Josie Allred Calcium [Mass/Vol] 8.8 mg/dL Normal 8.4-10.2 [facility] Comment on above: Performed By: #### L IPID, CMP #### [facility] [address] [place] [address] Dr. Josie Allred Chloride [Moles/Vol] 104 mmol/L Normal 98-107 [facility] Comment on above: Performed By: #### L IPID, CMP #### [facility] [address] [place] [address] Dr. Josie Allred CO2 [Moles/Vol] 27.1 mmol/L Normal 22.0-30.0 [facility] Comment on above: Performed By: #### L IPID, CMP #### [facility] [address] [address] [address] Josie Allred Creatinine [Mass/Vol] 0.81 mg/dL Normal 0.52-1.04 [facility] Comment on above: Performed By: #### L IPID, CMP #### [facility] [address] [address] [address] Josie Allred EGFR-AF AUSTRALIAN >60 Normal >=60 [facility] Comment on above: Performed By: #### L IPID, CMP #### [facility] [address] [address] [address] Josie Allred EGFR-NON AF AUSTRALIAN >60 Normal >=60 [facility] Comment on above: Performed By: #### L IPID, CMP #### [facility] [address] [address] [address] Josie Allred Globulin (S) [Mass/Vol] 3.5 g/dL Normal [facility] Comment on above: Performed By: #### L IPID, CMP #### [facility] [address] [address] [address] Josie Allred Glucose [Mass/Vol] 100 mg/dL Normal 74-106 [facility] Comment on above: Performed By: #### L IPID, CMP #### [facility] [address] [address] [address] Josie Allred Potassium [Moles/Vol] 4.3 mmol/L Normal 3.4-5.0 [facility] Comment on above: Performed By: #### L IPID, CMP #### [facility] [address] [place] [address] Dr. Josie Allred Protein [Mass/Vol] 7.4 g/dL Normal 6.1-8.2 [facility] Comment on above: Performed By: #### L IPID, CMP #### [facility] [address] [place] [address] Dr. Josie Allred Sodium [Moles/Vol] 139 mmol/L Normal 137-145 [facility] Comment on above: Performed By: #### L IPID, CMP #### [facility] [address] [address] [address] Josie Allred Urea nitrogen [Mass/Vol] 17.0 mg/dL Normal 7.0-17.0 [facility] Comment on above: Performed By: #### L IPID, CMP #### [facility] [address] [address] [address] Josie Allred Urea nitrogen/Creatinin e [Mass ratio] 21.0 mg/mg Normal [facility] Comment on above: Performed By: #### L IPID, CMP #### [facility] [address] [address] [address] Josie Allred POINT OF CARE GLUCOSEon 11-27 Glucose [Mass/Vol] 156 mg/dL Critically high 74-106 [facility] Comment on above: Performed By: #### P OCGLUC #### [facility] [address] [address] [address] Josie Allred Vital Signs Date Time Vital Sign Value Performing Clinician Facility 09-10-2022 10:55-0400 Body height 167.64 cm Indigo Mckeon Other [facility] Other 09-10-2022 10:55-0400 Body mass index (BMI) [Ratio] 24.37 kg/m2 Indigo Mckeon Other [facility] Other 09-10-2022 10:55-0400 Body temperature 97.5 [degF] Indigo Mckeon Other [facility] Other 09-10-2022 10:55-0400 Body weight 68.49 kg Indigo Mckeon Other [facility] Other 09-10-2022 10:55-0400 Diastolic blood pressure 61 mm[Hg] Indigo Mckeon Other [facility] Other 09-10-2022 10:55-0400 Respiratory rate 18 /min Indigo Mckeon Other [facility] Other 09-10-2022 10:55-0400 SaO2% (BldA) [Mass fraction] 99 % Indigo Mckeon Other [facility] Other 09-10-2022 10:55-0400 Systolic blood pressure 117 mm[Hg] Indigo Mckeon Other [facility] Other Encounters Encounter Date Encounter Type Care Provider Facility Start: 07-01-2024 End: 07-01-2024 ambulatory ANA SAIDA Not Available Start: 06-13-2024 End: 06-13-2024 ambulatory MARYAN JOANNE Not Available Start: 06-02-2024 End: 06-02-2024 ambulatory DIETER JYOTHI Not Available Start: 05-29-2024 End: 05-29-2024 ambulatory MARYAN JOANNE Not Available Start: 04-29-2024 End: 04-29-2024 ambulatory MARYAN JOANNE Not Available Start: 04-09-2024 End: 04-10-2024 ambulatory [facility] Start: 04-09-2024 End: 04-09-2024 ambulatory [facility] Start: 09-10-2022 Office outpatient ne w 20 minutes Indigo Mckeon [facility] Start: 09-10-2022 End: 09-10-2022 ambulatory DO Josef House Work Phone: [facility] Other Start: 09-10-2022 End: 09-10-2022 Departed Referred DO Josef House Work Phone: [facility] [place] Start: 04-11-2022 End: 04-11-2022 ambulatory Paulette [facility] Facility:[facility] Start: 04-11-2022 End: 04-11-2022 Patient encounter procedure DO Josef House Work Phone: [facility] Start: 02-01-2022 Encounter for genera l adult medical examination without abnormal findings PAULETTE MARCELINO [facility] Start: 01-28-2022 End: 01-29-2022 Encounter for general adult medical examination without abnormal findings PAULETTE THOMASILLO Facility:[facility] Start: 01-28-2022 End: 01-29-2022 ambulatory [facility] Facility:[facility] Start: 11-09-2017 Encounter for genera l adult medical examination without abnormal findings [facility] Start: 11-01-2017 Encounter for genera l adult medical examination without abnormal findings [facility] Procedures Date Procedure Procedure Detail Performing Clinician Start: 04-11-2022 Plain X-ray of left elbow DO [facility] Work Phone: Start: 04-11-2022 Plain X-ray of left forearm DO [facility] Work Phone: Plan of Treatment Date Care Activity Detail Author Bacteria identified in Urine by Culture [facility] Payers Date Payer Category Payer Self-pay [id number] 2022 Unknown [id number] 1965 Unknown [id number] 2.16.84 [id number] 1965 Unknown [id number] 2.16.84 [id number] 1965 Unknown [id number] 2.16.8 [id number] 1965 Unknown [id number] 2.16.8 [id number] 1965 Unknown [id number] 2.16.84 [id number] 1965 Unknown [id number] 2.16.84 [id number] 1965 Unknown [id number] 2.16.84 [id number] 1965 Unknown [id number] 2.16.84 [id number] 1965 Unknown [id number] 2.16.84 [id number] 1959 Unknown [id number] Unknown [id number] 2.16.8 [id number] Unknown [id number] 2.16.8 [id number] Social History Date Type Detail Facility Tobacco smoking status KSIS Unknown if ever smoked [facility] Work Phone: Start: 1965 Sex Assigned At Female F [facility] Sex Assigned At Sex Assigned At Bir th [facility] Other Evaluation note 09-10-2022 Note Date & [...] understanding and is agreeable to treatment plan [facility] Other Evaluation note Note Date & Type Note Facility Evaluation note No assessment information availa ble [facility] Work Phone: Summary Purpose Family History [...] content) DATE CREATED AUTHOR 02/03/2022 [facility] DATE CREATED AUTHOR AUTHOR'S ORGANIZ ATION 09/18/2022 [facility] DATE CREATED AUTHOR AUTHOR'S ORGANIZ ATION 07/04/2023 [facility] DATE CREATED AUTHOR AUTHOR'S ORGANIZ ATION 04/10/2024 [facility] DATE CREATED AUTHOR AUTHOR'S ORGANIZ ATION 04/11/2024 [facility] DATE CREATED AUTHOR AUTHOR'S ORGANIZ ATION 07/02/2024 [facility] [employer] Care Teams (unrecognized sec tion and content) Team Status: Inactive Member Role Status Dates Josef Portillo , Primary Care Provider Active LYDIA Fish Attending [...] BE BASED ON THE PRIMARY CLINICAL RECORDS. [employer] provides no warranty or guarantee of the accuracy or completeness of information in this document.
[2024-07-12 06:41] LABS: Basophils Absolute Auto 0.1 10^3/uL (0.0-0.1); Basophils Percent Auto 1.1 % (0.2-2.0); Eosinophils Absolute Auto 0.2 10^3/uL (0.0-0.7); Eosinophils Percent Auto 3.4 % (0.9-7.0); Hematocrit 35.4 % (36.0-48.0); Hemoglobin 11.5 g/dL (12.0-16.0); Immature Granulocytes Abs Auto 0.01 10^3/uL (0.00-0.03); Immature Granulocytes Pct Auto 0.2 % (0.0-0.5); Lymphocytes Absolute Auto 1.7 10^3/uL (1.2-3.8); Lymphocytes Percent Auto 37.3 % (20.5-60.0); Mean Corpuscular HGB Conc 32.5 g/dL (29.9-35.2); Mean Corpuscular Hemoglobin 27.4 pg (26.7-34.0); Mean Corpuscular Volume 84.3 fL (81.0-99.0); Monocytes Absolute Auto 0.5 10^3/uL (0.3-0.8); Monocytes Percent Auto 11.1 % (1.7-12.0); Neutrophils Absolute Auto 2.1 10^3/uL (1.4-6.5); Neutrophils Percent Auto 46.9 % (43.0-75.0); Platelet Count 366 10^3/uL (150-450); Red Cell Distribution Width 12.3 % (11.0-15.0); White Blood Count 4.4 10^3/uL (4.0-11.0)
[2024-07-12] MEDS: LACTATED RINGER'S SOLUTION 1,000 ML 50 ML IV (07:26)
--- NOTE | 2024-07-12 08:54 | PM.ONB ---
Brief Operative Note Date of procedure: 07/12/24 Pre-op diagnosis general: pelvic pain, rt ovarian cyst Post-op diagnosis: other (rt ovarian cyst with torsion) Procedure: NAME OF PROCEDURE: robotic assisted Laparoscopic rt oopherectomy PROCEDURE: A wet sponge stick was placed into the patient's vagina. Attention was then turned to the patient's abdomen, where a scalpel was used to make a small infraumbilical incision. The S retractors were then used to dissect the underlying layers until the fascia could be seen. The fascia was then grasped with Festus clamps and tented up. A knife was then used to make a small incision to the fascia. The muscle was identified, at that time two sutures of #0 Vicryl on a GI needlewas then used and placed through the fascia. The peritoneum was then identified and entered bluntly. The 10-4 Raghav was then placed into the patient's abdomen. This was confirmed with direct visualization of the bowel, using the laparoscope. The patient's abdomen was then insufflated using approximately 4 liters of CO2 gas. Survey of the patient's abdomen demonstrated normal appearing ovaries, uterus and tubes. A second and third lateral robotic ports, which was 8mm in size, was then placed laterally after incision was made in the skin under direct visualization. the robotic arms were engaged. The patient's rt ovary was identified with a 5cm simple appearing ovarian cyst with torsion, i could not identify the lt ovary, there was absent tube and uterus, multiple adhesions of bowel to anterior abdominal wall. The vessel sealer was used to grasp and remove the rt ovary, rt ovary and fluid was sent off to pathology. the endocatch was used to remove the rt ovary. ? Excellent hemostasis was noted. ?The lateral ports were then moved under direct visualization with excellent hemostasis. The abdomen was deinsufflated. All instruments were removed from the patient's abdomen. The fascia was closed using the #0 Vicryl on GI needle. The skin was closed using 4-0 Vicryl subcuticularly. All instruments were removed from the patient's vagina as well. The patient was taken out of the dorsal lithotomy position and placed in the supine position and taken to recovery in stable condition. Sponge, lap and needle counts were correct x2. ??? Anesthesia: VITO Surgeon: Harvey Zimmer [employer] Room Operator: Josefina Torres Estimated blood loss (mL): 5 Pathology: other (rt ovary) Condition: stable Disposition: PACU
[2024-07-12] MEDS: LACTATED RINGER'S SOLUTION 1,000 ML 150 ML IV (09:34)
--- NOTE | 2024-07-12 09:44 | PC.NURSE ---
IV restarted in OR in right anticub and IV DC'D IN RIGHT WRIST
--- NOTE | 2024-07-12 10:32 | PC.NURSE ---
Peripad dry; denies urge to void at this time.
--- NOTE | 2024-07-12 11:44 | PC.NURSE ---
Up to bathroom and voids clear yellow without difficulty
== END 2024-07-12 11:35 | disposition home or self-care (01) ==
PROVIDERS: PCP Nurse Practitioner; Visit Provider Obstetrics & Gynecology
PROC: (CPT 840; principal; 2024-07-12 07:30)
DX: R10.2 Pelvic and perineal pain (principal); N83.201 Unspecified ovarian cyst, right side; Z90.711 Acquired absence of uterus with remaining cervical stump; Z90.49 Acquired absence of other specified parts of digestive tract; Z87.891 Personal history of nicotine dependence
CPT/HCPCS: 58661; 36415; 85025; 88112; J1100; J1885; J2250; J2405; J2704; J2710; J3010

== ENCOUNTER 2025-07-14 19:23 | Outpatient (REF) | payer OTHER, BC, SELFPAY ==
--- OUTSIDE RECORDS SUMMARY | 2025-07-14 19:31 | XMS_ITS | CCD ---
Author Organization [facility] Care Team Providers Care Road Traffic Controller Name Role Phone PAULETTE MARCELINO Admitting Unavailable PAULETTE MARCELINO Attending Unavailable PAULETTE MARCELINO Consulting Unavailable FUENTES, DR BARBOSA Admitting Unavailable FUENTES, DR BARBOSA Attending Unavailable TRISTAN, DR GOLDEN Connell Consulting Unavailable FUENTES, DR BARBOSA Consulting Unavailable DO Josef Portillo Primary Care Provider LYDIA Marcelino Attending Provider [phone] Indigo Mckeon Unavailable DO Josef Portillo Primary Care Provider YUE Mckeon Attending Provider PAULETTE MARCELINO Referring Unavailable PAULETTE MARCELINO Primary Care Unavailable MARYAN ZIMMER Attending Unavailable MARYAN ZIMMER Referring Unavailable DIETER ROE Attending Unavailable MARYAN ZIMMER Attending Unavailable MARIAN CINTRON Attending Unavailable DO Maryan Zimmer Attending Provider Cristy Ricardo MD Primary Care Provider Ryland TURNER-Paulette SANTIAGO Primary Care Provid er Ryland TURNER-Paulette SANTIAGO Primary Care Provid er PAULETTE MARCELINO Attending Unavailable PAULETTE MARCELINO Referring Unavailable PAULETTE MARCELINO Primary Care Unavailable Evangelista Annika TURNER Attending Provider NO FAMILY, PHYSICIAN Primary Care Provider Unava ilable Evangelista Annika TURNER Attending Provider [phone] Maryan Zimmer Attending Unavailable Maryan Zimmer Admitting Unavailable NON STAFF Primary Care Unavailable Annika Naidu Attending Unavailable Annika Naidu Admitting Unavailable Medications Current Medications Medication Drug Class(es) Dates Sig (Normalized) Sig (Original) acetaminophen 325 mg oral tablet (6 sources) acetaminophen (T ylenol) 325 MG tablet every 4 (four) hours Active ascorbic acid 500 mg chewable tablet (15 sources) Vitamin C ascorbic acid (V itamin C) 500 MG tablet Active ascorbic acid (V itamin C) 100 MG chewable tablet Vitamin C Active ascorbic acid (V ITAMIN C) 500 mg tablet Active End: 04-09-2024 ascorbic acid, vitamin C, (v itamin C) 100 MG tablet Vitamin C 04/09/2024 Discontinued (Therapy completed) ascorbic acid 60 mg / cholecalciferol 0.01 mg / folic acid 0.3 mg / niacin 13.5 mg / riboflavin 1.2 mg / sodium fluoride 0.55 mg / thiamine 1.05 mg / vitamin a 0.75 mg / vitamin b12 0.0045 mg / vitamin b6 1.05 mg / vitamin e 6.75 mg chewable tablet (6 sources) Nicotinic Acid, Vitamin A, Vitamin B12, Vitamin D, Vitamin C Pediatric Multivitamins-Fl (MultiVitamin + Fluoride) 0.25 MG chewable tablet Multivitamin Active b complex vitamins capsule (6 sources) take 1 capsule by mouth once daily b complex vitamins capsule Take 1 capsule by mouth Daily Active bacillus coagulans [id number] unt / inulin 250 mg oral capsule (6 sources) Bacillus Coagulans-Inulin (Probiotic) 1-250 BILLION-MG capsule Probiotic Active calcium carb-vitamin D3-vit K2 600 mg-1,000 unit-90 mcg tablet (1 source) End: calcium carb-vitamin D3-vit K2 600 mg-1,000 unit-90 mcg tablet Vitamin D3 1000 04/09/2024 Discontinued (Therapy completed) cholecalciferol 0.025 mg oral capsule (6 sources) Vitamin D Cholecalciferol (Vitamin D3) 1000 units capsule Vitamin D3 1000 Active diclofenac sodium 50 mg delayed release oral tablet (6 sources) Nonsteroidal Anti-inflammatory Drug Start: take 1 tablet by mouth every twelve hours for pain diclofenac (Voltaren) 50 MG EC tablet take 1 tablet by mouth every 12 hours if needed for pain 04/23/2024 Active ergocalciferol, vitamin D2, (VITAMIN D2 ORAL) (1 source) End: ergocalciferol, vitamin D2, (VITAMIN D2 ORAL) 04/09/2024 Discontinued (Therapy completed) ferrous sulfate 325 mg delayed release oral tablet (8 sources) Start: take 1 tablet by mouth in the morning, then take 1 tablet by mouth at mealtime ferrous sulfate 325 (65 FE) mg EC tablet Indications: Other iron deficiency anemia Take 1 tablet (325 mg total) by mouth in the morning and 1 tablet (325 mg total) in the evening. Take with meals. 60 tablet 1 03/30/2023 Active ferrous sulfate 325 (65 Fe) MG tablet 1 (one) time each day at the same time Active ibuprofen 800 mg oral tablet (2 sources) Nonsteroidal Anti-inflammatory Drug Start: 04-11-2022 take 1 tablet by mouth every eight hours as needed for pain ibuprofen (ADVIL,MOTRIN) 800 mg tablet Indications: Left forearm pain , Elbow pain, left Take 1 tablet (800 mg total) by mouth every 8 (eight) hours as needed for pain. Take with food 30 tablet 04/11/2022 Active MAGNESIUM 4 MUSCLES (6 sources) MAGNESIUM 4 MUSC LES Magnesium Active magnesium oxide 200 mg magnesium tablet,chewable (2 sources) magnesium oxide 200 mg magnesium tablet,chewable Magnesium Active phenazopyridine hydrochloride 200 mg oral tablet (1 source) Start: 05-03-2023 End: 04-09-2024 take 1 tablet by mouth three times daily as needed for muscle spasms phenazopyridine (PYRIDIUM) 200 mg tablet Indications: Acute cystitis without hematuria Take 1 tablet (200 mg total) by mouth 3 (three) times a day as needed for bladder spasms. 15 tablet 05/03/2023 04/09/2024 Discontinued (Therapy completed) Completed/Discontinued Medications Medication Drug Class(es) Dates Sig (Normalized) Sig (Original) cyclobenzaprine hydrochloride 5 mg oral tablet (3 sources) Muscle Relaxant Start: 04-23-2024 End: 07-25-2024 take 1 tablet by mouth twice daily for muscle spasms cyclobenzaprine (Flexeril) 5 MG tablet take 1 tablet by mouth twice a day for muscle spasm 04/23/2024 07/25/2024 Discontinued Problems Active Problems Problem Classification Problem Date Documented Date Episodic/Chronic Abdominal pain (2 sources) Flank pain; Translations: [Unspecified abdominal pain] 06-18-2025 Episodic Deficiency and other anemia (1 source) Iron deficiency anemia, unspecified; Translations: [IRON DEFICIENCY ANEMIA UNSPECIFIED] Onset: 02-01-2022 Episodic Deficiency and other anemia (4 sources) Iron deficiency anemia; Translations: [Other iron deficiency anemias] Onset: 11-09-2017 04-09-2024 Episodic Genitourinary symptoms and ill-defined conditions (4 sources) Dysuria; Translations: [Dysuria] Onset: 06-18-2025 Episodic Other screening for suspected conditions (not mental disorders or infectious disease) (7 sources) Encounter for screening mammogram for malignant neoplasm of breast; Translations: [Patient encounter status] Onset: 01-28-2022 Episodic Residual codes; unclassified (1 source) Family history of malignant neoplasm of digestive organs; Translations: [FAM HX MALIG NEOPLASM DIGESTIV ORGN] Onset: 02-01-2022 Episodic Residual codes; unclassified (1 source) Family history of other malignant neoplasms of lymphoid, hematopoietic and related tissues; Translations: [FAM HX OTH MAL DUGLAS LYMPH HEMATPOETC] Onset: 02-01-2022 Episodic Residual codes; unclassified (2 sources) Postmenopausal state; Translations: [Asymptomatic menopausal state] 07-14-2025 Episodic Unclassified (1 source) Annual Exam Onset: 04-15-2025 Past or Other Problems Problem Classification Problem Date Documented Da te Episodic/Chronic Deficiency and other anemia (2 sources) Other iron deficiency anemias; Translations: [Other iron deficiency anemias] Onset: 11-01-2017 Episodic Deficiency and other anemia (2 sources) Anemia; Translations: [Anemia, unspecified] Onset: 11-01-2017 11-01-2017 Episodic Mood disorders (2 sources) Mood disorders Onset: 04-09-2024 Resolved: 04-15-2025 04-09-2024 Nutritional deficiencies (2 sources) Cobalamin deficiency; Translations: [Deficiency of other specified B group vitamins] Onset: 11-01-2017 11-01-2017 Episodic Other aftercare (2 sources) Surgical follow-up; Translations: [Encounter for follow-up examination after completed treatment for conditions other than malignant neoplasm] 07-25-2024 Episodic Sprains and strains (2 sources) Strain of muscle of right shoulder; Translations: [Strain of unspecified muscle, fascia and tendon at shoulder and upper arm level, right arm, initial encounter] Onset: 11-01-2017 11-01-2017 Episodic Unclassified (2 sources) Onset: 04-09-2024 04-09-2024 Results Test Name Value Interpretation Reference Range Facility Urine Cultureon 06-18-2025 Bacteria identified Cx Nom (U) <9,000 colonies/ml mixed bacterial skin contaminants 2 Days PERFORMED BY: [facility] [address] [place] [address] PATHOLOGIST [employer]ANGING [employer]ER[employer] DIRECTOR JAYLEEN BA M.D. Normal [facility] Comment on above: Performed By: #### C UU #### [address] CBC WITH AUTO DIFFERENTIALon 04-15-2025 BASOPHILS ABSOLUTE COUNT (10*3/UL) BY AUTOMATED COUNT 0.1 10*3/uL Normal 0.0-0.2 [facility] Comment on above: Performed By: #### C BCA #### [facility] ([facility]) [address] [place] [address] VIR BASOPHILS RELATIVE PERCENT BY AUTOMATED COUNT 1.4 % Normal [facility] Comment on above: Performed By: #### C BCA #### [facility] ([facility]) [address] [place] [address] VIR CELLAVISION DIFFERENTIAL TYPE AUTOMATED DIFFERENTIAL Normal [facility] Comment on above: Performed By: #### C BCA #### [facility] ([facility]) [address] [place] [address] VIR Eosinophils (Bld) [#/Vol] 0.1 10*3/uL Normal 0.0-0.4 [facility] Comment on above: Performed By: #### C BCA #### [facility] ([facility]) [address] [place] [address] VIR EOSINOPHILS RELATIVE PERCENT BY AUTOMATED COUNT 3.0 % Normal [facility] Comment on above: Performed By: #### C BCA #### [facility] ([facility]) [address] [place] [address] VIR Erythrocyte distribution width (RBC) [Ratio] 13.4 % Normal 11.5-15 [facility] Comment on above: Performed By: #### C BCA #### [facility] ([facility]) [address] [place] [address] VIR Hematocrit (Bld) [Volume fraction] 37.2 % Normal 35-47 [facility] Comment on above: Performed By: #### C BCA #### [facility] ([facility]) [address] [place] [address] VIR Hemoglobin (Bld) [Mass/Vol] 12.6 g/dL Normal 11.7-15.5 [facility] Comment on above: Performed By: #### C BCA #### [facility] ([facility]) [address] [place] [address] VIR LYMPHOCYTES ABSOLUTE COUNT (10*3/UL) BY AUTOMATED COUNT 1.4 10*3/uL Normal 1.0-3.5 [facility] Comment on above: Performed By: #### C BCA #### [facility] ([facility]) [address] [place] [address] VIR LYMPHOCYTES RELATIVE PERCENT BY AUTOMATED COUNT 39.0 % Normal [facility] Comment on above: Performed By: #### C BCA #### [facility] ([facility]) [address] [place] [address] VIR MCH (RBC) [Entitic mass] 27.9 pg Normal 27-34 [facility] Comment on above: Performed By: #### C BCA #### [facility] ([facility]) [address] [place] [address] VIR MCHC (RBC) [Mass/Vol] 33.7 g/dL Normal 32-36 [facility] Comment on above: Performed By: #### C BCA #### [facility] ([facility]) [address] [place] [address] VIR MCV (RBC) [Entitic vol] 83 fL Normal 80-100 [facility] Comment on above: Performed By: #### C BCA #### [facility] ([facility]) [address] [place] [address] VIR MONOCYTES ABSOLUTE COUNT (10*3/UL) BY AUTOMATED COUNT 0.3 10*3/uL Normal 0.0-0.9 [facility] Comment on above: Performed By: #### C BCA #### [facility] ([facility]) [address] [place] [address] VIR MONOCYTES RELATIVE PERCENT BY AUTOMATED COUNT 8.1 % Normal [facility] Comment on above: Performed By: #### C BCA #### [facility] ([facility]) [address] [place] [address] VIR NEUTROPHILS ABSOLUTE COUNT BY AUTOMATED COUNT 1.8 10*3/uL Normal 1.5-6.6 [facility] Comment on above: Performed By: #### C BCA #### [facility] ([facility]) [address] [place] [address] VIR NEUTROPHILS RELATIVE PERCENT BY AUTOMATED COUNT 48.5 % Normal [facility] Comment on above: Performed By: #### C BCA #### [facility] ([facility]) [address] [place] [address] VIR Platelet mean volume (Bld) [Entitic vol] 7.8 fL Normal 7-12 [facility] Comment on above: Performed By: #### C BCA #### [facility] ([facility]) [address] [place] [address] VIR Platelets (Bld) [#/Vol] 357 10*3/uL Normal 150-450 [facility] Comment on above: Performed By: #### C BCA #### [facility] ([facility]) [address] [place] [address] VIR RBC COUNT 4.51 X10E12/L Normal 3.8-5.2 [facility] Comment on above: Performed By: #### C BCA #### [facility] ([facility]) [address] [place] [address] VIR WBC (Bld) [#/Vol] 3.7 10*3/uL Low 4-11 [facility] Comment on above: Performed By: #### C BCA #### [facility] ([facility]) [address] [place] [address] VIR COMPREHENSIVE METABOLIC PANE Drew 04-15-2025 Albumin [Mass/Vol] 4.4 g/dL Normal 3.2-5.3 [facility] Comment on above: Performed By: #### C MP #### [facility] ([facility]) [address] [place] [address] VIR ALP [Catalytic activity/Vol] 47 U/L Normal 39-130 [facility] Comment on above: Performed By: #### C MP #### [facility] ([facility]) [address] [place] [address] VIR ALT [Catalytic activity/Vol] 18 U/L Normal <=31 [facility] Comment on above: Performed By: #### C MP #### [facility] ([facility]) [address] [place] [address] VIR Anion gap [Moles/Vol] 9 mmol/L Normal 5-15 [facility] Comment on above: Performed By: #### C MP #### [facility] ([facility]) [address] [place] [address] VIR AST [Catalytic activity/Vol] 26 U/L Normal <=41 [facility] Comment on above: Performed By: #### C MP #### [facility] ([facility]) [address] [place] [address] VIR Bilirubin [Mass/Vol] 0.5 mg/dL Normal 0.3-1.2 [facility] Comment on above: Performed By: #### C MP #### [facility] ([facility]) [address] [place] [address] VIR Calcium [Mass/Vol] 9.4 mg/dL Normal 8.5-10.5 [facility] Comment on above: Performed By: #### C MP #### [facility] ([facility]) [address] [place] [address] VIR Chloride [Moles/Vol] 104 mmol/L Normal 98-109 [facility] Comment on above: Performed By: #### C MP #### [facility] ([facility]) [address] [place] [address] VIR CO2 [Moles/Vol] 25 mmol/L Normal 22-32 [facility] Comment on above: Performed By: #### C MP #### [facility] ([facility]) [address] [place] [address] VIR Creatinine [Mass/Vol] 0.70 mg/dL Normal 0.40-1.00 [facility] Comment on above: Result Comment: METH OD TRACEABLE TO IDMS STANDARD Performed By: #### C MP #### [facility] ([facility]) [address] [place] [address] VIR EGFR (CKD-EPI) NON-RACE DEPENDENT >^90 Normal >=60 [facility] Comment on above: Result Comment: Repo rted eGFR is based on the CKD-EPI 2020 equation that does not use a race coefficient. Performed By: #### C MP #### [facility] ([facility]) [address] [place] [address] VIR Glucose [Mass/Vol] 103 mg/dL High 65-99 [facility] Comment on above: Performed By: #### C MP #### [facility] ([facility]) [address] [place] [address] VIR Potassium [Moles/Vol] 4.2 mmol/L Normal 3.5-5.0 [facility] Comment on above: Performed By: #### C MP #### [facility] ([facility]) [address] [place] [address] VIR Protein [Mass/Vol] 7.0 g/dL Normal 6.0-8.0 [facility] Comment on above: Performed By: #### C MP #### [facility] ([facility]) [address] [place] [address] VIR Sodium [Moles/Vol] 138 mmol/L Normal 134-146 [facility] Comment on above: Performed By: #### C MP #### [facility] ([facility]) [address] [place] [address] VIR Urea nitrogen [Mass/Vol] 14 mg/dL Normal 5-23 [facility] Comment on above: Performed By: #### C MP #### [facility] ([facility]) [address] [place] [address] VIR FERRITINon 04-15-2025 Ferritin [Mass/Vol] 9 ng/mL Low 11-307 [facility] Comment on above: Performed By: #### F ERR #### [facility] ([facility]) [address] [place] [address] VIR HEMOGLOBIN A1Con 04-15-2025 Glucose [Mass/Vol] 120 mg/dL Normal [facility] Comment on above: Performed By: #### H A1C #### [facility] ([facility]) [address] [place] [address] VIR HbA1c (Bld) [Mass fraction] 5.8 % High 4.4-5.6 [facility] Comment on above: Result Comment: ADA Guidelines Result HgbA1c Normal : less than 5.7 % Prediabetes : 5.7 % to 6.4 % Diabetes : > 6.4 % Use with caution in patients with abnormal hemoglobin variants as the half-life of red blood cells and in vivo glycation rates are affected. Performed By: #### H A1C #### [facility] ([facility]) [address] [place] [address] VIR IRON AND TIBCon 04-15-2025 Iron [Mass/Vol] 110 ug/dL Normal 50-170 [facility] Comment on above: Performed By: #### F EPR #### [facility] ([facility]) [address] [place] [address] VIR IRON BINDING 403 ug/dL Normal 250-425 [facility] Comment on above: Performed By: #### F EPR #### [facility] ([facility]) [address] [place] [address] VIR IRON SATURATION 27 % SATURATION Normal 15-50 [facility] Comment on above: Performed By: #### F EPR #### [facility] ([facility]) [address] [place] [address] VIR Transferrin [Mass/Vol] 288 mg/dL Normal 168-336 [facility] Comment on above: Performed By: #### F EPR #### [facility] ([facility]) [address] [place] [address] VIR LIPID PROFILEon 04-15-2025 Cholesterol [Mass/Vol] 185 mg/dL Normal 150-200 [facility] Comment on above: Performed By: #### L IPR #### [facility] ([facility]) [address] [place] [address] VIR Cholesterol in HDL [Mass/Vol] 97 mg/dL Normal >39 [facility] Comment on above: Result Comment: HDL <40 mg/dL - High Risk HDL > or = 40mg/dL- Desirable HDL >60 mg/dL - Negative Risk Performed By: #### L IPR #### [facility] ([facility]) [address] [place] [address] VIR Cholesterol in LDL [Mass/Vol] 81 mg/dL Normal <130 [facility] Comment on above: Result Comment: LDL <100 mg/dL - Desirable LDL >160 mg/dL - High Risk Performed By: #### L IPR #### [facility] ([facility]) [address] [place] [address] VIR CHOLESTEROL:HDL 1.9 Normal 1.0-5.0 [facility] Comment on above: Performed By: #### L IPR #### [facility] ([facility]) [address] [place] [address] VIR Triglyceride [Mass/Vol] 37 mg/dL Normal 27-150 [facility] Comment on above: Performed By: #### L IPR #### [facility] ([facility]) [address] [place] [address] VIR VERY LOW LIPOPROTEIN 7 mg/dL Normal 0-30 [facility] Comment on above: Performed By: #### L IPR #### [facility] ([facility]) [address] [place] [address] VIR VITAMIN B12on 04-15-2025 Cobalamin (Vitamin B12) [Mass/Vol] 424 pg/mL Normal 180-914 [facility] Comment on above: Performed By: #### B 12 #### [facility] ([facility]) [address] [place] [address] VIR Drew 07-12-2024 L Specimen: [id number] Received: 07/15/24 Status: TOMÁS Barry Num: [id number] Spec Type: Surgical Subm Dr: Maryan Zimmer Tissues: A Ovary - Cyst, Non-Neoplastic Procedures: HE/3, Gross/Micro L4 Age/ Patient Sex Location Account Attending Physician Italia Núñez 59/F [facility] [id number] Maryan Zimmer SPEC NUM: [id number] RECD: 07/15/24 STATUS: TOMÁS REQ NUM: [id number] HERBERTH: 07/12/[address]: Maryan Zimmer ENTERED: 07/15/[address] [facility] [address]: SPEC TYPE: Surgical DEPT: JOSE TAVERAS ENTERED BY: [id number] RECV BY: [id number] ORDERED: HE/3, Gross/Micro L4 ORDERED: HE/3, Gross/Micro L4 Pathological Diagnosis Cysts, right ovary, right salpingo-oophorectom y: Benign ovarian serous cysts. Clinical Information Pelvic pain, cyst on right ovary Gross Description The specimen was received in formalin with the patient's name and right ovary is a right fimbriated fallopian tube measuring 3.8 cm in length with a diameter of 0.7 cm. The fimbria measures 2.0 x 1.0 x 0.5 cm. The attached right ovary measures 3.0 x 1.5 x 1.3 cm. The exterior surface is marquse-yellow, roughened, with cystic structures, ranging in size from 0.3 to 0.6 cm in greatest dimension. The ovary is serially sectioned revealing multiple cystic structures ranging in size from 0.1 to 0.5 cm in greatest dimension. [employer] sections are submitted as follows: Cassette A1-A2 ovary Cassette A3 sales utility representative sections of fallopian tube [facility] Codes 94812 Specimen: [id number] Received: 07/15/24 Status: TOMÁS Barry Num: [id number] Spec Type: Surgical Subm Dr: Maryan Zimmer Tissues: A Ovary - Cyst, Non-Neoplastic Procedures: HE/3, Gross/Micro L4 Patient: Italia Núñez [id number] (Continued) Signed (signature on file) Duc Griffin MD 07/18/24 1308 Normal [facility] L Specimen: Received: 07/15/24 Status: TOMÁS Barry Num: [id number] Spec Type: Cytology Subm Dr: Maryan Zimmer Tissues: A CYST FLUID (RT CYST FLUID) Procedures: HE/2, Gross/Micro L4, Cyto Prepstain, PAPSTN Age/ Patient Sex Location Account Attending Physician Italia Núñez 59/F LABELL [id number] Maryan Zimmer SPEC NUM: [id number] RECD: 07/15/24 STATUS: TOMÁS BARRY NUM: [id number] HERBERTH: 07/12/[address]: Maryan Zimmer ENTERED: 07/15/24-13[address] [facility] [address]: Luciano,Lab SPEC TYPE: Cytology DEPT: JOSE BURLESON ENTERED BY: [id number] RECV BY: [id number] ORDERED: HE/2, Gross/Micro L4, Cyto Prepstain, PAPSTN ORDERED: HE/2, Gross/Micro L4, Cyto Prepstain, PAPSTN Pathological Diagnosis Right cyst fluid: Negative for malignant cells. Gross Description Received fresh is 20 ml yellow slightly hazy unfixed fluid for cytology said to have been obtained as Right cyst fluid. ThinPrep and cell block preparations are prepared for microscopic examination.(CC/co) CPT Codes 15311 Specimen: [id number] Received: 07/15/24 Status: TOMÁS Barry Num: [id number] Spec Type: Cytology Subm Dr: Maryan Zimmer Tissues: A CYST FLUID (RT CYST FLUID) Procedures: HE/2, Gross/Micro L4, Cyto Prepstain, PAPSTN Patient: Italia Núñez [id number] (Continued) Signed (signature on file) Duc Griffin MD 07/16/24 1353 Normal [facility] BI MAMMOGRAM SCREENING TOMOS YTERRANCEAMMONIS BILATERALon 05-29-2024 BI MAMMOGRAM SCREENING TOMOSYNTHESIS BILATERAL [...] IS VERY IMPORTANT TO YOUR HEALTH. THE [employer] GUIDELINES RECOMMEND THAT WOMEN 40 [...] 24 ABSOLUTE BASOPHIL 0.0 X10E9/L Normal 0.0-0.2 [facility] Comment on above: Performed By: #### C BCA, CMP, FEPR, 05909-6, 3016-3, 2276-4, 2132-07 #### [facility] ([id number]) [address], [address] [place] [address] ABSOLUTE NEUTROPHIL 1.8 X10E9/L Normal 1.5-6.6 [facility] Comment on above: Performed By: #### C BCA, CMP, FEPR, 05934-9, 3016-3, 2276-4, 2132-07 #### [facility] ([id number]) [address], [address] [place] [address] Basophils/100 WBC (Bld) 1.4 % Normal [facility] Comment on above: Performed By: #### C BCA, CMP, FEPR, 33455-7, 3016-3, 2276-4, 2132-07 #### [facility] ([id number]) [address], [address] [place] [address] Eosinophils (Bld) [#/Vol] 0.1 10*3/uL Normal 0.0-0.4 [facility] Comment on above: Performed By: #### C BCA, CMP, FEPR, 86590-9, 3016-3, 2275-4, 2132-07 #### [facility] ([id number]) [address], [facility] [address] [place] [address] Eosinophils/100 WBC (Bld) 4.2 % Normal [facility] Comment on above: Performed By: #### C BCA, CMP, FEPR, 11355-5, 6-3, 2275-4, 2132-07 #### [facility] ([id number]) [address] [address] Erythrocyte distribution width (RBC) [Ratio] 13.3 % Normal 11.5-15.0 [facility] Comment on above: Performed By: #### C BCA, CMP, FEPR, 97263-1, 6-3, 2275-, 2132-07 #### [facility] ([id number]) [address] [address] [place] [address] Hematocrit (Bld) [Volume fraction] 35.8 % Normal 35-47 [facility] Comment on above: Performed By: #### C BCA, CMP, FEPR, 75010-5, 3016-3, 2275-4, 2132-07 #### [facility] ([id number]) [address] [place] [address] Hemoglobin (Bld) [Mass/Vol] 12.0 g/dL Normal 11.7-15.5 [facility] Comment on above: Performed By: #### C BCA, CMP, FEPR, 95590-6, 3016-3, 2276-02, 2132-07 #### [facility] ([id number]) [address], [address] [place] [address] Lymphocytes (Bld) [#/Vol] 1.3 10*3/uL Normal 1.0-3.5 [facility] Comment on above: Performed By: #### C BCA, CMP, FEPR, 06477-0, 6-3, 2275-4, 2132-07 #### [facility] ([id number]) [address], [address] [place] [address] Lymphocytes/100 WBC (Bld) 35.0 % Normal [facility] Comment on above: Performed By: #### C BCA, CMP, FEPR, 86689-5, 3015-3, 2276-02, 2132-07 #### [facility] ([id number]) [address], [address] [place] [address] MCH (RBC) [Entitic mass] 27.9 pg Normal 27-34 [facility] Comment on above: Performed By: #### C BCA, CMP, FEPR, 08645-1, 3015-3, 2275-, 2132-07 #### [facility] ([id number]) [address], [address] [place] [address] MCHC (RBC) [Mass/Vol] 33.6 g/dL Normal 32-36 [facility] Comment on above: Performed By: #### C BCA, CMP, FEPR, 75351-3, 6-3, 2275-, 2132-07 #### [facility] ([id number]) [address], [address] [place] [address] MCV (RBC) [Entitic vol] 83 fL Normal 80-100 [facility] Comment on above: Performed By: #### C BCA, CMP, FEPR, 03384-4, 6-3, 2275-4, 2132-07 #### [facility] ([id number]) [address], [address] [place] [address] Monocytes (Bld) [#/Vol] 0.3 10*3/uL Normal 0-0.9 [facility] Comment on above: Performed By: #### C BCA, CMP, FEPR, 09861-9, 3016-3, 2276-4, 2132-07 #### [facility] ([id number]) [address], [address] [place] [address] Monocytes/100 WBC (Bld) 9.7 % Normal [facility] Comment on above: Performed By: #### C BCA, CMP, FEPR, 24096-1, 3016-3, 2275-4, 2132-07 #### [facility] ([id number]) [address], [address] [place] [address] Neutrophils/100 WBC (Bld) 49.7 % Normal [facility] Comment on above: Performed By: #### C BCA, CMP, FEPR, 94191-5, 3016-3, 2276-4, 2132-07 #### [facility] ([id number]) [address], [address] [place] [address] Platelet mean volume (Bld) [Entitic vol] 7.7 fL Normal 7-12 [facility] Comment on above: Performed By: #### C BCA, CMP, FEPR, 47556-5, 3016-3, 2276-4, 2132-07 #### [facility] ([id number]) [address], [address] [place] [address] Platelets (Bld) [#/Vol] 324 10*3/uL Normal 150-450 [facility] Comment on above: Performed By: #### C BCA, CMP, FEPR, 73435-8, 3016-3, 2276-4, 2132-07 #### [facility] ([id number]) [address], [address] [place] [address] RBC COUNT 4.31 X10E12/L Normal 3.80-5.20 [facility] Comment on above: Performed By: #### C BCA, CMP, FEPR, 31990-7, 3016-3, 2276-4, 9 #### [facility] ([id number]) [address], [address] [place] [address] WBC (Bld) [#/Vol] 3.6 10*3/uL Low 4.0-11.0 [facility] Comment on above: Performed By: #### C BCA, CMP, FEPR, 00053-8, 3016-3, 2276-4, 2132-07 #### [facility] ([id number]) [address] [address] [place] [address] COMPREHENSIVE METABOLIC PANE [facility] 04-09-2024 Albumin [Mass/Vol] 4.1 g/dL Normal 3.2-5.3 [facility] Comment on above: Performed By: #### C BCA, CMP, FEPR, 62098-5, 3016-3, 2276-4, 2132-07 #### [facility] ([id number]) [address] [address] [place] [address] ALP [Catalytic activity/Vol] 53 U/L Normal 39-130 [facility] Comment on above: Performed By: #### C BCA, CMP, FEPR, 78188-7, 3016-3, 2276-4, 2132-07 #### [facility] ([id number]) [address] [address] [place] [address] ALT [Catalytic activity/Vol] 19 U/L Normal 0-31 [facility] Comment on above: Performed By: #### C BCA, CMP, FEPR, 38427-7, 3016-3, 2276-4, 2131-9 #### [facility] ([id number]) [address] [place] [address] Anion gap [Moles/Vol] 9 mmol/L Normal 5-15 [facility] Comment on above: Performed By: #### C BCA, CMP, FEPR, 33105-1, 3016-3, 2276-4, 2132-07 #### [facility] ([id number]) [address] [place] [address] AST [Catalytic activity/Vol] 22 U/L Normal 0-41 [facility] Comment on above: Performed By: #### C BCA, CMP, FEPR, 23355-8, 3016-3, 2275-4, 2132-07 #### [facility] ([id number]) [address] [place] [address] Bilirubin [Mass/Vol] 0.4 mg/dL Normal 0.3-1.2 [facility] Comment on above: Performed By: #### C BCA, CMP, FEPR, 01347-3, 3016-3, 2275-4, 2132-07 #### [facility] ([id number]) [address] [place] [address] Calcium [Mass/Vol] 9.2 mg/dL Normal 8.5-10.5 [facility] Comment on above: Performed By: #### C BCA, CMP, FEPR, 95538-2, 3016-3, 2276-4, 2132-07 #### [facility] ([id number]) [address], [address] [place] [address] Chloride [Moles/Vol] 106 mmol/L Normal 98-109 [facility] Comment on above: Performed By: #### C BCA, CMP, FEPR, 83868-3, 3016-3, 2276-4, 2132-07 #### [facility] ([id number]) [address], [address] [place] [address] CO2 [Moles/Vol] 25 mmol/L Normal 22-32 [facility] Comment on above: Performed By: #### C BCA, CMP, FEPR, 15226-2, 3016-3, 2276-4, 2132-07 #### [facility] ([id number]) [address] [place] [address] Creatinine [Mass/Vol] 0.67 mg/dL Normal 0.40-1.00 [facility] Comment on above: Result Comment: METH OD TRACEABLE TO IDMS STANDARD Performed By: #### C BCA, CMP, FEPR, 68713-7, 3016-3, 2276-4, 2132-07 #### [facility] ([id number]) [address], [address] [address] eGFR (CKD-EPI) NON-RACE DEPENDENT >90 Normal >59 [facility] Comment on above: Result Comment: Reported eGFR is based on the CKD-EPI 2020 equation that does not use a race coefficient. Performed By: #### C BCA, CMP, FEPR, 98622-0, 3016-3, 2276-4, 2132-07 #### [facility] ([id number]) [address] [address] [place] [address] Glucose [Mass/Vol] 96 mg/dL Normal 65-99 [facility] Comment on above: Performed By: #### C BCA, CMP, FEPR, 80457-9, 3016-3, 2276-4, 2132-07 #### [facility] ([id number]) [address] [address] [place] [address] Potassium [Moles/Vol] 4.4 mmol/L Normal 3.5-5.0 [facility] Comment on above: Performed By: #### C BCA, CMP, FEPR, 28234-7, 3016-3, 2276-4, 9 #### [facility] ([id number]) [address], [address] [place] [address] [place] [address] Protein [Mass/Vol] 6.8 g/dL Normal 6.0-8.0 [facility] Comment on above: Performed By: #### C BCA, CMP, FEPR, 31830-7, 3016-3, 2276-4, 2132-07 #### [facility] ([id number]) [address], [address] [place] [address] Sodium [Moles/Vol] 140 mmol/L Normal 134-146 [facility] Comment on above: Performed By: #### C BCA, CMP, FEPR, 86849-6, 3016-3, 2275-4, 2132-07 #### [facility] ([id number]) [address] [place] [address] Urea nitrogen [Mass/Vol] 15 mg/dL Normal 5-23 [facility] Comment on above: Performed By: #### C BCA, CMP, FEPR, 20018-1, 3016-3, 6-4, 2132-07 #### [facility] ([id number]) [address] [place] [address] FERRITINon 04-09-2024 Ferritin [Mass/Vol] 7 ng/mL Low 11-307 [facility] Comment on above: Performed By: #### C BCA, CMP, FEPR, 83216-4, 3016-3, 6-4, 2132-07 #### [facility] ([id number]) [address], [address] [place] [address] IRON PROFILEon 04-09-2024 Iron [Mass/Vol] 77 ug/dL Normal 50-170 [facility] Comment on above: Performed By: #### C BCA, CMP, FEPR, 38058-6, 3016-3, 2276-4, 2132-07 #### [facility] ([id number]) [address], [address] [place] [address] IRON BINDING 402 ug/dL Normal 250-425 [facility] Comment on above: Performed By: #### C BCA, CMP, FEPR, 42548-5, 3016-3, 2276-4, 2132-07 #### [facility] ([id number]) [address], [address] [place] [address] IRON SATURATION 19 % SATURATION Normal 15-50 [facility] Comment on above: Performed By: #### C BCA, CMP, FEPR, 32257-2, 3016-3, 6-4, 2132-07 #### [facility] ([id number]) [address] [place] [address] Lipid 1996 panelon 4 Cholesterol [Mass/Vol] 192 mg/dL Normal 150-200 [facility] Comment on above: Performed By: #### C BCA, CMP, FEPR, 59473-1, 3016-3, 6-4, 2132-07 #### [facility] ([id number]) [address] [place] [address] Cholesterol in HDL [Mass/Vol] 96 mg/dL Normal >39 [facility] Comment on above: Result Comment: HDL <40 mg/dL - High Risk HDL > or = 40mg/dL- Desirable HDL >60 mg/dL - Negative Risk Performed By: #### C BCA, CMP, FEPR, 81557-5, 3016-3, 2276-4, 2132-07 #### [facility] ([id number]) [address] [place] [address] Cholesterol in LDL [Mass/Vol] 89 mg/dL Normal <130 [facility] Comment on above: Result Comment: LDL <100 mg/dL - Desirable LDL >160 mg/dL - High Risk Performed By: #### C BCA, CMP, FEPR, 54985-1, 3016-3, 2276-4, 2132-07 #### [facility] ([id number]) [address] [place] [address] Cholesterol in VLDL [Mass/Vol] 7 mg/dL Normal 0-30 [facility] Comment on above: Performed By: #### C BCA, CMP, FEPR, 66562-8, 3016-3, 6-4, 2132-07 #### [facility] ([id number]) [address] [place] [address] CHOLESTEROL:HDL 2.0 Normal 1.0-5.0 [facility] Comment on above: Performed By: #### C BCA, CMP, FEPR, 94903-5, 3016-3, 2276-4, 2132-07 #### [facility] ([id number]) [address] [place] [address] Triglyceride [Mass/Vol] 35 mg/dL Normal 27-150 [facility] Comment on above: Performed By: #### C BCA, CMP, FEPR, 79019-9, 3016-3, 2276-4, 2132-07 #### [facility] ([id number]) [address] [place] [address] TSH Qnon 04-09-2024 TSH 2.86 uIU/mL Normal 0.49-4.67 [facility] Comment on above: Performed By: #### C BCA, CMP, FEPR, 46318-6, 3016-3, 2276-4, 2132-07 #### [facility] ([id number]) [address] [place] [address] VITAMIN B12on 04-09-2024 Cobalamin (Vitamin B12) [Mass/Vol] 208 pg/mL Normal 180-914 [facility] Comment on above: Performed By: #### C BCA, CMP, FEPR, 56537-6, 3016-3, 2276-4, 2132-9 #### [facility] ([id number]) [address] [place] [address], [address] [place] [address] IRON AND TOTAL IRON BINDING CAPACITYon 07-04-2023 % SATURATION 22 % (calc) Normal 16-45 [facility] Comment on above: Performed By: #### 7 573 #### [facility] [address], [address] [place] [address] Motor Tester: Emmett Fox MD IRON BINDING CAPACITY 334 mcg/dL (calc) Normal 250-450 [facility] Comment on above: Performed By: #### 7 573 #### [facility] [address], [address] [place] [address] Motor Tester: Emmett Fox MD IRON, TOTAL 73 mcg/dL Normal 45-160 [facility] Comment on above: Performed By: #### 7 573 #### [facility] [address], [address] [place] [address] Motor Tester: Emmett Fox MD Urinalysis - AUTOMATEDon Appearance (U) clear Chamate Other Bilirubin Ql (U) Negative [employer] Other Color (U) yellow listedplaces Other Glucose Ql (U) Negative Chamate Other Hemoglobin Ql (U) Negative [employer] Other Ketones Ql (U) Negative Chamate Other Leukocyte esterase Test strip Ql (U) trace listedplaces Other Nitrite Ql (U) Negative Chamate Other pH (U) 6.0 [pH] listedplaces Other Protein Ql (U) Negative Chamate Other Specific gravity (U) [Rel density] 1.010 listedplaces Other Urobilinogen (U) [Mass/Vol] 0.2 mg/dL listedplaces Other Urinalysis - AUTOMATED listedplaces Other CBC AUTO DIFFon 01-28-2022 BASO # 0.1 103/ul Normal 0.0-0.1 [facility] Comment on above: Performed By: #### C BC #### [facility] [address] [place] [address] Dr. Josie Allred Basophils/100 WBC (Bld) 1.5 % Normal 0.2-2.0 [facility] Comment on above: Performed By: #### C BC #### [facility] [address] [place] [address] Dr. Josie Allred EO # 0.2 103/ul Normal 0.0-0.7 [facility] Comment on above: Performed By: #### C BC #### [facility] [address] [place] [address] Dr. oJsie Allred Eosinophils/100 WBC (Bld) 3.8 % Normal 0.9-7.0 [facility] Comment on above: Performed By: #### C BC #### [facility] [address] [place] [address] Dr. Josie Allred Erythrocyte distribution width (RBC) [Ratio] 12.8 % Normal 11.0-15.0 [facility] Comment on above: Performed By: #### C BC #### [facility] [address] [place] [address] Dr. Josie Allred Hematocrit (Bld) [Volume fraction] 37.7 % Normal 36.0-48.0 [facility] Comment on above: Performed By: #### C BC #### [facility] [address] [place] [address] Dr. Josie Allred Hemoglobin (Bld) [Mass/Vol] 12.1 g/dL Normal 12.0-16.0 [facility] Comment on above: Performed By: #### C BC #### [facility] [address] [place] [address] Dr. Josie Allred IG # 0.01 10e3/ul Normal 0.00-0.03 [facility] Comment on above: Performed By: #### C BC #### [facility] [address] [place] [address] Dr. Josie Allred IG % 0.3 % Normal 0.0-0.5 [facility] Comment on above: Performed By: #### C BC #### [facility] [address] [place] [address] Dr. Josie Allred LYMPH # 1.3 103/ul Normal 1.2-3.8 [facility] Comment on above: Performed By: #### C BC #### [facility] [address] [place] [address] Dr. Josie Allred Lymphocytes/100 WBC (Bld) 33.4 % Normal 20.5-60.0 [facility] Comment on above: Performed By: #### C BC #### [facility] [address] [place] [address] Dr. Josie Allred MANUAL DIFF REQ NO Normal [facility] Comment on above: Performed By: #### C BC #### [facility] [address] [place] [address] Dr. Josie Allred MCH (RBC) [Entitic mass] 27.5 pg Normal 26.7-34.0 [facility] Comment on above: Performed By: #### C BC #### [facility] [address] [place] [address] Dr. Josie Allred MCHC (RBC) [Mass/Vol] 32.1 g/dL Normal 29.9-35.2 [facility] Comment on above: Performed By: #### C BC #### [facility] [address] [place] [address] Dr. Josie Allred MCV (RBC) [Entitic vol] 85.7 fL Normal 81.0-99.0 [facility] Comment on above: Performed By: #### C BC #### [facility] [address] [place] [address] Dr. Josie Allred MONO # 0.4 103/ul Normal 0.3-0.8 [facility] Comment on above: Performed By: #### C BC #### [facility] [address] [place] [address] Dr. Josie Allred Monocytes/100 WBC (Bld) 10.1 % Normal 1.7-12.0 [facility] Comment on above: Performed By: #### C BC #### [facility] [address] [place] [address] Dr. Josie Allred NEUT # 2.0 103/ul Normal 1.4-6.5 [facility] Comment on above: Performed By: #### C BC #### [facility] [address] [place] [address] Dr. Josie Allred Neutrophils/100 WBC (Bld) 50.9 % Normal 43.0-75.0 [facility] Comment on above: Performed By: #### C BC #### [facility] [address] [place] [address] Dr. Josie Allred Platelet mean volume (Bld) [Entitic vol] 9.3 fL Critically low 9.5-13.5 [facility] Comment on above: Performed By: #### C BC #### [facility] [address] [place] [address] Dr. Josie Allred PLT 313 103/ul Normal 150-450 [facility] Comment on above: Performed By: #### C BC #### [facility] [address] [place] [address] Dr. Josie Allred RBC 4.40 106/ul Normal 4.20-5.40 [facility] Comment on above: Performed By: #### C BC #### [facility] [address] [place] [address] Dr. Josie Allred WBC 4.0 103/ul Normal 4.0-11.0 [facility] Comment on above: Performed By: #### C BC #### [facility] [address] [address] [address] Josie Allred IRONon 01-28-2022 Iron [Mass/Vol] 55.0 ug/dL Normal 37.0-170.0 [facility] Comment on above: Performed By: #### I DENNISE #### [facility] [address] [address] [address] Josie Allred LIPID PROFILEon 01-28-2022 CHOL-HDL RATIO NORM SEE BELOW Normal [facility] Comment on above: Result Comment: 3.3 - 4.4 LOW RISK 4.4 - 7.1 AVERAGE RISK 7.1 - 11.0 MODERATE RISK >11.0 HIGH RISK Performed By: #### L IPID, CMP #### [facility] [address] [place] [address] Dr. Josie Allred Cholesterol [Mass/Vol] 221 mg/dL Critically high <=200 [facility] Comment on above: Performed By: #### L IPID, CMP #### [facility] [address] [address] [address] Josie Allred Cholesterol in HDL [Mass/Vol] 114 mg/dL Normal [facility] Comment on above: Performed By: #### L IPID, CMP #### [facility] [address] [address] [address] Josie Allred Cholesterol in LDL [Mass/Vol] 101.2 mg/dL Normal [facility] Comment on above: Performed By: #### L IPID, CMP #### [facility] [address] [address] [address] Josie Allred Cholesterol.total/C holesterol in HDL [Mass ratio] 1.9 {ratio} Normal [facility] Comment on above: Performed By: #### L IPID, CMP #### [facility] [address] [address] [address] Josie Allred HDL NORMAL > or = 60 mg/dl - LOW CARDIOVASCULAR RISK <40 mg/dl - HIGH CARDIOVASCULAR RISK Normal [facility] Comment on above: Performed By: #### L IPID, CMP #### [facility] [address] [address] [address] Josie Allred LDL CALC NORMAL SEE BELOW Normal [facility] Comment on above: Result Comment: <100 mg/dl OPTIMAL 100 - 129 mg/dl NEAR OR ABOVE OPTIMAL 130 - 159 mg/dl BORDERLINE HIGH 160 - 189 mg/dl HIGH >190 mg/dl VERY HIGH Performed By: #### L IPID, CMP #### [facility] [address] [address] [address] Josie Allred Triglyceride [Mass/Vol] 29 mg/dL Normal <=150 [facility] Comment on above: Performed By: #### L IPID, CMP #### [facility] [address] [address] [address] Josie Allred VLDL CALC 5.8 mg/dL Normal [facility] Comment on above: Performed By: #### L IPID, CMP #### [facility] [address] [address] [address] Josie Allred MG MAMM SCREEN 3D АЛЕКСАНДР CADon 01-28-2022 MG MAMM SCREEN 3D АЛЕКСАНДР CAD Patient: ITALIA NÚÑEZ Exam Date: 01/28/2022 : 1965 Gender:F Ordering : DR CHELSEY DILL Admission #: [id number] Family : Order #: [id number] CLICK HERE TO VIEW EXAM RADIOLOGY REPORT [...] colon cancer at age 79. LOCATION: The [facility] BREAST COMPOSITION: Heterogeneously dense,which may obscure small [...] Randolph MD on 01/28/2022 at 08:07 Normal [facility] PROF 14(COMP METB)on 022 Albumin [Mass/Vol] 3.9 g/dL Normal 3.5-5.0 [facility] Comment on above: Performed By: #### L IPID, CMP #### [facility] [address] [address] [address] Josie Allred Albumin/Globulin [Mass ratio] 1.1 {ratio} Normal [facility] Comment on above: Performed By: #### L IPID, CMP #### [facility] [address] [place] [address] Dr. Josie Allred ALP [Catalytic activity/Vol] 56 U/L Normal 38-126 [facility] Comment on above: Performed By: #### L IPID, CMP #### [facility] [address] [address] [address] Josie Allred ALT [Catalytic activity/Vol] 25 U/L Normal 9-52 [facility] Comment on above: Performed By: #### L IPID, CMP #### [facility] [address] [address] [address] Josie Allred Anion gap [Moles/Vol] 12.2 mmol/L Normal [facility] Comment on above: Performed By: #### L IPID, CMP #### [facility] [address] [address] [address] Josie Allred AST [Catalytic activity/Vol] 21 U/L Normal 14-36 [facility] Comment on above: Performed By: #### L IPID, CMP #### [facility] [address] [address] [address] Josie Allred Bilirubin [Mass/Vol] 0.3 mg/dL Normal 0.2-1.3 [facility] Comment on above: Performed By: #### L IPID, CMP #### [facility] [address] [address] [address] Josie Allred Calcium [Mass/Vol] 8.8 mg/dL Normal 8.4-10.[address] [facility] Comment on above: Performed By: #### L IPID, CMP #### [facility] [address] [address] [address] Josie Allred Chloride [Moles/Vol] 104 mmol/L Normal 98-107 [facility] Comment on above: Performed By: #### L IPID, CMP #### [facility] [address] [address] [address] Josie Allred CO2 [Moles/Vol] 27.1 mmol/L Normal 22.0-30.0 [facility] Comment on above: Performed By: #### L IPID, CMP #### [facility] [address] [place] [address] Dr. Josie Allred Creatinine [Mass/Vol] 0.81 mg/dL Normal 0.52-1.04 [facility] Comment on above: Performed By: #### L IPID, CMP #### [facility] [address] [place] [address] Dr. Josie Allred EGFR-AF FAROESE >60 Normal >=60 [facility] Comment on above: Performed By: #### L IPID, CMP #### [facility] [address] [address] [address] Josie Allred EGFR-NON AF FAROESE >60 Normal >=60 [facility] Comment on above: Performed By: #### L IPID, CMP #### [facility] [address] [place] [address] Dr. Josie Allred Globulin (S) [Mass/Vol] 3.5 g/dL Normal [facility] Comment on above: Performed By: #### L IPID, CMP #### [facility] [address] [place] [address] Dr. Josie Allred Glucose [Mass/Vol] 100 mg/dL Normal 74-[address] [facility] Comment on above: Performed By: #### L IPID, CMP #### [facility] [address] [address] [address] Josie Allred Potassium [Moles/Vol] 4.3 mmol/L Normal 3.4-5.0 [facility] Comment on above: Performed By: #### L IPID, CMP #### [facility] [address] [place] [address] Dr. Josie Allred Protein [Mass/Vol] 7.4 g/dL Normal 6.1-8.2 [facility] Comment on above: Performed By: #### L IPID, CMP #### [facility] [address] [place] [address] Dr. Josie Allred Sodium [Moles/Vol] 139 mmol/L Normal 137-145 [facility] Comment on above: Performed By: #### L IPID, CMP #### [facility] [address] [place] [address] Dr. Josie Allred Urea nitrogen [Mass/Vol] 17.0 mg/dL Normal 7.0-17.0 [facility] Comment on above: Performed By: #### L IPID, CMP #### [facility] [address] [place] [address] Dr. Josie Allred Urea nitrogen/Creatinine [Mass ratio] 21.0 mg/mg Normal [facility] Comment on above: Performed By: #### L IPID, CMP #### [facility] [address] [place] [address] Dr. Josie Allred POINT OF CARE GLUCOSEon 11-27 Glucose [Mass/Vol] 156 mg/dL Critically high 74-106 [facility] Comment on above: Performed By: #### P OCGLUC #### [facility] [address] [place] [address] Dr. Josie Allred Vital Signs Date Time Vital Sign Value Performing Clinician Facility 07-14-2025 14:36-0400 Body mass index (BMI) [Ratio] 24.49 kg/m2 Marian CARLTON Work Phone: [facility] 07-14-2025 14:36-0400 Body weight 68.83 kg Marian CARLTON Work Phone: [facility] 07-14-2025 14:36-0400 Diastolic blood pressure 70 mm[Hg] Marian CARLTON Work Phone: [facility] 07-14-2025 14:36-0400 Systolic blood pressure 118 mm[Hg] Marian CARLTON Work Phone: [facility] 06-18-2025 17:27-0400 Body height 167.64 cm PHYSICIAN NO [facility] 06-18-2025 17:27-0400 Body mass index (BMI) [Ratio] 24.3 kg/m2 PHYSICIAN NO [facility] 06-18-2025 17:27-0400 Body temperature 97.4 [degF] PHYSICIAN NO [facility] 06-18-2025 17:27-0400 Body weight 68.49 kg PHYSICIAN NO [facility] 06-18-2025 17:27-0400 Diastolic blood pressure 65 mm[Hg] PHYSICIAN NO [facility] 06-18-2025 17:27-0400 Heart rate 72 /min PHYSICIAN NO [facility] 06-18-2025 17:27-0400 Respiratory rate 18 /min PHYSICIAN NO [facility] 06-18-2025 17:27-0400 SaO2% (BldA) [Mass fraction] 98 % PHYSICIAN NO [facility] 06-18-2025 17:27-0400 Systolic blood pressure 108 mm[Hg] PHYSICIAN NO [facility] 04-15-2025 07:31-0400 Body height 167.6 cm Paulette Marcelino APRN-[employer]LE [employer]ARD MEMBER Work Phone: [facility] 04-15-2025 07:31-0400 Body mass index (BMI) [Ratio] 24.63 kg/m2 Paulette Marcelino APRN-[employer] MEMBER Work Phone: [facility] [employer] [facility] 04-15-2025 07:31-0400 Body temperature 97.7 [degF] Paulette Marcelino APRN-[employer] MEMBER Work Phone: [facility] 04-15-2025 07:31-0400 Body weight 69.22 kg Paulette Marcelino SNUFF BLENDER-[employer]BER Work Phone: [facility] 04-15-2025 07:31-0400 Diastolic blood pressure 62 mm[Hg] Paulette Marcelino SNUFF BLENDER-[employer]BER Work Phone: [facility] 04-15-2025 07:31-0400 Heart rate 66 /min Paulette Marcelino SNUFF BLENDER-[employer]BER Work Phone: [facility] 04-15-2025 07:31-0400 Respiratory rate 16 /min Paulette Marcelino SNUFF BLENDER-[employer]BER Work Phone: [facility] 04-15-2025 07:31-0400 SaO2% (BldA) [Mass fraction] 99 % Paulette Marcelino SNUFF BLENDER-[employer]BER Work Phone: [facility] 04-15-2025 07:31-0400 Systolic blood pressure 100 mm[Hg] Paulette Marcelino SNUFF BLENDER-[employer]BER Work Phone: [facility] 07-25-2024 14:19-0400 Body height 167.6 cm Marian CARLTON Work Phone: [facility] 07-25-2024 14:19-0400 Body mass index (BMI) [Ratio] 24.23 kg/m2 Marian CARLTON Work Phone: [facility] 07-25-2024 14:19-0400 Body weight 68.09 kg Marian CARLTON Work Phone: [facility] 07-25-2024 14:19-0400 Diastolic blood pressure 70 mm[Hg] Marian Cintron PA Work Phone: [facility] 07-25-2024 14:19-0400 Systolic blood pressure 120 mm[Hg] Marian Cintron PA Work Phone: [facility] 04-09-2024 07:35-0400 Body height 167.6 cm Paulettecarol Marcelino SNUFF BLENDER-[employer] MEMBER Work Phone: [employer] 04-09-2024 07:35-0400 Body mass index (BMI) [Ratio] 25.2 kg/m2 Paulette Marcelino APRN-PAMELA [facility] 04-09-2024 07:35-0400 Body temperature 97.39 [degF] Paulette Marcelino APRN-PAMELA [facility] 04-09-2024 07:35-0400 Body weight 70.81 kg Paulette Marcelino APRN-PAMELA [facility] 04-09-2024 07:35-0400 Diastolic blood pressure 70 mm[Hg] Paulette Marcelino APRN-PAMELA [facility] 04-09-2024 07:35-0400 Heart rate 65 /min Paulette ONTIVEROS [facility] 04-09-2024 07:35-0400 SaO2% (BldA) [Mass fraction] 97 % Paulette Marcelino APRN-PAMELA [facility] 04-09-2024 07:35-0400 Systolic blood pressure 110 mm[Hg] Paulette Marcelino APRN-PAMELA Work Phone: [employer] 09-10-2022 10:55-0400 Body height 167.64 cm Indigo Mckeon Other [employer] Other 09-10-2022 10:55-0400 Body mass index (BMI) [Ratio] 24.37 kg/m2 Indigo Mckeon Other [employer] Other 09-10-2022 10:55-0400 Body temperature 97.5 [degF] Indigo Mckeon Other [employer] Other 09-10-2022 10:55-0400 Body weight 68.49 kg Indigo Mckeon Other [employer] Other 09-10-2022 10:55-0400 Diastolic blood pressure 61 mm[Hg] Indigo Mckeon Other [employer] Other 09-10-2022 10:55-0400 Respiratory rate 18 /min Indigo Mckeon Other [employer] Other 09-10-2022 10:55-0400 SaO2% (BldA) [Mass fraction] 99 % Indigo Mckeon Other [employer] Other 09-10-2022 10:55-0400 Systolic blood pressure 117 mm[Hg] Indigo Mckeon Other [employer] Other Encounters Encounter Date Encounter Type Care Provider Facility Start: 07-14-2025 End: 07-14-2025 Patient encounter procedure Marian CARLTON Work Phone: [facility] Start: 07-14-2025 End: 07-14-2025 Periodic preventive med est patient 40-64yrs Marian CARLTON Work Phone: [facility] Comment on above: Well woman exam with routine gynecological exam; Encounter for screening mammogram for malignant neoplasm of breast; Postmenopausal state Start: 07-14-2025 End: 07-14-2025 Bamboo flowsheet Marian CARLTON Work Phone: [facility] Start: 07-14-2025 End: 07-14-2025 Bamboo flowsheet Marian CARLTON Work Phone: [facility] Start: 06-18-2025 End: 06-18-2025 Patient encounter procedure Annika Valerio SNUFF BLENDER -[facility] Work Phone: Start: 06-18-2025 End: 06-18-2025 ambulatory PHYSICIAN NO FAMILY [facility] Work Phone: Start: 06-18-2025 End: 06-18-2025 Departed Referred Annika Naidu Iman SNUFF BLENDER [facility] Work Phone: Start: 04-15-2025 End: 04-15-2025 ambulatory PAULETTE Joanie MARCELINO [facility] Start: 04-15-2025 End: 04-15-2025 Patient encounter procedure Paulette Thomasillo SNUFF BLENDER-[employer]BER Work Phone: [facility] [employer] [facility] Start: 04-15-2025 End: 04-15-2025 Periodic preventive med est patient 40-64yrs Paulette J Ryland SNUFF BLENDER-[employer]BER Work Phone: [facility] Comment on above: Annual physical exam (Primary Dx); Blood tests for routine general physical examination; Other iron deficiency anemia Start: 04-15-2025 End: 04-15-2025 Physical examination Paulette J Marcelino SNUFF BLENDER-[employer]BER Work Phone: [facility] [employer] Work Phone: Start: 07-25-2024 End: 07-25-2024 Postop follow up visit related to original px Marian CARLTON Work Phone: [facility] Comment on above: Postoperative examin ation Start: 07-25-2024 End: 07-25-2024 Bamboo flowsheet Marian CARLTON Work Phone: [facility] Start: 07-25-2024 End: 07-25-2024 Bamboo flowsheet Marian CARLTON Work Phone: [facility] Start: 07-12-2024 End: 07-12-2024 [facility] Start: 07-12-2024 End: 07-12-2024 Departed Referred DO Maryan Zimmer Work Phone: [facility] Start: 07-01-2024 End: 07-01-2024 ambulatory MARIAN CINTRON Not Available Start: 06-13-2024 End: 06-13-2024 ambulatory MARYAN MESHA Not Available Start: 06-02-2024 End: 06-02-2024 ambulatory DIETER ROE Not Available Start: 05-29-2024 End: 05-29-2024 ambulatory MARYAN MESHA Not Available Start: 04-29-2024 End: 04-29-2024 ambulatory MARYAN MESHA Not Available Start: 04-09-2024 End: 04-10-2024 ambulatory PAULETTECarol THOMASILLO [facility] Start: 04-09-2024 End: 04-09-2024 Patient encounter procedure Paulette Nair Ryland SNUFF BLENDER-[employer]BER Work Phone: [facility] [employer] Start: 04-09-2024 End: 04-09-2024 Periodic preventive med est patient 40-64yrs Paulette Marcelino SNUFF BLENDER-[employer]BER Work Phone: [facility] Comment on above: Annual physical exam (Primary Dx); Blood tests for routine general physical examination; Other iron deficiency anemia Start: 04-09-2024 End: 04-09-2024 Physical examination Paulette Marcelino SNUFF BLENDER-[employer]BER Work Phone: [facility] [employer] Work Phone: Start: 09-10-2022 Office outpatient ne w 20 minutes Indigo Mckeon [facility] Start: 09-10-2022 End: 09-10-2022 ambulatory DO Josef Augmentra Work Phone: [employer] Other Start: 09-10-2022 End: 09-10-2022 Departed Referred DO Josef Augmentra Work Phone: [facility] [place] Start: 04-11-2022 End: 04-11-2022 Patient encounter procedure DO Josef Augmentra Work Phone: [facility] Start: 02-01-2022 Encounter for genera l adult medical examination without abnormal findings PAULETTE MARCELINO [facility] Start: 01-28-2022 End: 01-29-2022 Encounter for general adult medical examination without abnormal findings PAULETTE MARCELINO Facility:[facility] Start: 01-28-2022 End: 01-29-2022 ambulatory [facility] Facility:[facility] Start: 11-09-2017 Encounter for genera l adult medical examination without abnormal findings PAULETTE J [facility] Start: 11-09-2017 Patient encounter procedure Paulette Marcelino SNUFF BLENDER-[employer]BER Work Phone: [facility] Start: 11-01-2017 Encounter for genera l adult medical examination without abnormal findings [facility] Start: 11-01-2017 Physical examination Paulette regan SNUFF BLENDER-[employer]BER Work Phone: [facility] Procedures Date Procedure Procedure Detail Performing Clinician Start: 04-15-2025 Adult depression scr eening assessment Paulette Marcelino SNUFF BLENDER-[employer] Work Phone: Start: 07-01-2024 Microscopic observat ion [Identifier] in Cervix by Cyto stain Paulette Marcelino SNUFF BLENDER-[employer]BER Work Phone: Start: 05-29-2024 Mammography Marian CARLTON Work Phone: Start: 04-09-2024 Adult depression scr eening assessment Paulette Marcelino SNUFF BLENDER-[employer]BER Work Phone: Start: 02-17-2023 Mammography Paulette joy SNUFF BLENDER-[employer]BER Work Phone: Start: 04-11-2022 Plain X-ray of left elbow DO Josef House Work Phone: Start: 04-11-2022 Plain X-ray of left forearm DO Josef House Work Phone: Start: 02-25-2016 Colonoscopy Paulette jimenezo SNUFF BLENDER-[employer]BER Work Phone: Plan of Treatment Date Care Activity Detail Author Start: 08-05-2027 Screening for malign ant neoplasm of cervix Pap Smear [facility] Start: 07-16-2026 End: 07-16-2026 Patient encounter procedure 07/16/2026 9:00 AM EDT Procedure Visit JACQUELIN ORTIZ [address] [place] [id number] Marian Cintron PA [address] [place] [address] JACQUELIN ORTIZ Start: 04-21-2026 End: 04-21-2026 Patient encounter procedure 04/21/2026 7:00 AM EDT Office Visit [facility] [address] [place] [phone] Paulette Marcelino, SNUFF BLENDER-[employer]BER [address] [place] [phone] [facility] Start: 04-15-2026 Adult BMI Screening Adult BMI Screen ing [facility] Start: 04-15-2026 Depression Screening Depression Scre ening [facility] Start: 04-15-2026 Tobacco Screening Tobacco Screening [facility] Start: 02-24-2026 Screening for malign ant neoplasm of colon Colonoscopy [facility] Start: 07-28-2025 Influenza vaccination [facility] Start: 07-14-2025 End: 07-14-2025 Patient encounter procedure 07/14/2025 2:30 PM EDT Office Visit JACQUELIN ORTIZ [address] [place] [phone] Marian Cintron, PA [address] [place] [address] Arrived JACQUELIN ORTIZ Comment on above: Arrived Start: 07-14-2025 End: 07-14-2026 DXA Skeletal system Views for bone density DEXA bone density Imaging Routine Postmenopausal state Expected: 07/14/2025 (Approximate), Expires: 07/14/2026 [facility] Comment on above: Expected: 07/14/2025 (Approximate), Expires: 07/14/2026 Start: 07-14-2025 End: 09-13-2026 MG Breast - bilateral Screening Bilateral screening mammogram Imaging Routine Encounter for screening mammogram for malignant neoplasm of breast Expected: 07/14/2025, Expires: 09/13/2026 [facility] Work Phone: Comment on above: Expected: 07/14/2025 , Expires: 09/13/2026 Start: 07-08-2025 End: 07-08-2025 Patient encounter procedure 07/08/2025 9:00 AM EDT Office Visit [facility] [address] [place] [phone] Mraian Cintron PA [address] [place] [address] [facility] Start: 06-18-2025 Urine culture [facility] Start: 06-18-2025 Bacteria identified in Urine by Culture Urine Culture [facility] Start: 05-29-2025 Screening for malign ant neoplasm of breast Mammogram [facility] Start: 04-15-2025 End: 04-15-2025 Patient encounter procedure 04/15/2025 7:20 AM EDT Office Visit [facility] [address] [place] [phone] Paulette Marcelino, SNUFF BLENDER-[employer] MEMBER [address] [place] [address] [facility] Start: 04-09-2025 Adult BMI Follow Up Plan Adult BMI F ollow Up Plan [facility] Start: 04-09-2025 Adult BMI Screening Adult BMI Screen ing [facility] Start: 04-09-2025 Depression Screening Depression Scre ening [facility] Start: 04-09-2025 Tobacco Screening Tobacco Screening [facility] Start: 07-28-2024 [facility] Start: 07-25-2024 End: 07-25-2024 Patient encounter procedure 07/25/2024 2:20 PM EDT Office Visit [facility] [address] [place] [phone] Marian Cintron PA [address] [place] [address] Arrived [facility] Comment on above: Arrived Start: 02-18-2024 Screening for malign ant neoplasm of breast Mammogram [facility] Start: 2015 Administration of varicella zoster vaccine Zoster (Shingles) Vaccine (1 of 2) [facility] Start: 1986 Screening for malign ant neoplasm of cervix Pap Smear [facility] Start: 1984 DTaP,Tdap and Td Vaccines (1 - Tdap) DTaP,Tdap and Td Vaccines (1 - Tdap) [facility] Start: 1965 Screening for malign ant neoplasm of colon [facility] Bacteria identified in Urine by Culture [facility] End: 04-09-2025 CBC W Auto Differential panel - Blood CBC auto differential Lab Routine Blood tests for routine general physical examination 1 Occurrences starting 04/09/2024 until 04/09/2025 [facility] Comment on above: 1 Occurrences starti ng 04/09/2024 until 04/09/2025 End: 04-15-2026 CBC W Auto Differential panel - Blood CBC auto differential Lab Routine Blood tests for routine general physical examination 1 Occurrences starting 04/15/2025 until 04/15/2026 [facility] Comment on above: 1 Occurrences starti ng 04/15/2025 until 04/15/2026 End: 04-09-2025 Comprehensive metabolic 2000 panel - Serum or Plasma Comprehensive metabolic panel Lab Routine Blood tests for routine general physical examination 1 Occurrences starting 04/09/2024 until 04/09/2025 [facility] Work Phone: Comment on above: 1 Occurrences starti ng 04/09/2024 until 04/09/2025 End: 04-15-2026 Comprehensive metabolic 2000 panel - Serum or Plasma Comprehensive metabolic panel Lab Routine Blood tests for routine general physical examination 1 Occurrences starting 04/15/2025 until 04/15/2026 [employer] Phone: Comment on above: 1 Occurrences starti ng 04/15/2025 until 04/15/2026 End: 04-09-2025 Cyanocobalamin vitamin b-12 Vitamin B12 Lab Routine Other iron deficiency anemia 1 Occurrences starting 04/09/2024 until 04/09/20[facility]: 1 Occurrences starti ng 04/09/2024 until 04/09/2025 End: 04-15-2026 Cyanocobalamin vitamin b-12 Vitamin B12 Lab Routine Other iron deficiency anemia 1 Occurrences starting 04/15/2025 until 04/15/2026 [facility] Comment on above: 1 Occurrences starti ng 04/15/2025 until 04/15/2026 End: 04-09-2025 Ferritin [Mass/volume] in Serum or Plasma Ferritin Lab Routine Other iron deficiency anemia 1 Occurrences starting 04/09/2024 until 04/09/2025 [facility] on above: 1 Occurrences starti ng 04/09/2024 until 04/09/2025 End: 04-15-2026 Ferritin [Mass/volume] in Serum or Plasma Ferritin Lab Routine Other iron deficiency anemia 1 Occurrences starting 04/15/2025 until 04/15/2026 [facility] Comment on above: 1 Occurrences starti ng 04/15/2025 until 04/15/2026 End: 04-15-2026 Hemoglobin A1c/Hemoglobin.total in Blood Hemoglobin A1c Lab Routine Blood tests for routine general physical examination 1 Occurrences starting 04/15/2025 until 04/15/2026 [facility] Comment on above: 1 Occurrences starti ng 04/15/2025 until 04/15/2026 End: 04-09-2025 Iron and TIBC Iron and TIBC Lab Routine Other iron deficiency anemia 1 Occurrences starting 04/09/2024 until 04/09/2025 [facility] Comment on above: 1 Occurrences starti ng 04/09/2024 until 04/09/2025 End: 04-15-2026 Iron and TIBC Iron and TIBC Lab Routine Other iron deficiency anemia 1 Occurrences starting 04/15/2025 until 04/15/2026 [facility] Comment on above: 1 Occurrences starti ng 04/15/2025 until 04/15/2026 End: 04-09-2025 Lipid 1996 panel - Serum or Plasma Lipid profile Lab Routine Blood tests for routine general physical examination 1 Occurrences starting 04/09/2024 until 04/09/2025 [facility] Comment on above: 1 Occurrences starti ng 04/09/2024 until 04/09/2025 End: 04-15-2026 Lipid 1996 panel - Serum or Plasma Lipid profile Lab Routine Blood tests for routine general physical examination 1 Occurrences starting 04/15/2025 until 04/15/2026 [facility] Comment on above: 1 Occurrences starti ng 04/15/2025 until 04/15/2026 THIN PREP TIS PAP AN D HR HPV DNA THIN PREP TIS PAP AND HR HPV DNA Pathology and Cytology Routine Well woman exam with routine gynecological exam Ordered: 07/14/2025 [facility] Comment on above: Ordered: 07/14/2025 End: 04-09-2025 Thyrotropin [Units/volume] in Serum or Plasma TSH Lab Routine Blood tests for routine general physical examination 1 Occurrences starting 04/09/2024 until 04/09/2025 [facility] [facility] Comment on above: 1 Occurrences starti ng 04/09/2024 until 04/09/2025 Payers Date Payer Category Payer Unknown [id number] 2025 [facility] [id number] 2024 Self-pay [id number] 2022 Private Health Insurance [employer] [id number] 2016 Unknown [id number]. [id number] 1965 Unknown [id number] 2.16.840.1.163865.3.579.2. 593 1965 Unknown [id number] 2.16.840.1.897538.3.579.2. 593 1965 Unknown [id number] 2.16.840.1.380854.3.579.2. 1286 1965 Unknown [id number] 2.16.840.1.610544.3.579.2. 1258 1965 Unknown [id number] 2.16.840.1.769431.3.579.2. 1258 1965 Unknown [id number] 2.16.840.1.545043.3.579.2. 1259 1965 Unknown [id number] 2.16.840.1.743219.3.579.2. 1258 1965 Unknown [id number] [id number]. 9 1965 Unknown [id number] 2.16.840.1.253442.3.579.2. 1286 1959 Unknown [id number] [place] [facility] [id number] Unknown [id number]. 531 Unknown [id number]. 531 Social History Date Type Detail Facility Tobacco smoking stat [facility] Unknown if ever smoked [facility] Work Phone: Start: 1965 Sex Assigned At Female F [facility] Start: 01-07-2021 End: 04-09-2024 Sex Assigned At [facility] Tobacco smoking stat [facility] Tobacco smoking consumption unknown [facility] Start: 1965 Sex assigned at Not on file P [facility] Start: 05-03-2023 End: 04-15-2025 Tobacco smoking status NHIS Ex-smoker [facility] End: 11-27-2007 History of tobacco use Current smoker [facility] End: 11-27-2007 History of tobacco use Cigarette Smoker [facility] Start: 05-03-2023 End: 04-15-2025 Tobacco use and exposure Smokeless tobacco non-user [facility] Start: 04-09-2024 End: 04-15-2025 Alcoholic beverage intake Current drinker of alcohol (finding) [facility] Start: 01-07-2021 End: 04-09-2024 History of Social function [facility] Adolescent depressio n screening assessment 0 [facility] Start: 08-08-2017 Alcohol Comment [facility]ail[facility] Start: 07-02-2015 Sex Female (finding) [facility] Start: 06-18-2025 Tobacco smoking stat [facility] Never smoked tobacco (finding) [facility] Clinical Notes 09-10-2022 to 07-14-2025 BRANDT Lemos - 07/14/2025 2:30 PM EDT Note Date & Type Note Facility 07-14-2025 History of Presen t illness Narrative Reason for Appointment: Patient ID: Italia Núñez is a 60 y.o. female who presents for Well Women Visit Patient presents today for Annual Exam. MEDICATIONS Current Outpatient Medications Medication Instructions acetaminophen (Tylenol) 325 MG tablet Every 4 hours ascorbic acid (Vitamin C) 100 MG chewable tablet Vitamin C ascorbic acid (Vitamin C) 500 MG tablet b complex vitamins capsule 1 capsule, Oral, Daily Bacillus Coagulans-Inulin (Probiotic) 1-250 BILLION-MG capsule Probiotic Cholecalciferol (Vitamin D3) 1000 units capsule Vitamin D3 1000 diclofenac (Voltaren) 50 MG EC tablet take 1 tablet by mouth every 12 hours if needed for pain ferrous sulfate 325 (65 Fe) MG tablet Every 24 hours MAGNESIUM 4 MUSCLES Magnesium Pediatric Multivitamins-Fl (MultiVitamin + Fluoride) 0.25 MG chewable tablet Multivitamin ALLERGIES No Known Allergies PROBLEMS Active Ambulatory Problems Diagnosis Date Noted No Active Ambulatory Problems Resolved Ambulatory Problems Diagnosis Date Noted No Resolved Ambulatory Problems Past Medical History: Diagnosis Date Appendicitis Carcinoid tumor (HCC) Sinus infection HISTORY PAST MEDICAL HISTORY SOCIAL HISTORY Past Medical History: Diagnosis Date Appendicitis Carcinoid tumor (HCC) Sinus infection Social History Tobacco Use Smoking status: Not on file Smokeless tobacco: Not on file Substance Use Topics Alcohol use: Not on file Drug use: Not on file FAMILY HISTORY Family History Problem Relation Name Age of Onset Colon cancer Mother Multiple myeloma Father Heart disease Father SURGICAL HISTORY Past Surgical History: Procedure Laterality Date APPENDECTOMY PARTIAL HYSTERECTOMY RIGHT COLECTOMY RIGHT OOPHORECTOMY 07/12/2024 robotic lap assisted REVIEW OF SYSTEMS Review of Systems: Review of Systems Constitutional: Negative. HENT: Negative. Eyes: Negative. Respiratory: Negative. Cardiovascular: Negative. Gastrointestinal: Negative. Genitourinary: Negative. Musculoskeletal: Negative. Skin: Negative. Neurological: Negative. All other systems reviewed and are negative. Hematological: Negative. Endocrine: Negative. Allergic/Immunologic: Negative. OBJECTIVE Objective: Physical Exam Constitutional: Appearance: Normal appearance. She is well-developed. Genitourinary: Vulva normal. Right Adnexa: not tender and no mass present. Left Adnexa: not tender and no mass present. Cervix is absent. No cervical discharge. Uterus is absent. Breasts: Breasts are soft. Right: Normal. Left: Normal. HENT: Head: Normocephalic. Nose: Nose normal. Mouth/Throat: Mouth: Mucous membranes are moist. Cardiovascular: Rate and Rhythm: Normal rate and regular rhythm. Pulmonary: Effort: Pulmonary effort is normal. Breath sounds: Normal breath sounds. Abdominal: General: Bowel sounds are normal. There is no distension. Palpations: Abdomen is soft. Tenderness: There is no abdominal tenderness. There is no guarding or rebound. Musculoskeletal: General: No swelling. Normal range of motion. Cervical back: Normal range of motion. Right lower leg: No edema. Left lower leg: No edema. Neurological: General: No focal deficit present. Mental Status: She is alert and oriented to person, place, and time. Skin: General: Skin is warm and dry. Psychiatric: Mood and Affect: Mood normal. Behavior: Behavior normal. Vitals and nursing note reviewed. Exam conducted with a ventilating engineer present. Vitals: Estimated body mass index is 24.49 kg/m as calculated from the following: Height as of 24: 5' 6 . Weight as of this encounter: 151 lb 12 oz. BP: 118/70 No LMP recorded. Patient has had a hysterectomy. ASSESSMENT & PLAN ICD-10-CM 1. Well woman exam with routine gynecological exam Z01.419 THIN PREP TIS PAP AND HR HPV DNA 2. Encounter for screening mammogram for malignant neoplasm of breast Z12.31 Bilateral screening mammogram Bilateral screening mammogram 3. Postmenopausal state Z78.0 DEXA bone density Annual Exam: Patient presents today for an annual exam. Patient states she is doing well and has no complaints. Pap was obtained without difficulty. Orders Placed This Encounter Procedures Bilateral screening mammogram DEXA bone density Patient states she does Uziel for exercise and takes multivitamins daily and iron supplement. Previous dexa scan shows osteopenia. Options discussed if medication needed. Patient will add calcium and Vitamin D3 Follow Up: Patient is to return in one year for annual unless needed otherwise. Documented by Brittney Hernandez MA on behalf of: BRANDT Lemos documented in this encounter [facility] 06-18-2025 Evaluation note Diagnosis Onset Date Resolution Flank pain acute June 18 5:21pm Dysuria noneactive June 18 5:21pm [facility] Work Phone: [phone] 355-357205-20-2025 History of Present illness Narrative* Paulette Marcelino APRN-[employer] - 04/15/2025 7:20 AM EDT Images from the original note were not included. [address] [place] [address] SUBJECTIVE: Patient ID: Italia Núñez is a 60 y.o. female. Chief Complaint Patient presents with Annual Exam Presents for annual physical. She is . Has grown children, grandchildren. Does not smoke. Leads healthy lifestyle of dietary regimen and exercise. She would like iron panel drawn today. Has history of iron deficiency anemia. Annual Exam Pertinent negatives include no chest pain, chills or fever. The following portions of the patient's history were reviewed and updated as appropriate: allergies, current medications, past family history, past medical history, past social history, past surgicalhistory and problem list. Past Surgical History: Procedure Laterality Date APPENDECTOMY CLOSED REDUCTION RADIUS Left 04/13/2022 Performed by Enmanuel Marte DO at [facility] COLON SURGERY RESECTION HYSTERECTOMY PARTIAL Past Medical History: Diagnosis Date Visual impairment There is no immunization history on file for this patient. REVIEW OF SYSTEMS: Review of Systems Constitutional: Negative for chills and fever. HENT: Negative. Eyes: Negative for visual disturbance. Respiratory: Negative for chest tightness and shortness of breath. Cardiovascular: Negative for chest pain and palpitations. Gastrointestinal: Negative. Endocrine: Negative. Genitourinary: Negative for menstrual problem and pelvic pain. Musculoskeletal: Negative. Skin: Negative. Allergic/Immunologic: Negative. Neurological: Negative for syncope and facial asymmetry. Hematological: Does not bruise/bleed easily. Psychiatric/Behavioral: Negative. PHYSICAL EXAMINATION: Vitals: 04/15/25 0731 BP: 100/62 BP Site: Left Arm BP Postition: Sitting Pulse: 66 Resp: 16 Temp: 36.5 C (97.7 F) TempSrc: Tympanic SpO2: 99% Weight: 69.2 kg (152 lb 9.6 oz) Height: 167.6 cm (5' 6 ) Physical Exam Vitals and nursing note reviewed. Constitutional: General: She is not in acute distress. Appearance: She is well-developed. She is not diaphoretic. HENT: Head: Normocephalic and atraumatic. Right Ear: Tympanic membrane and external ear normal. Left Ear: Tympanic membrane and external ear normal. Nose: Nose normal. Mouth/Throat: Mouth: Mucous membranes are moist. Pharynx: No oropharyngeal exudate. Eyes: General: Right eye: No discharge. Left eye: No discharge. Conjunctiva/sclera: Conjunctivae normal. Pupils: Pupils are equal, round, and reactive to light. Neck: Thyroid: No thyromegaly. Vascular: No JVD. Cardiovascular: Rate and Rhythm: Normal rate and regular rhythm. Heart sounds: Normal heart sounds. No murmur heard. No friction rub. No gallop. Pulmonary: Effort: Pulmonary effort is normal. Breath sounds: Normal breath sounds. Abdominal: General: Bowel sounds are normal. There is no distension. Palpations: Abdomen is soft. There is no mass. Tenderness: There is no abdominal tenderness. Musculoskeletal: General: Normal range of motion. Cervical back: Normal range of motion and neck supple. Lymphadenopathy: Cervical: No cervical adenopathy. Skin: General: Skin is warm and dry. Capillary Refill: Capillary refill takes less than 2 seconds. Neurological: Mental Status: She is alert and oriented to person, place, and time. Deep Tendon Reflexes: Reflexes are normal and symmetric. Psychiatric: Mood and Affect: Mood normal. Behavior: Behavior normal. Thought Content: Thought content normal. Judgment: Judgment normal. ASSESSMENT/PLAN: Italia was seen today for annual exam. Diagnoses and all orders for this visit: Annual physical exam Blood tests for routine general physical examination - Comprehensive metabolic panel; Future - CBC auto differential; Future - Lipid profile; Future - Hemoglobin A1c; Future - Hemoglobin A1c - Lipid profile - CBC auto differential - Comprehensive metabolic panel Other iron deficiency anemia - Iron and TIBC; Future - Vitamin B12; Future - Ferritin; Future - Ferritin - Vitamin B12 - Iron and TIBC Colonoscopy screening discussed today. Risk and benefits of procedure explained. Patient completes every 5 years. Family history, mother of colon cancer. She is next due 2025. Depression: Not at risk (04/15/2025) PHQ-2 PHQ-2 Score: 0 Mammogram is ordered by Dr. Zimmer, [facility]. She sees her [facility] provider once yearly. ALL QUESTIONS ANSWERED Total time spent was 30 minutes: Preparing to see the patient (e.g., review of tests) Obtaining and/or reviewing separately obtained history Performing a medically appropriate examination and/or evaluation Counseling and educating the patient/family/caregiver Ordering medications, tests, or procedures Follow-up: One year Annual physical RAMA Fish 04/15/25 0807 [facility] History of Present illness Narrative* BRANDT Lemos - 07/25/2024 2:20 PM EDT Reason for Appointment: Patient ID: Italia Núñez is a 59 y.o. female who presents for Post-op Visit Patient presents today for post op laproscopic right oophrectomy 07/12/24 MEDICATIONS Current Outpatient Medications Medication Instructions acetaminophen (Tylenol) 325 MG tablet Every 4 hours ascorbic acid (Vitamin C) 100 MG chewable tablet Vitamin C ascorbic acid (Vitamin C) 500 MG tablet b complex vitamins capsule 1 capsule, Oral, Daily Bacillus Coagulans-Inulin (Probiotic) 1-250 BILLION-MG capsule Probiotic Cholecalciferol (Vitamin D3) 1000 units capsule Vitamin D3 1000 diclofenac (Voltaren) 50 MG EC tablet take 1 tablet by mouth every 12 hours if needed for pain ferrous sulfate 325 (65 Fe) MG tablet Every 24 hours MAGNESIUM 4 MUSCLES Magnesium Pediatric Multivitamins-Fl (MultiVitamin + Fluoride) 0.25 MG chewable tablet Multivitamin ALLERGIES No Known Allergies PROBLEMS Active Ambulatory Problems Diagnosis Date Noted No Active Ambulatory Problems Resolved Ambulatory Problems Diagnosis Date Noted No Resolved Ambulatory Problems Past Medical History: Diagnosis Date Appendicitis Carcinoid tumor (CMS/HCC) Sinus infection HISTORY PAST MEDICAL HISTORY SOCIAL HISTORY Past Medical History: Diagnosis Date Appendicitis Carcinoid tumor (CMS/HCC) Sinus infection Social History Tobacco Use Smoking status: Not on file Smokeless tobacco: Not on file Substance Use Topics Alcohol use: Not on file Drug use: Not on file FAMILY HISTORY Family History Problem Relation Name Age of Onset Colon cancer Mother Multiple myeloma Father Heart disease Father SURGICAL HISTORY Past Surgical History: Procedure Laterality Date APPENDECTOMY PARTIAL HYSTERECTOMY RIGHT COLECTOMY RIGHT OOPHORECTOMY 07/12/2024 robotic lap assisted REVIEW OF SYSTEMS Review of Systems: Review of Systems Constitutional: Negative. HENT: Negative. Eyes: Negative. Respiratory: Negative. Cardiovascular: Negative. Gastrointestinal: Negative. Genitourinary: Negative. Musculoskeletal: Negative. Skin: Negative. Neurological: Negative. All other systems reviewed and are negative. Hematological: Negative. Endocrine: Negative. Allergic/Immunologic: Negative. OBJECTIVE Objective: Physical Exam Constitutional: Appearance: Normal appearance. She is normal weight. HENT: Head: Normocephalic. Cardiovascular: Rate and Rhythm: Normal rate. Pulses: Normal pulses. Pulmonary: Effort: Pulmonary effort is normal. Breath sounds: Normal breath sounds. Abdominal: Palpations: Abdomen is soft. Comments: Incisions healing well Musculoskeletal: General: Normal range of motion. Neurological: General: No focal deficit present. Mental Status: She is alert and oriented to person, place, and time. Skin: General: Skin is warm and dry. Psychiatric: Mood and Affect: Mood normal. Behavior: Behavior normal. Thought Content: Thought content normal. Judgment: Judgment normal. Vitals and nursing note reviewed. Vitals: Estimated body mass index is 24.23 kg/m as calculated from the following: Height as of this encounter: 5' 6 . Weight as of this encounter: 150 lb 1.9 oz. BP: 120/70 No LMP recorded. Patient has had a hysterectomy. ASSESSMENT & PLAN ICD-10-CM 1. Postoperative examination Z09 Pt doing well, incisions clean and dry. Patient pathology reviewed and restrictions lifted. Pt willreturn for annual or sooner if necessary Documented by BRANDT Lemos on behalf of: BRANDT Lemos documented in [facility] encounterTwo [facility] [id number] History of Present illness Narrative* Paulette Marcelino APRN-[employer] - 04/09/2024 7:30 AM EDT Images from the original note were not included. [address] [place] [address] SUBJECTIVE: Patient ID: Italia Núñez is a 59 y.o. female. Chief Complaint Patient presents with Annual Exam Presents for annual physical. She is . Has grown children, grandchildren. Does not smoke. Leads healthy lifestyle of dietary regimen and exercise. She would like iron panel drawn today. Has history of iron deficiency anemia. Reports has been feeling more fatigued lately. Just recently restarted iron supplement. Annual Exam Associated symptoms include fatigue. Pertinent negatives include no chest pain, chills or fever. The following portions of the patient's history were reviewed and updated as appropriate: allergies, current medications, past family history, past medical history, past social history, past surgicalhistory and problem list. Past Surgical History: Procedure Laterality Date APPENDECTOMY CLOSED REDUCTION RADIUS Left 04/13/2022 Performed by Enmanuel Marte DO at [facility] COLON SURGERY RESECTION HYSTERECTOMY PARTIAL Past Medical History: Diagnosis Date Visual impairment There is no immunization history on file for this patient. REVIEW OF SYSTEMS: Review of Systems Constitutional: Positive for fatigue. Negative for chills and fever. HENT: Negative. Eyes: Negative for visual disturbance. Respiratory: Negative for chest tightness and shortness of breath. Cardiovascular: Negative for chest pain and palpitations. Gastrointestinal: Negative. Endocrine: Negative. Genitourinary: Negative for menstrual problem and pelvic pain. Musculoskeletal: Negative. Skin: Negative. Allergic/Immunologic: Negative. Neurological: Negative for syncope and facial asymmetry. Hematological: Does not bruise/bleed easily. Psychiatric/Behavioral: Negative. PHYSICAL EXAMINATION: Vitals: 04/09/24 0735 BP: 110/70 BP Site: Left Arm BP Postition: Sitting Pulse: 65 Temp: 36.3 C (97.4 F) TempSrc: Tympanic SpO2: 97% Weight: 70.8 kg (156 lb 1.6 oz) Height: 167.6 cm (5' 6 ) Patient noted to have elevated BMI and the following intervention(s) were applied: encouragement toexercise. Physical Exam Vitals and nursing note reviewed. Constitutional: General: She is not in acute distress. Appearance: She is well-developed. She is not diaphoretic. HENT: Head: Normocephalic and atraumatic. Right Ear: Tympanic membrane and external ear normal. Left Ear: Tympanic membrane and external ear normal. Nose: Nose normal. Mouth/Throat: Mouth: Mucous membranes are moist. Pharynx: No oropharyngeal exudate. Eyes: General: Right eye: No discharge. Left eye: No discharge. Conjunctiva/sclera: Conjunctivae normal. Pupils: Pupils are equal, round, and reactive to light. Neck: Thyroid: No thyromegaly. Vascular: No JVD. Cardiovascular: Rate and Rhythm: Normal rate and regular rhythm. Heart sounds: Normal heart sounds. No murmur heard. No friction rub. No gallop. Pulmonary: Effort: Pulmonary effort is normal. Breath sounds: Normal breath sounds. Abdominal: General: Bowel sounds are normal. There is no distension. Palpations: Abdomen is soft. There is no mass. Tenderness: There is no abdominal tenderness. Musculoskeletal: General: Normal range of motion. Cervical back: Normal range of motion and neck supple. Lymphadenopathy: Cervical: No cervical adenopathy. Skin: General: Skin is warm and dry. Capillary Refill: Capillary refill takes less than 2 seconds. Neurological: Mental Status: She is alert and oriented to person, place, and time. Deep Tendon Reflexes: Reflexes are normal and symmetric. Psychiatric: Mood and Affect: Mood normal. Behavior: Behavior normal. Thought Content: Thought content normal. Judgment: Judgment normal. ASSESSMENT/PLAN: Italia was seen today for annual exam. Diagnoses and all orders for this visit: Annual physical exam Blood tests for routine general physical examination - Comprehensive metabolic panel; Future - CBC auto differential; Future - Lipid profile; Future - TSH; Future Other iron deficiency anemia - Iron and TIBC; Future - Vitamin B12; Future - Ferritin; Future Colonoscopy screening discussed today. Risk and benefits of procedure explained. Patient last completed by our records [address] Baxter [facility]. Recommended 5 year follow up per documents. Family history of colon cancer, mother, who from colon cancer. Our office will inquire for additional records. Patient is aware she is currently due. Mammogram is ordered by her [facility] provider. DEXA screen completed 2022. Encourage daily intake of calcium with D3 for bone health. Annual wellness labs drawn in office today. Iron panel. ALL QUESTIONS ANSWERED Total time spent was 30 minutes: Preparing to see the patient (e.g., review of tests) Obtaining and/or reviewing separately obtained history Performing a medically appropriate examination and/or evaluation Counseling and educating the patient/family/caregiver Ordering medications, tests, or procedures Follow-up: One year Annual physical RAMA Fish 04/09/24 0846 [facility] encounter[facility] Evaluation note* Encounter Date Diagnosis Assessment Notes Treatment Notes Treatment Clinical Notes Aug, Dysuria (ICD-10 - R30.0) Discussed [...] understanding and is agreeable to treatment plan listedplaces Other Evaluation noteNo assessment information available [facility] Work Phone: Evaluation note* Diagnosis Postoperative examination Follow-up examination, following unspecified surgery documented in this encounter [facility] Healthcare[facility]* Diagnosis Annual physical exam- Primary Routine general medical examination at a health care facility Blood tests for routine general physical examination Laboratory examination ordered as part of a routine general medical examination Other iron deficiency anemia documented [facility] this encounter [facility]* Diagnosis Annual physical exam- Primary Routine general medical examination at a health care facility Blood tests for routine general physical examination Laboratory examination ordered as part of a routine general medical examination Other iron deficiency anemia documented in this encounter [facility]* Diagnosis Well woman exam with routine gynecological exam Routine gynecological examination Encounter for screening mammogram for malignant neoplasm of breast Postmenopausal state Asymptomatic postmenopausal status (age-related) (natural) [facility]* Attachments The following attachments cannot be sent through Care Everywhere. * Yearly Physical for Adults (Ugandan) documented in [facility] encounterProC[facility] SystemInstructions* Attachments The following attachments cannot be sent through Care Everywhere. * Walking for health (Ugandan) * Routine physical for adults (Ugandan) [facility] in [facility] SystemReason for referral (narrative)No reason for referral information availableFulton County Health Center Work Phone: Summary Purpose Family History Relationship Condition Age at Onset Recorded Date/T grzegorz brother Unknown father Unknown Malignant neoplasm Unknown Heart disease Unknown mother Unknown Advance Directives Advance Directive Response Recorded Date/ Time Advance Directives No April 12 2 7:30pm Chief Complaint and Reason for Visit Chief Complaint Dysuria Chief Complaint Unknown Chief Complaint Admit Date Poss uti June 18, 2025 5:21 pm Reason for Visit Admit Date Flank pain June 18, 2025 5:21 pm Dysuria June 18, 2025 5:21 pm Additional Source Comments INFORMATION SOURCE (unrecogn ized section and content) DATE CREATED AUTHOR 02/03/2022 [facility] DATE CREATED AUTHOR AUTHOR'S ORGANIZ ATION 07/04/2023 [facility] DATE CREATED AUTHOR AUTHOR'S ORGANIZ ATION 04/11/2024 [facility] DATE CREATED AUTHOR AUTHOR'S ORGANIZ ATION 07/02/2024 [facility] DATE CREATED AUTHOR AUTHOR'S ORGANIZ ATION 04/27/2025 [facility] DATE CREATED AUTHOR AUTHOR'S ORGANIZ ATION 06/20/2025 [facility] Care Teams (unrecognized sec tion and content) Team Status: Inactive Member Role Status Dates Josef Portillo DO Primary Care Provider Active Paulette Marcelino NP-C Attending Provider Active Team Status: Active Member Role Status Dates Josef Portillo DO Primary Care Provider Active Team Status: Inactive Member Role Status Dates Josef Portillo DO Primary Care Provider Active Indigo Mckeon APRN Attending Provider Active Team Status: Inactive Member Role Status Dates Maryan Zimmer DO Attending Provider Active Start : July 12, 2024 End: July 12, 2024 Road Traffic Controller Relationship Specialty Start Date End Date Cristy Ricardo MD [address] [place] [address] PCP - General Family Medicine 05/28/24 Road Traffic Controller Relationship Specialty Start Date End Date Cristy Ricardo MD [address] [place] [address] PCP - General Family Medicine 05/28/24 Road Traffic Controller Relationship Specialty Start Date End Date Paulette Marcelino APRN-PAROLE BOARD MEMBER [address], [facility] [place] [address] PCP - General Family Medicine 11/13/17 Road Traffic Controller Relationship Specialty Start Date End Date Paulette Marcelino, YUE-PAROLE BOARD MEMBER [address] [place] [address] PCP - General Family Medicine 11/13/17 Team Status: Active Member Role Status Dates PHYSICIAN NO FAMILY Primary Care Provider Active Team Status: Inactive Member Role Status Dates Annika Naidu APRN Attending Provider Active S tart: June 18, 2025 End: June 18, 2025 PHYSICIAN NO FAMILY Primary Care Provider Active Start: June 18, 2025 End: June 18, 2025 Team Status: Inactive Member Role Status Dates Annika Naidu APRN Attending Provider Active S tart: June 18, 2025 End: June 18, 2025 Road Traffic Controller Relationship Specialty Start Date End Date Cristy Ricardo MD [address] [facility] [place] [address] PCP - General Family Medicine 05/28/24 Road Traffic Controller Relationship Specialty Start Date End Date Cristy Ricardo MD [address] [place] [address] PCP - General Family Medicine 05/28/24 Goals (unrecognized section and content) Goals may be documented in a n alternate sectionNo InformationGoals may be documented in an alternate sectionGoals may be documented in an alternate sectionNot on filedocumented as of this encounterNot on filedocumented as of this encounterGoals may be documented in an alternate sectionGoals may be documented in an alternate section REASON FOR VISIT (unrecogniz ed section and content) Reason Comments Post-op Visit Reason Comments Annual Exam Reason Comments Well Women Visit FOR RECORDS PERTAINING TO PATIENTS WHO ARE [...] BE BASED ON THE PRIMARY CLINICAL RECORDS. [facility]. provides no warranty or guarantee of the accuracy or completeness of information in this document.
[2025-07-17 15:08] LABS: Age Gdln ACOG Testing Note (.); IGP, Aptima HPV, rfx 16/18,45 Note (.)
== END 2025-07-14 19:24 | disposition home or self-care (01) ==
LOC: LAB 19:23
PROVIDERS: PCP Nurse Practitioner; Visit Provider Obstetrics & Gynecology
DX: Z01.419 Encounter for gynecological examination (general) (routine) without abnormal findings (principal)
CPT/HCPCS: 87624; 88175

== ENCOUNTER 2025-08-08 07:19 | Outpatient (OUT) | payer BC, SELFPAY ==
--- OUTSIDE RECORDS SUMMARY | 2025-08-08 07:23 | XMS_ITS | Encounter Summary ---
Author Organization [facility] Address [address] [facility] [place] [address] Care Team Providers Care Electronic Technician Name Role Phone Cristy Ricardo MD Primary Care Provider [phone] Marian Wheatley Unavailable Encounter Details Date Type Department Care Team (Late Contact Info) Description 07/23/2024 Abstract [facility] [address] [facility] [place] [address] Harvey Zimmer DO [address] [facility] [address] [place] [id number] Social History Tobacco Use Types Packs/Day Years Used Date Smoking Tobacco: Never Assessed Comments No Sex and Gender Information Value Date Recorded Sex Assigned at Not on file Legal Sex Female 7:10 PM EDT Gender Identity Not on file Sexual Orientation Not on file documented as of this encounter Plan of Treatment Upcoming Encounters Date Type Department Care Team (Late Contact Info) Description 07/16/2026 9:00 AM EDT Procedure Visit [facility] [address] [place] [address] Marian Wheatley PA [address] [facility] [address] [place], [facility]11 documented as of this encounter Visit Diagnoses Not on filedocumented in this encounter Care Teams Electronic Technician Relationship Specialty Start Date End Date Cristy Ricardo MD [address] [place] [address] PCP - General Family Medicine 05/28/24 Marian Wheatley PA [address] [facility] [address] [place], [facility]11 PCP - Medical [place] [employer] 11/27/17 06/19/25 documented as of this encounter
--- OUTSIDE RECORDS SUMMARY | 2025-08-08 07:23 | XMS_ITS | Encounter Summary ---
Author Organization [facility] Address [address] [facility] [place] [address] Care Team Providers Care [employer] Special Education Teacher Name Role Phone Cristy Ricardo MD Primary Care Provider [phone] Marian Wheatley Unavailable Encounter Details Date Type Department Care Team (Late Contact Info) Description 07/19/2024 Abstract [facility] [address] [facility] [place] [address] Harvey Zimmer DO [address] [facility] [address] [place] [id number] Social History Tobacco Use Types Packs/Day Years [...] AM EDT Procedure Visit [facility] [address] [place] [address] Marian Wheatley PA [address] [facility] [address] [place], [facility]11 documented as of this encounter Visit Diagnoses Not on filedocumented in this encounter Care Teams [employer] Special Education Teacher Relationship Specialty Start Date End Date Cristy Ricardo MD [address] [place] [address] PCP - General Family Medicine 05/28/24 Marian Wheatley PA [address] [facility] [address] [place], [facility]11 PCP - Medical [place] [employer] 11/27/17 06/19/25 documented as of this encounter
--- OUTSIDE RECORDS SUMMARY | 2025-08-08 07:23 | XMS_ITS | Encounter Summary ---
Author Organization [facility] Address [address] [facility] [place] [address] Care Team Providers Care School Speech Therapist Name Role Phone Cristy Ricardo MD Primary Care Provider [phone] Marian Wheatley Unavailable Encounter Details Date Type Department Care Team (Late Contact Info) Description 07/16/2024 Abstract [facility] [address] [facility] [place] [address] Harvey Zimmer DO [address] [facility] [address] [place]iny [place] [id number] Social History Tobacco Use Types Packs/Day Years [...] AM EDT Procedure Visit [facility] [address] [place] [address] Marian Wheatley PA [address] [facility] [address] [place], [facility]11 documented as of this encounter Visit Diagnoses Not on filedocumented in this encounter Care Teams School Speech Therapist Relationship Specialty Start Date End Date Cristy Ricardo MD [address] [place] [address] PCP - General Family Medicine 05/28/24 Marian Wheatley PA [address] [facility] [address] [place], [facility]11 PCP - Medical [place] Commercial 11/27/17 06/19/25 documented as of this encounter
--- OUTSIDE RECORDS SUMMARY | 2025-08-08 07:23 | XMS_ITS | Encounter Summary ---
Author Organization [facility] Address [address] [facility] [place] [address] Care Team Providers Care Bale Coverer Name Role Phone Cristy Ricardo MD Primary Care Provider [phone] Marian Wheatley Unavailable Encounter Details Date Type Department Care Team (Late st Contact Info) Description 07/10/2024 Orders Only [facility] [address] [place] [address] [place] [address] Deb Conteh LPN Social History Tobacco Use Types Packs/Day Years Used Date Smoking Tobacco: Never Assessed Comments No Sex and Gender Information Value Date Recorded Sex Assigned at Not on file Legal Sex Female 7:10 PM EDT Gender Identity Not on file Sexual Orientation Not on file documented as of this encounter Plan of Treatment Upcoming Encounters Date Type Department Care Team (Late st Contact Info) Description 07/16/2026 9:00 AM EDT Procedure Visit [facility] [address] [place] [address] [place] [address] Marian Wheatley PA [address] [facility] [address] [place], [facility]11 documented as of this encounter Procedures Procedure Name Priority Date/Time Associated Diagnosis Comments PAP SMEAR Routine 07/01/2024 12:00 AM EDT documented in this encounter Results * Pap Smear (07/01/2024 12:00 AM EDT) Swab Cervical swab / Unknown Marian [facility] ORDERABLES Final Re sult EXTERNAL LAB documented in this encounter Visit Diagnoses Not on filedocumented in this encounter Care Teams Bale Coverer Relationship Specialty Start Date End Date Cristy Ricardo MD [address] [place] [address] PCP - General Family Medicine 05/28/24 Marian Wheatley PA [address] [place] [address] [place] [address] PCP - Medical [place] Commercial 11/27/17 06/19/25 documented as of this encounter
--- OUTSIDE RECORDS SUMMARY | 2025-08-08 07:23 | XMS_ITS | Encounter Summary ---
Author Organization [facility] Address [address] [facility] [place] [address] Care Team Providers Care Analytical Clerk Name Role Phone Cristy Ricardo MD Primary Care Provider [phone] Marian Wheatley Unavailable Encounter Details Date Type Department Care Team (Late Contact Info) Description 07/26/2024 Abstract [facility] [address] [facility] [address] Harvey Zimmer DO [address] [facility] [address] [place] [phone] Social History Tobacco Use Types Packs/Day Years [...] AM EDT Procedure Visit [facility]IN [facility] [address] [place] [address] Marian Wheatley PA [address] [facility] [address] [place], [facility]11 documented as of this encounter Visit Diagnoses Not on filedocumented in this encounter Care Teams Analytical Clerk Relationship Specialty Start Date End Date Cristy Ricardo MD [address] [place] [address] PCP - General Family Medicine 05/28/24 Marian Wheatley PA [address] [facility] [address] [place], [facility]11 PCP - Medical [place] [employer] 11/27/17 06/19/25 documented as of this encounter
--- OUTSIDE RECORDS SUMMARY | 2025-08-08 07:23 | XMS_ITS | Encounter Summary ---
Author Organization [facility] Address [address] [facility] [place] [address] Care Team Providers Care Creative Writing English Professor Name Role Phone Cristy Ricardo MD Primary Care Provider [phone] Marian Wheatley Unavailable Encounter Details Date Type Department Care Team (Late Contact Info) Description 07/23/2024 Abstract [facility] [address] [facility] [place] [address] Harvey Zimmer DO [address] [facility] [address] [place] [phone] Social History Tobacco Use Types Packs/Day Years [...] AM EDT Procedure Visit JAC[facility]IN [facility] [address] [place] [address] Marian Wheatley PA [address] [facility] [address] [place], [facility]11 documented as of this encounter Visit Diagnoses Not on filedocumented in this encounter Care Teams Creative Writing English Professor Relationship Specialty Start Date End Date Cristy Ricardo MD [address] [place] [address] PCP - General Family Medicine 05/28/24 Marian Wheatley PA [address] [facility] [address] [place], [facility]11 PCP - Medical [place] [employer] 11/27/17 06/19/25 documented as of this encounter
--- OUTSIDE RECORDS SUMMARY | 2025-08-08 07:23 | XMS_ITS | Encounter Summary ---
Author Organization [facility] Address [address] [facility] [place] [address] Care Team Providers Care Dispatcher Radio Name Role Phone Cristy Ricardo MD Primary Care Provider [phone] Marian Wheatley Unavailable Encounter Details Date Type Department Care Team (Late Contact Info) Description 07/04/2024 Abstract [facility] [address] [facility] [place] [address] Harvey Zimmer DO [address] [facility] [address] [place] [phone] Social History Tobacco Use Types Packs/Day Years [...] AM EDT Procedure Visit [facility]AC[facility]IN [facility] [address] [place] [address] Marian Wheatley PA [address] [facility] [address] [place], [facility]11 documented as of this encounter Visit Diagnoses Not on filedocumented in this encounter Care Teams Dispatcher Radio Relationship Specialty Start Date End Date Cristy Ricardo MD [address] [place] [address] PCP - General Family Medicine 05/28/24 Marian Wheatley PA [address] [facility] [address], [facility]11 PCP - Medical [place] [employer] 11/27/17 06/19/25 documented as of this encounter
--- OUTSIDE RECORDS SUMMARY | 2025-08-08 07:23 | XMS_ITS | Patient Health Record ---
Author Organization [facility] Address [address] [place] [address] Care Team Providers Care Hydroelectric Station Operator Name Role Phone TAO WITT Unavailable Allergies No Known Allergies Reason For Referral No Information Medications Medication SIG (Take, Route, Frequency, Duration) Notes Start Date End Date Status Probiotic Active Vitamin C Active Vitamin D Active Plan Of Treatment Pending Test Test Name Order Date LAB UA Test 11/22/2021 Insurance Providers Payer Name Payer Address Payer Phone Subscriber Number Group Number Insured Name Patient Relationship to Insured Coverage Start Date Coverage End Date [facility] [address] [place] [address] [id number] Catarino Jensen Spouse - patient is the spouse of the insured Medical (General) History Surgical History Surgery Date(Month/Year) R colon resection partial hysterectomy Hospitalization History Reason Date(Month/Year) 3 childbirth see surgical hx
--- OUTSIDE RECORDS SUMMARY | 2025-08-08 07:24 | XMS_ITS | Encounter Summary ---
Author Organization [facility] Address [address] [facility] [place] [address] Care Team Providers Care Agile Developer Name Role Phone Cristy Ricardo MD Primary Care Provider [phone] Marian Wheatley Unavailable Encounter Details Date Type Department Care Team (Late Contact Info) Description 07/26/2024 Abstract [facility] [address] [facility] [place] [address] Harvey Zimmer DO [address] [facility] [address] [place] [id number] Social History Tobacco Use Types Packs/Day Years [...] AM EDT Procedure Visit JACQUELIN ORTI[facility] [address] [place] [address] Marian Wheatley PA [address] [facility] [address] Hernandez, [id number] documented as of this encounter Visit Diagnoses Not on filedocumented in this encounter Care Teams Agile Developer Relationship Specialty Start Date End Date Cristy Ricardo MD [address] [place] [address] PCP - General Family Medicine 05/28/24 Marian Wheatley PA [address] [facility] [address], [id number] PCP - Medical [place] [employer] 11/27/17 06/19/25 documented as of this encounter
--- OUTSIDE RECORDS SUMMARY | 2025-08-08 07:24 | XMS_ITS | Encounter Summary ---
Author Organization [facility] [employer] Sys [facility] Address [id number] [address] [place] [address] Care Team Providers Care Lens Examiner Name Role Phone Nash Neal Hudson TURNER-BLUEPRINT TRACER Primary Care Provider + Encounter Details Date Type Department Care Team (Late Contact Info) Description 07/05/2023 Orders Only [facility] - Family Medicine [address] [place] [address] Laura Bridges MA Other iron deficiency anemia Social History Tobacco Use Types Packs/Day Years Used Date Smoking Tobacco: Former Cigarettes Q uit: 2007 Smokeless Tobacco: Never Alcohol Use Standard Drinks/Week Comments Yes 0 (1 standard drink = 0.6 oz pur e alcohol) socailly PHQ-2 Answer Date Recorded Total Score 0 05/03/2023 Childcare Answer Date Recorded Childcare Unknown 05/08/2019 Employment Answer Date Recorded Employment Unknown 05/08/2019 Hunger Screening Answer Date Recorded Within the past 12 months we worried whether our food would run out before we got money to buy more. Never True 05/03/2023 Within the past 12 months th e food we bought just didn't last and we didn't have money to get more. Never True 05/03/2023 Purpose - Life Answer Date Recorded Purpose and direction in life Unknown Comments No Sex and Gender Information Value Date Recorded Sex Assigned at Not on file Legal Sex Female 11:31 AM EDT Gender Identity Not on file Sexual Orientation Not on file documented as of this encounter Plan of Treatment Upcoming Encounters Date Type Department Care Team (Late Contact Info) Description 04/21/2026 7:00 AM EDT Office Visit [facility] - Family Medicine [address] [place] [address] Nash Neal, SPONSORSHIP COORDINATOR-BLUEPRINT TRACER [address], [address] [address] documented as of this encounter Procedures Procedure Name Priority Date/Time Associated Diagnosis Comments IRON AND TIBC Routine 07/03/2023 Other iron deficiency anemia documented in this encounter Results * Iron and TIBC (07/03/2023) Iron Saturation 22 SUNQUEST Iron 73 SUNQUEST Tibc-calc only do not order 334 SUNQUEST Blood 07/03/2023 us Pamela Marcelino APRN-BLUEPRINT TRACER LAB BLOOD ORDERABLES Final Result [place] documented in this encounter Visit Diagnoses Diagnosis Other iron deficiency anemia documented in this encounter Additional Health Concerns Assessment Noted Time PHQ-9 Depression Total Score: 0 05/03/20 23 4:12 PM EDT A Body Mass Index follow-up plan has been documented for the patient 11/23/2022 8:35 AM EST documented as of this encounter Care Teams Lens Examiner Relationship Specialty Start Date End Date Nash Neal, SPONSORSHIP COORDINATOR-BLUEPRINT TRACER [address] [place] [address] PCP - General Internal Medicine 06/23/25 documented as of this encounter
--- OUTSIDE RECORDS SUMMARY | 2025-08-08 07:24 | XMS_ITS | Encounter Summary ---
Author Organization [employer] Sys [employer] Address [id number] [address] [place] [address] Care Team Providers Care Senior Software Analyst Name Role Phone Nash Neal Hudson TURNER-ENGINE ASSEMBLER Primary Care Provider + Encounter Details Date Type Department Care Team (Late Contact Info) Description 03/23/2022 Orders Only [facility] [address] [place] [address] External, Scanning Provider Social History Tobacco Use Types Packs/Day Years Used Date Smoking Tobacco: Never Smokeless Tobacco: Never Alcohol Use Standard Drinks/Week Comments Yes 0 (1 standard drink = 0.6 oz pur e alcohol) socailly PHQ-2 Answer Date Recorded Total Score 0 03/23/2022 Childcare Answer Date Recorded Childcare Unknown 05/08/2019 Employment Answer Date Recorded Employment Unknown 05/08/2019 Purpose - Life Answer Date Recorded Purpose and direction in life Unknown Comments No Sex and Gender Information Value Date Recorded Sex Assigned at Not on file Legal Sex Female 11:31 AM EDT Gender Identity Not on file Sexual Orientation Not on file COVID-19 Exposure Response Date Recorded In the last 10 days, have yo u been in contact with someone who was confirmed or suspected to have Coronavirus/COVID-19? No / Unsure 03/23/2022 7:55 AM EDT documented as of this encounter Plan of Treatment Upcoming Encounters Date Type Department Care Team (Late Contact Info) Description 04/21/2026 7:00 AM EDT Office Visit [facility] - Family Medicine [address] [place] [address] Nash Neal, FREIGHT SORTER-ENGINE ASSEMBLER [address], [address] [place] [address] documented as of this encounter Procedures Procedure Name Priority Date/Time Associated Diagnosis Comments DIABETES EYE EXAM Routine 03/23/2022 MAMMOGRAPHY Routine 03/23/2022 documented in this encounter Results * HM DIABETES EYE EXAM (03/23/2022) us Scanning Provider External HEALTH MAINTENANCE Fi nal Result MANUALLY TRANSCRIBED RESULTS * MAMMOGRAPHY (03/23/2022) Anatomical Region Laterality Modality Other us Scanning Provider External HEALTH MAINTENANCE Fi nal Result documented in this encounter Visit Diagnoses Not on filedocumented in this encounter Additional Health Concerns Assessment Noted Time PHQ-9 Depression Total Score: 0 03/23/20 22 8:01 AM EDT A Body Mass Index follow-up plan has been documented for the patient 03/23/2022 9:38 AM EDT documented as of this encounter Care Teams Senior Software Analyst Relationship Specialty Start Date End Date Nash Neal, FREIGHT SORTER-ENGINE ASSEMBLER [address] [place] [address] PCP - General Internal Medicine 06/23/25 documented as of this encounter
--- OUTSIDE RECORDS SUMMARY | 2025-08-08 07:24 | XMS_ITS | Encounter Summary ---
Author Organization [employer] [facility] tem Address [id number] [address] [place] [address] Care Team Providers Care Take Out Waitress Name Role Phone Nash Neal APRN-NIGHT CUSTODIAN Primary Care Provider + Encounter Details Date Type Department Care Team (Late Contact Info) Description 01/31/2022 Orders Only [facility] [address] [place] [address] [place] [phone] Laura Bridges MA Blood tests for routine general physical examination; Iron deficiency anemia, unspecified iron deficiency anemia type Social History Tobacco Use Types Packs/Day Years Used Date Smoking Tobacco: Never Smokeless Tobacco: Never Alcohol Use Standard Drinks/Week Comments Yes 0 (1 standard drink = 0.6 oz pur e alcohol) socailly PHQ-2 Answer Date Recorded Total Score 0 12/02/2021 Childcare Answer Date Recorded Childcare Unknown 05/08/2019 [...] Care Team (Late st Contact Info) Description 04/21/2026 7:00 AM EDT Office Visit [facility] - Family Medicine [address] [place] [phone] Nash Neal, HUMAN RESOURCES CLERK-NIGHT CUSTODIAN [address] [address] documented as of this encounter Procedures Procedure Name Priority Date/Time Associated Diagnosis Comments CBC WITH AUTO DIFFERENTIAL Routine 01/28/2022 Blood tests for routine general physical examination IRON Routine 01/28/2022 Iron deficiency anemia, unspecified iron deficiency anemia type LIPID PROFILE Routine 01/28/2022 Blood tests for routine general physical examination COMPREHENSIVE METABOLIC PANEL Routine 01/28/2022 Blood tests for routine general physical examination documented in this encounter Results * Iron level (01/28/2022) Iron 55.0 SUNQUEST Blood [facility]/28/2022 [facility] BLOOD ORDERABLES Final Result Performing Organization Address [facility]/ZIP Co de Phone Number SUNQUEST * Lipid profile (01/28/2022) External Cholesterol 221 [facility]QUEST External Hdl Cholesterol 114 [facility]QUEST External Ldl (Calc) 101.2 [facility] External Triglycerides 29 [facility]QUEST External Very Low Lipoprotein 5.8 SUNQUEST 01/28/2022 [facility] LAB BLOOD ORDERABLES Final Result Performing Organization Address [facility]/State/ZIP Co de Phone Number SUNQUEST * Comprehensive metabolic panel (01/28/2022) External Albumin 3.9 [facility]QUEST External Alt Sgpt 25 [facility]QUEST External Anion Gap 12.2 [facility]QUEST External Ast 21 [facility]QUEST External Blood Urea Nitrogen Bun 17.0 [facility] External Calcium Ca 8.8 [facility] External Chloride 104 [facility]QUEST External Co2 / Carbon Dioxide 27.1 [facility] External Creatinine 0.81 [facility] External Gfr Amer >60 [facility]QUEST External Gfr Non Amer >60 [facility]QUEST External Glucose Fasting Or Random (Fbs) 100 [facility]QUEST External Potassium K 4.3 [facility] External Sodium Na 139 SUNQUEST Total Bilirubin 0.3 SUNQUEST External Total Protein 7.4 SUNQUEST 01/28/[address] [facility] [facility] ORDER[facility] Final Result SUNQUEST * CBC auto differential (01/28/2022) Pathologist [facility] External Wbc Count 4.0 SUNQUEST External Rbc Count 4.40 SUNQUEST External Hemoglobin 12.1 [facility]QUEST External Hematocrit Hct 37.7 [facility]QUEST External Mcv 85.7 [facility]QUEST External MCH 27.5 SUNQUEST External Mchc 32.1 SUNQUEST External Rdw 12.8 [facility]QUEST External Platelet Count 313 SUNQUEST External Mpv 9.3 SUNQUEST 01/28/2022 Pamela Marcelino HUMAN RESOURCES CLERKBA[facility] LAB BLOOD ORDERABLES Final Result Performing Organization Address City/[facility] Co de Phone Number ALESSANDRO documented in this encounter Visit Diagnoses Diagnosis Blood tests for routine general physical examination Laboratory examination ordered as part of a routine general medical examination Iron deficiency anemia, unspecified iron deficiency anemia type documented in this encounter Additional Health Concerns Assessment Noted Time PHQ-9 Depression Total Score: 0 12/02/19 22 8:38 AM EST A Body Mass Index follow-up plan has been documented for the patient 12/06/2021 3:29 PM EST documented as of this encounter Care Teams Take Out Waitress Relationship Specialty Start Date End Date Nash Neal, HUMAN RESOURCES CLERK-NIGHT CUSTODIAN [address] [place] [address] PCP - General Internal Medicine 06/23/25 documented as of this encounter
--- OUTSIDE RECORDS SUMMARY | 2025-08-08 07:24 | XMS_ITS | Encounter Summary ---
Author Organization [facility] tem Address [id number] [address] [place] [address] Care Team Providers Care Disease Management Nurse Name Role Phone Nash Neal APRN-TREE DRILLER Primary Care Provider + Encounter Details Date Type Department Care Team (Late Contact Info) Description 04/11/2022 Orders Only [facility] [address] [place] [address] [place] [address] Carley Rosales, SEED ANALYST Left forearm pain; Elbow pain, left Social History Tobacco Use Types Packs/Day Years Used Date Smoking Tobacco: Never Smokeless Tobacco: Never Alcohol Use Standard Drinks/Week Comments Yes 0 (1 standard drink = 0.6 oz pur e alcohol) socailly PHQ-2 Answer Date Recorded Total Score 0 04/11/2022 Childcare Answer Date Recorded Childcare Unknown 05/08/2019 [...] suspected to have Coronavirus/COVID-19? No / Unsure 04/13/2022 12:29 PM EDT documented as of this encounter Plan of Treatment Upcoming Encounters Date Type Department Care Team (Late Contact Info) Description 04/21/2026 7:00 AM EDT [facility] [address] [place] [address] Nash Neal, DETECTIVE PRIVATE EYE-TREE DRILLER [address], [facility] [address] [place] [address] documented as of this encounter Procedures Procedure Name Priority Date/Time Associated Diagnosis Comments XR FOREARM LT 2 VWS Routine 04/11/2022 2:04 PM ED T Left forearm pain documented in this encounter Results * X-ray forearm left 2 views (04/11/2022 2:04 PM EDT) Anatomical Region Laterality Modality Upper Extremities, MSK, Forearm Left Computed Radiography us Pamela Marcelino APRN-PAMELA IMG DIAGNOSTIC IMAGI NG ORDERABLES Final Result documented in this encounter Visit Diagnoses Diagnosis Left forearm pain Elbow pain, left Pain in joint, upper arm documented in this encounter Additional Health Concerns Assessment Noted Time PHQ-9 Depression Total Score: 0 04/11/20 22 9:36 AM EDT A Body Mass Index follow-up plan has been documented for the patient 03/23/2022 9:38 AM EDT documented as of this encounter Care Teams Disease Management Nurse Relationship Specialty Start Date End Date Nash Neal, YUE-TREE DRILLER [address] [place] [place] [address] PCP - General Internal Medicine 06/23/25 documented as of this encounter
--- OUTSIDE RECORDS SUMMARY | 2025-08-08 07:24 | XMS_ITS | Encounter Summary ---
Author Organization [facility] Address [address] [facility] [place] [address] Care Team Providers Care Media Job Titles Name Role Phone Cristy Ricardo MD Primary Care Provider [phone] Encounter Details Date Type Department Care Team (Late st Contact Info) Description 07/18/2025 Orders Only [facility] [address] [place] [address] [place] [address] Brittney Hernandez MA Social History Tobacco Use Types Packs/Day Years [...] 9:00 AM EDT Procedure Visit [facility] [address] [place] [address] [place] [phone] Marian Wheatley PA [address] [facility] [address] [place], [facility] documented as of this encounter Procedures Procedure Name Priority Date/Time Associated Diagnosis Comments PAP SMEAR Routine 07/14/2025 12:00 AM EDT documented in this encounter Results * Pap Smear (07/14/2025 12:00 AM EDT) Swab Cervical swab / Unknown us Harvey Mesha DO LAB CYTOLOGY ORDERABLES Final Re sult EXTERNAL LAB documented in this encounter Visit Diagnoses Not on filedocumented in this encounter Care Teams Media Job Titles Relationship Specialty Start Date End Date Cristy Ricardo MD [address] [place] [address] PCP - General Family Medicine 05/28/24 documented as of this encounter
--- OUTSIDE RECORDS SUMMARY | 2025-08-08 07:24 | XMS_ITS | Encounter Summary ---
Author Organization [facility] Address [address] [facility] [place] [address] Care Team Providers Care Clinical Aide Name Role Phone Cristy Ricardo MD Primary Care Provider [phone] Marian Wheatley Unavailable Encounter Details Date Type Department Care Team (Late st Contact Info) Description 04/30/2024 Clinisync Result Encounter [facility] External Department Unsolicited Maryan Zimmer DO [address] [facility] [address] [place] [phone] Social History Tobacco Use Types Packs/Day Years [...] 07/16/2026 9:00 AM EDT Procedure Visit JACQUELIN Wolf OBSOFÍA [address] [facility] [place] [phone] Marian Wheatley PA [address] [facility] [address] [place], [facility] documented as of this encounter Procedures Procedure Name Priority Date/Time Associated Diagnosis Comments US PELVIS W/ TRANSVAGINAL 04/30/2024 9:37 AM EDT documented in this encounter Results * US PELVIS W/ TRANSVAGINAL (04/30/2024 9:37 AM EDT) Anatomical Region Laterality Modality Other 04/30/2024 9:37 AM EDT Narrative 04/30/2024 9:39 AM EDT [address] [address] Ultrasound Report Signed Patient: ITALIA JENSEN MR#: [id number] : 1965 Acct:[id number] Age/Sex: 59 / F ADM Date: 04/30/24 Loc: [facility] Attending Dr: Maryan Zimmer D.O. Ordering Physician: Maryan Zimmer D.O. Date of Service: 04/30/24 Procedure(s): US pelvis w/ transvaginal Accession Number(s): [id number] cc: PAULETTE CHAIDEZ ; Maryan Zimmer D.O. [address] [address] Patient Name: ITALIA JENSEN MRN: [id number] date: 1965 Sex: F Assigned Patient Location: [facility] Current Patient Location: [facility] Accession/Order Number: [id number] Exam Date: 04/30/2024 08:25 Report Date: 04/30/2024 09:37 At the request of: MARYAN ZIMMER Procedure: US pelvis w/ transvaginal EXAMINATION: US pelvis w/ transvaginal HISTORY: RIGHT OVARIAN CYST follow-up COMPARISON: CT abdomen pelvis 04/22/2024 TECHNIQUE: Transabdominal and/or transvaginal sonographic examination was performed as indicated by examination type. FINDINGS: UTERUS: Hysterectomy. RIGHT OVARY: Contains an anechoic simple appearing 5.3 cm cyst. Duplex Doppler demonstrates normal waveform and flow; resistive index 0.7. Ovary size: 6.7 x 5.4 x 5.5 cm LEFT OVARY: Not seen. CUL-DE-SAC: Unremarkable. No significant free fluid. BLADDER: Unremarkable. OTHER: None. US/US pelvis w/ transvaginal IMPRESSION: 1. Within the right ovary is a benign-appearing 5.3 cm cyst which corresponds to prior CT findings. Consider follow-up ultrasound evaluation in 6 weeks to document regression. Electronically authenticated by: TIEN LIRA Date: 04/30/2024 09:37 Dictated By: Tien Lira M.D. Signed By: 04/30/24 0939 DD/ TD/TT: Night Supervisor: Procedure Note Radiology, Radiologist, - 04/30/2024 [facility] [place] [id number] Ultrasound Report Signed Patient: ITALIA JENSEN LMR#: [id number] : 1965Acct:[id number] Age/Sex: 59 / FADM Date: 04/30/24 Loc: [facility] Attending Dr: Maryan Zimmer D.O. Ordering Physician: Maryan Zimmer D.O. Date of Service: 04/30/24 Procedure(s): US pelvis w/ transvaginal Accession Number(s): [id number] cc: PAULETTE CHAIDEZ ; Maryan Zimmer D.O. [facility] [place] [id number] Patient Name: ITALIA JENESN MRN: [id number] date: 1965 Sex: F Assigned Patient Location: [facility] Current Patient Location: [facility] Accession/Order Number: [id number] Exam Date: 04/30/2024 08:25 Report Date: 04/30/2024 09:37 At the request of: MARYAN ZIMMER Procedure: US pelvis w/ transvaginal EXAMINATION: US pelvis w/ transvaginal HISTORY: RIGHT OVARIAN CYST follow-up COMPARISON: CT abdomen pelvis 04/22/2024 TECHNIQUE: Transabdominal and/or transvaginal sonographic examination was performed as indicated by examination type. FINDINGS: UTERUS: Hysterectomy. RIGHT OVARY: Contains an anechoic simple appearing 5.3 cm cyst. DuplexDoppler demonstrates normal waveform and flow; resistive index 0.7. Ovary size:6.7 x 5.4 x 5.5 cm LEFT OVARY: Not seen. CUL-DE-SAC: Unremarkable. No significant free fluid. BLADDER: Unremarkable. OTHER: None. US/US pelvis w/ transvaginal IMPRESSION: 1. Within the right ovary is a benign-appearing 5.3 cm cyst whichcorresponds to prior CT findings. Consider follow-up ultrasound evaluation in 6 weeksto document regression. Electronically authenticated by: TIEN LIRA Date: 04/30/2024 09:37 Dictated By: Tein Lira M.D. Signed By:04/30/24938 DD/ 6 TD/TT: Night Supervisor: us Maryan Mesha DO [facility] Final Result documented in this encounter Visit Diagnoses Not on filedocumented in this encounter Care Teams Clinical Aide Relationship Specialty Start Date End Date Cristy Ricardo MD [address] [place] [address] PCP - General Family Medicine 05/28/24 Marian Wheatley PA [address] [place] [address] [place] [address] PCP - Medical [place] [employer] 11/27/17 06/19/25 documented as of this encounter
--- OUTSIDE RECORDS SUMMARY | 2025-08-08 07:24 | XMS_ITS | Clinical Summary ---
Author Organization [facility] Address [address] [place] [address] Care Team Providers Care Cloth Carrier Name Role Phone Cristy Ricardo MD Primary Care Provider [phone] Allergies No known active allergies Medications ferrous sulfate 325 (65 Fe) MG tablet 1 (one) time each day at the same time Active b complex vitamins capsule Take 1 capsule by mouth Daily Active MAGNESIUM 4 MUSCLES Magnesium Active diclofenac (Voltaren) 50 MG EC tablet take 1 tablet by mouth every 12 hours if needed for pain 4 Active ascorbic acid (Vitamin C) 500 MG tablet Active acetaminophen (Tylenol) 325 MG tablet every 4 (four) hours Active Cholecalciferol (Vitamin D3) 1000 units capsule Vitamin D3 1000 Acti ve ascorbic acid (Vitamin C) 100 MG chewable tablet Vitamin C Active Bacillus Coagulans-Inuli n (Probiotic) 1-250 BILLION-MG capsule Probiotic Active Pediatric Multivitamins-F l (MultiVitamin + Fluoride) 0.25 MG chewable tablet Multivitamin A ctive Encounters Date Type Department Care Team Description 07/18/2025 Orders Only [facility] [address] [place] [address] Brittney Hernandez MA 07/14/2025 2:30 PM EDT Office Visit [facility] [address] [place] [address] Marian Wheatley PA Well woman exam with routine gynecological exam; Encounter for screening mammogram for malignant neoplasm of breast; Postmenopausal state 07/14/2025 Clinisync Result Encounter [facility] External Department Unsolicited Harvey Zimmer DO 07/14/2025 Bamboo flowsheet [facility] [address] [facility] [place] [phone] Marian Wheatley PA from Last 3 Months Family History Medical History Relation Name Comments Heart disease Father Multiple myeloma Father Colon cancer Mother Relation Name Status Comments Father Mother Social History Tobacco Use Types Packs/Day Years Used Date Smoking Tobacco: Never Assessed Comments No Sex and Gender Information Value Date Recorded Sex Assigned at Not on file Legal Sex Female 7:10 PM EDT Gender Identity Not on file Sexual Orientation Not on file Last Filed Vital Signs Vital Sign Reading Time Taken Comments Blood Pressure 118/70 07/14/2025 2:36 PM EDT Pulse 65 06/02/2024 10:37 AM EDT Temperature 36.5 C (97.7 F) 06/02/2024 10:37 AM EDT Respiratory Rate - - Oxygen Saturation 99% 06/02/2024 10:37 AM EDT Inhaled Oxygen Concentration - - Weight 68.8 kg (151 lb 12 oz) 07/14/2025 2:36 PM EDT Height 167.6 cm (5' 6 ) 07/25/2024 2:19 PM EDT Body Mass Index 24.49 07/25/2024 2:19 PM EDT Plan of Treatment Upcoming Encounters Date Type Department Care Team (Late st Contact Info) Description 07/16/2026 9:00 AM EDT Procedure Visit [facility] [address] [facility] [place] [phone] Marian Wheatley PA [address] [facility] [place] [address] Health Maintenance Due Date Last Done Comments CT Colonography 1965 Colonoscopy 1965 Colorectal Cancer Screening 1965 FIT-DNA 1965 FIT 1965 FOBT 1965 Sigmoidoscopy 1965 Mammogram 05/29/2025 05/29/2024, 01/26, 01/28/2022, Additional history exists Influenza Vaccine (#1) 2025 HPV/Cotest Discontinued 11/16/2020 Cervical Cancer Screening Discontinued Pap Smear Discontinued 07/14/2025, 07/01/2024, 11/29 Procedures Procedure Name Priority Date/Time Associated Diagnosis Comments IGP,APTIMA HPV,AGE GDLN Routine 07/14/2025 2:25 PM EDT PAP SMEAR Routine 07/14/2025 12:00 AM EDT BI MAMMOGRAM SCREENING TOMOSYNTHESIS BILATERAL Routine 05/29/2024 9:24 AM EDT Breast cancer screening by mammogram THINPREP TIS PAP REFLEX HPV MRNA E6/E7 (29314) Routine 11/16/2020 from Last 3 Months or Most Recently Relevant to Health Maintenance Results * IGP,APTIMA HPV,AGE GDLN (07/14/2025 2:25 PM EDT) Pathologist [facility] AGE GDLN ACOG TESTING Note . [facility] Comment: TESTS RESULT FLAG UNITS REF RANGE LAB Clinician Provided Cytology Information Source.............Vagina No. of containers..01 ThinPrep Vial Age Algo ACOG Malena... 30-65 01 FLAG LEGEND: L-Low Normal,H-High Normal,LL-Alert Low,HH-Alert High <-Panic Low,>-Panic High,A-Abnormal,AA-Critical Abnormal Performed at: 01 =[facility] [address] Usha Crain MD, IGP, APTIMA HPV, RFX 16/18,45 Note . [facility] Comment: TESTS RESULT FLAG UNITS REF RANGE LAB DIAGNOSIS: 02 NEGATIVE FOR INTRAEPITHELIAL LESION OR MALIGNANCY. CELLULAR CHANGES ASSOCIATED WITH ATROPHY ARE PRESENT. Specimen adequacy: 02 Satisfactory for evaluation. Areas of partially obscuring inflammatory exudate are present. Performed by: 02 Liv Jarrell, Supervisory Electric Train Driver ([facility]) . 02 Note: Note 02 The Pap smear is a screening test designed to aid in the detection of premalignant and malignant conditions of the uterine cervix. It is not a diagnostic procedure and should not be used as the sole means of detecting cervical cancer. Both false-positive and false-negative reports do occur. Test Methodology: Note 02 This liquid based ThinPrep(R) pap test was screened with the use of an image guided system. HPV Genotype Reflex Note 02 Criteria not met, HPV Genotype not performed. FLAG LEGEND: L-Low Normal,H-High Normal,LL-Alert Low,HH-Alert High <-Panic Low,>-Panic High,A-Abnormal,AA-Critical Abnormal Performed at: [address] [facility] [place] [address] Usha Crain MD, HPV APTIMA Negative Negative [facility] Comment: This nucleic acid amplification test detects fourteen high- risk HPV types (16,18,31,33,35,39,45,51,52,56,58,59,66,68) without differentiation. Performed at: =G - [facility] [address], [place] [id number] Secretary Board Of Commissioners: Usha Crain MD, Phone: [phone] Performed at: - [facility] [place], [place] [id number] Secretary Board Of Commissioners: Usha Crain MD, Phone: [phone] 07/14/2025 2:25 PM EDT 07/14/2025 9:21 PM EDT Narrative [facility] - 07/17/2025 3:08 PM EDT SPATULA-ALONE VAGINA Harvey Mesha DO LAB BLOOD ORDERABLES Final Resul t [facility] * Pap Smear (07/14/2025 12:00 AM EDT) Swab Cervical swab / Unknown Harvey Mesha DO LAB CYTOLOGY ORDERABLES Final Re sult EXTERNAL LAB * Bilateral screening mammogram with tomosynthesis (05/29/2024 9:24 AM EDT) Anatomical Region Laterality Modality Breast Bilateral Mammography 05/29/2024 11:5 1 AM EDT Impressions 05/29/2024 12:09 PM EDT BIRADS 2 - Benign Follow-up: Routine Screening Mamm Board Certified Radiologists. Accredited by the ACR and FDA. MAMMOGRAPHY IS VERY IMPORTANT TO YOUR HEALTH. THE [place] [employer] GUIDELINES RECOMMEND THAT WOMEN 40 [...] BY: ELECTRONICALLY SIGNED BY: Steve Fong MD Narrative 05/29/2024 12:09 PM EDT EXAMINATION: BI MAMMOGRAM SCREENING TOMOSYNTHESIS BILATERAL CLINICAL HISTORY:screening mammogram COMPARISON: February 17, 2023. RESULT: Density: Heterogeneously dense [3] There is no suspicious mass, asymmetry, architectural distortion, or calcification. Right upper outer quadrant biopsy clip. Overall appearance stable. Procedure Note Steve Fong MD - 05/29/2024 EXAMINATION: BI MAMMOGRAM SCREENING TOMOSYNTHESIS BILATERAL CLINICAL HISTORY:screening mammogram COMPARISON: February 17, 2023. RESULT: Density: Heterogeneously dense [3] There is no suspicious mass, asymmetry, architectural distortion, orcalcification. Right upper outer quadrant biopsy clip. Overallappearance stable. IMPRESSION: BIRADS 2 - Benign Follow-up: Routine Screening Mamm Board Certified Radiologists. Accredited by the ACR and FDA. MAMMOGRAPHY IS VERY IMPORTANT TO YOUR HEALTH. THE [employer] CAN[employer] SOCIETYGUIDELINES RECOMMEND THAT WOMEN 40 YEARS OF AGE AND OLDER SHOULD HAVE AMAMMOGRAM EVERY YEAR. A REMINDER LETTER WILL BE SENT AT THE APPROPRIATE TIME. THIS FACILITYUTILIZES A REMINDER SYSTEM TO ENSURE ALL PATIENTS RECEIVE REMINDERNOTIFICATIONS AT THE APPROPRIATE TIME BASED ON THE RECOMMENDATIONS OF THISEXAM. THIS INCLUDES REMINDERS FOR ROUTINE SCREENING MAMMOGRAMS, DIAGNOSTICMAMMOGRAMS IN WHICH THE PATIENT IS ASKED TO RETURN FOR ADDITIONAL VIEWS,OR OTHER BREAST IMAGING INTERVENTIONS WHEN APPROPRIATE. THE PATIENT WILLBE PLACED IN THE APPROPRIATE REMINDER SYSTEM INCLUDING A REMINDER AT THEAPPROPRIATE TIME FOR ANY PENDING ADDITIONAL VIEWS. TRANSCRIBED BY: ELECTRONICALLY SIGNED BY: Steve Fong MD [facility] Mesha DO [facility] BI PROCEDURES Final Result * THINPREP TIS PAP REFLEX HPV MRNA E6/E7 ([id number]) (11/16/2020) CLINICAL INFORMATION: None given [facility] LMP: MICHELLE BSO [facility] PREV. PAP: 10/29/18 NEGATIVE NO MS LEGACY EXTERNAL LAB PREV. BX: NONE GIVEN [facility] CY EXTERNAL LAB SOURCE: Vagina [facility] STATEMENT OF ADEQUACY: SATISFACTORY FOR EVALUATION [facility] INTERPRETATION /RESULT: Negative for intraepithelial lesion or malignancy. [facility] COMMENT: This Pap test has been evaluated with computer assisted technology. [facility] CYTOTECHNOLOGI ST: SEE COMMENT [facility] Comment: DMK, CT(ASCP) CT screening location: [employer] [facility], [address] [place] [address]. COMMENT SEE COMMENT [facility] LEG ACY EXTERNAL LAB Comment: EXPLANATORY NOTE: The Pap is a screening test for cervical cancer. It is not a diagnostic test and is subject to false negative and false positive results. It is most reliable when a satisfactory sample, regularly obtained, is submitted with relevant clinical findings and history, and when the Pap result is evaluated along with historic and current clinical information. 11/16/2020 Harman Putnam [facility] Final Result [facility] from Last 3 Months or Most Recently Relevant to Health Maintenance Insurance [employer] Care Teams Cloth Carrier Relationship Specialty Start Date End Date Crsity Ricardo MD [address] [place] [address] PCP - General Family Medicine 05/28/24
--- OUTSIDE RECORDS SUMMARY | 2025-08-08 07:24 | XMS_ITS | Encounter Summary ---
Author Organization [employer] [facility] Address [facility] [id number] [address] [place] [address] Care Team Providers Care Mold Forms Builder Name Role Phone Nash Neal Hudson TURNER-HOME ECONOMIST CONSUMER SERVICE Primary Care Provider + Encounter Details Date Type Department Care Team (Late Contact Info) Description 04/30/2024 Orders Only [facility] Internal Medicine - Family Medicine [address] [place] [phone] External, Scanning Provider Social History Tobacco Use Types Packs/Day Years Used Date Smoking Tobacco: Former Cigarettes Q uit: 2008 Smokeless Tobacco: Never Alcohol Use Standard Drinks/Week Comments Yes 0 (1 standard drink = 0.6 oz pur e alcohol) socailly PHQ-2 Answer Date Recorded Total Score 0 04/09/2024 Childcare Answer Date Recorded Childcare Unknown 05/08/2019 Employment Answer Date Recorded Employment Unknown 05/08/2019 Hunger Screening Answer Date Recorded Within the past 12 months we worried whether our food would run out before we got money to buy more. Never True 04/09/2024 Within the past 12 months th e food we bought just didn't last and we didn't have money to get more. Never True 04/09/2024 Purpose - Life Answer Date Recorded Purpose [...] Medicine - Family Medicine [address] [place] [address] Nash Neal, SPINDRAW OPERATOR-HOME ECONOMIST CONSUMER SERVICE [address], [facility] [address] [place] [address] documented as of this encounter Procedures Procedure Name Priority Date/Time Associated Diagnosis Comments US PELVIC WITH TRANSVAGINAL Routine 04/30/2024 1:29 PM EDT documented in this encounter Results * Ultrasound pelvic with transvaginal (04/30/2024 1:29 PM EDT) Anatomical Region Laterality Modality Body, Pelvis Ultrasound us Scanning Provider External IMG US ORDERABLES Fin al Result documented in this encounter Visit Diagnoses Not on filedocumented in this encounter Additional Health Concerns Assessment Noted Time PHQ-9 Depression Total Score: 0 04/09/20 24 7:34 AM EDT A Body Mass Index follow-up plan has been documented for the patient 04/09/2024 8:46 AM EDT documented as of this encounter Care Teams Mold Forms Builder Relationship Specialty Start Date End Date Nash Neal, SPINDRAW OPERATOR-HOME ECONOMIST CONSUMER SERVICE [address] [place] [address] PCP - General Internal Medicine 06/23/25 documented as of this encounter
--- OUTSIDE RECORDS SUMMARY | 2025-08-08 07:24 | XMS_ITS | Encounter Summary ---
Author Organization [facility] Address [facility] [id number] [address] [place] [address] Care Team Providers Care Financial Reporting Analyst Name Role Phone Nash Neal Hudson TURNER-STRATEGY EXECUTION CONSULTANT Primary Care Provider + Encounter Details Date Type Department Care Team (Late st Contact Info) Description 04/11/2022 [facility] [address] [facility] [place] [address] Laura Bridges MA Social History Tobacco Use Types Packs/Day [...] PM EDT documented as of this encounter Miscellaneous Notes * Telephone Encounter - Laura Bridges MA - 04/11/2022 4:14 PM EDT After getting xray results, called [place] office, spoke to javier and she put pt on for 04/12 @2pm with BRANDT Adame . Faxed result and nafisa office note over and pt informed. documented in this encounter Plan of Treatment Upcoming Encounters Date Type Department Care Team (Late st Contact Info) Description 04/21/2026 7:00 AM EDT Office Visit [facility] Internal Medicine - Family Medicine [address] [place] [address] Nash Neal, BAGGAGEMASTER-STRATEGY EXECUTION CONSULTANT [address], [facility] [address] [place] [address] documented as of this encounter Visit Diagnoses Not on filedocumented in this encounter Additional Health Concerns Assessment Noted Time PHQ-9 Depression Total Score: 0 04/11/20 9:36 AM EDT A Body Mass Index follow-up plan has been documented for the patient 03/23/2022 9:38 AM EDT documented as of this encounter Care Teams Financial Reporting Analyst Relationship Specialty Start Date End Date Nash Neal, BAGGAGEMASTER-STRATEGY EXECUTION CONSULTANT [address] [place] [address] PCP - General Internal Medicine 06/23/25 documented as of this encounter
--- OUTSIDE RECORDS SUMMARY | 2025-08-08 07:24 | XMS_ITS | Encounter Summary ---
Author Organization [employer] [facility] tem Address [facility] [id number] [address] [place] [address] Care Team Providers Care Bioinformatics Engineer Name Role Phone Nash Neal Hudson TURNER-NURSING STAFF DEVELOPMENT COORDINATOR Primary Care Provider + Encounter Details Date Type Department Care Team (Late Contact Info) Description 04/24/2024 Orders Only [facility] Internal Medicine - Family Medicine [address] [place] [phone] External, Scanning Provider Social History Tobacco Use [...] Medicine - Family Medicine [address] [place] [address] Nash Neal, YOUTH SUPPORT WORKER-NURSING STAFF DEVELOPMENT COORDINATOR [address], [facility] [address] [place] [address] documented as of this encounter Procedures Procedure Name Priority Date/Time Associated Diagnosis Comments CT ABDOMEN AND PELVIS W WO CONT Routine 04/22/2024 11:23 AM EDT documented in this encounter Results * CT abdomen and pelvis with and without contrast (04/22/2024 11:23 AM EDT) Anatomical Region Laterality Modality Body, Abdomen, Body Covera N/A Compu eder Tomography us Scanning Provider External IMG CT ORDERABLES Fin al Result documented in this encounter Visit Diagnoses Not on filedocumented in this encounter Additional Health Concerns Assessment Noted Time PHQ-9 Depression Total Score: 0 04/09/20 24 7:34 AM EDT A Body Mass Index follow-up plan has been documented for the patient 04/09/2024 8:46 AM EDT documented as of this encounter Care Teams Bioinformatics Engineer Relationship Specialty Start Date End Date Nash Neal, YOUTH SUPPORT WORKER-NURSING STAFF DEVELOPMENT COORDINATOR [address] [place] [address] PCP - General Internal Medicine 06/23/25 documented as of this encounter
--- OUTSIDE RECORDS SUMMARY | 2025-08-08 07:24 | XMS_ITS | Clinical Summary ---
Author Organization [employer] [facility] Address [facility] [id number] [address] [place] [address] Care Team Providers Care Vertical Mill Operator Name Role Phone Ángel Nash Trveiño APRN-SPIN TANK TENDER Primary Care Provider + Allergies No known active allergies Medications ascorbic acid (VITAMIN C) 500 mg tablet Active ibuprofen (ADVIL,MOTRIN) 800 mg tabletIndicatio ns:Left forearm pain,Elbow pain, left Take 1 tablet (800 mg total) by mouth every 8 (eight) hours as needed for pain. Take with food 30 tablet 2 Active magnesium oxide 200 mg magnesium tablet,chewable Magnesium Acti ve ferrous sulfate 325 (65 FE) mg EC tabletIndicatio ns:Other iron deficiency anemia Take 1 tablet (325 mg total) by mouth in the morning and 1 tablet (325 mg total) in the evening. Take with meals. 60 tablet 1 3 Active Active Problems Problem Noted Date Diagnosed Date Annual physical exam 11/09/2017 Iron deficiency anemia 11/09/2017 Muscle strain of right shoulder 11/01/2017 Absolute anemia 11/01/2017 B12 deficiency 11/01/2017 Blood tests for routine general physical examina tion 11/01/2017 Family History Medical History Relation Name Comments Heart disease Father Relation Name Status Comments Father Mother Alive Social History Tobacco Use Types Packs/Day Years Used Date Smoking Tobacco: Former Cigarettes Q uit: 2008 Smokeless Tobacco: Never Tobacco Cessation:Counseling Given: Not Answered Alcohol Use Standard Drinks/Week Comments Yes 0 (1 standard drink = 0.6 oz pur e alcohol) socailly PHQ-2 Answer Date Recorded Total Score 0 04/15/2025 Childcare Answer Date Recorded Childcare Unknown 05/08/2019 Employment Answer Date Recorded Employment Unknown 05/08/2019 Hunger Screening Answer Date Recorded Within the past 12 months we worried whether our food would run out before we got money to buy more. Never True 04/15/2025 Within the past 12 months th e food we bought just didn't last and we didn't have money to get more. Never True 04/15/2025 Purpose - Life Answer Date Recorded Purpose and direction in life Unknown Comments No Sex and Gender Information Value Date Recorded Sex Assigned at Not on file Legal Sex Female 11:31 AM EDT Gender Identity Not on file Sexual Orientation Not on file Last Filed Vital Signs Vital Sign Reading Time Taken Comments Blood Pressure 100/62 04/15/2025 7:31 AM EDT Pulse 66 04/15/2025 7:31 AM EDT Temperature 36.5 C (97.7 F) 04/15/2025 7:31 AM EDT Respiratory Rate 16 04/15/2025 7:31 AM EDT Oxygen Saturation 99% 04/15/2025 7:31 AM EDT Inhaled Oxygen Concentration - - Weight 69.2 kg (152 lb 9.6 oz) 04/15/2025 7:31 A M EDT Height 167.6 cm (5' 6 ) 04/15/2025 7:31 AM EDT Body Mass Index 24.63 04/15/2025 7:31 AM EDT Plan of Treatment Upcoming Encounters Date Type Department Care Team (Late st Contact Info) Description 04/21/2026 7:00 AM EDT Office Visit [facility] Internal Medicine - Family Medicine [address] [place] [address] Nash Neal, COMPUTER SCIENCE INSTRUCTOR-SPIN TANK TENDER [address], [facility] [address] [place], [place] [id number] Health Maintenance Due Date Last Done Comments DTaP,Tdap and Td Vaccines (1 - Tdap) 1984 Zoster (Shingles) Vaccine (1 of 2) 2015 Mammogram 05/29/2025 05/29/2024, 01/26, 03/23/2022, Additional history exists Influenza Vaccine 07/28/2025 Colonoscopy 02/24/2026 02/25/2016, 09/23/2013 Adult BMI Screening 04/15/2026 04/15/2025 Depression Screening 04/15/2026 04/15/2025 Tobacco Screening 04/15/2026 04/15/2025 Pap Smear 07/01/2027 07/01/2024, 12/26/2022 Medical Devices Not on file Procedures Procedure Name Priority Date/Time Associated Diagnosis Comments HM MAMMOGRAPHY Routine 03/23/2022 HM COLONOSCOPY Routine 02/25/2016 from Last 3 Months or Most Recently Relevant to Health Maintenance Results * HM MAMMOGRAPHY (03/23/2022) Anatomical Region Laterality Modality Other us Scanning Provider External HEALTH MAINTENANCE Fi nal Result * COLONOSCOPY (02/25/2016) 02/25/2016 us Scanning Provider External HEALTH MAINTENANCE Fi nal Result MANUALLY TRANSCRIBED LAB RESULTS from Last 3 Months or Most Recently Relevant to Health Maintenance Insurance [employer] Care Teams Vertical Mill Operator Relationship Specialty Start Date End Date Nash Neal, COMPUTER SCIENCE INSTRUCTOR-SPIN TANK TENDER [address] [place] [address] PCP - General Internal Medicine 06/23/25
--- OUTSIDE RECORDS SUMMARY | 2025-08-08 07:25 | XMS_ITS | CCD ---
Author Organization [facility] Care Team Providers Care Virtual Classroom Manager Name Role Phone PAULETTE MARCELINO Admitting Unavailable PAULETTE MARCELINO Attending Unavailable PAULETTE MARCELINO Consulting Unavailable FUENTES, DR BARBOSA Admitting Unavailable FUENTES, DR BARBOSA Attending Unavailable TRISTAN, DR GOLDEN Connell Consulting Unavailable FUENTES, DR BARBOSA Consulting Unavailable DO Josef Portillo Primary Care Provider [phone] LYDIA Marcelino Attending Provider Indigo Mckeon Unavailable DO Josef Portillo Primary Care Provider YUE Mckeon Attending Provider PAULETTE MARCELINO Referring Unavailable PAULETTE MARCELINO Primary Care Unavailable DO Harvey Zimmer Attending Provider [phone] Cristy Ricardo MD Primary Care Provider Ryland TURNER-Paulette SANTIAGO Primary Care Provid er Ryland TURNER-Paulette SANTIAGO Primary Care Provid er PAULETTE MARCELINO Attending Unavailable PAULETTE MARCELINO Referring Unavailable PAULETTE MARCELINO Primary Care Unavailable Evangelista Annika TURNER Attending Provider [phone] NO FAMILY, PHYSICIAN Primary Care Provider Unava ilable Evangelista Annika TURNER Attending Provider [phone] Harvey Zimmer Attending Unavailable Harvey Zimmer Admitting Unavailable NON STAFF Primary Care Unavailable Annika Naidu Attending Unavailable Annika Naidu Admitting Unavailable MARIAN CINTRON Attending Unavailable MARIAN CINTRON Attending Unavailable Medications Current Medications Medication Drug Class(es) Dates Sig (Normalized) Sig (Original) acetaminophen 325 mg oral tablet (7 sources) acetaminophen (T ylenol) 325 MG tablet every 4 (four) hours Active ascorbic acid 500 mg chewable tablet (17 sources) Vitamin C ascorbic acid (V itamin [...] / vitamin e 6.75 mg chewable tablet (7 sources) Nicotinic Acid, Vitamin A, Vitamin B12, Vitamin D, Vitamin C Pediatric Multivitamins-Fl (MultiVitamin + Fluoride) 0.25 MG chewable tablet Multivitamin Active b complex vitamins capsule (7 sources) take 1 capsule by mouth once daily b complex vitamins capsule Take 1 capsule by mouth Daily Active bacillus coagulans [id number] unt / inulin 250 mg oral capsule (7 sources) Bacillus Coagulans-Inulin (Probiotic) 1-250 BILLION-MG capsule Probiotic Active calcium carb-vitamin D3-vit K2 600 mg-1,000 unit-90 mcg tablet (1 source) End: calcium carb-vitamin D3-vit K2 600 mg-1,000 unit-90 mcg tablet Vitamin D3 1000 04/09/2024 Discontinued (Therapy completed) cholecalciferol 0.025 mg oral capsule (7 sources) Vitamin D Cholecalciferol (Vitamin D3) 1000 units capsule Vitamin D3 1000 Active diclofenac sodium 50 mg delayed release oral tablet (7 sources) Nonsteroidal Anti-inflammatory Drug Start: take 1 tablet by mouth every twelve hours for pain diclofenac (Voltaren) 50 MG EC tablet take 1 tablet by mouth every 12 hours if needed for pain 04/23/2024 Active ergocalciferol, vitamin D2, (VITAMIN D2 ORAL) (1 source) End: ergocalciferol, vitamin D2, (VITAMIN D2 ORAL) 04/09/2024 Discontinued (Therapy completed) ferrous sulfate 325 mg delayed release oral tablet (9 sources) Start: take 1 tablet by mouth [...] 30 tablet 04/11/2022 Active MAGNESIUM 4 MUSCLES (7 sources) MAGNESIUM 4 MUSC LES Magnesium Active [...] Test Name Value Interpretation Reference Range Facility IGP,APTIMA HPV,AGE GDLNon AGE GDLN ACOG TESTING Note . [facility] Comment on above: TESTS RESULT FLAG U NITS REF RANGE LAB Clinician Provided Cytology Information Source.............Vagina No. of containers..01 ThinPrep Vial Age Algo ACOG Malena... FLAG LEGEND: L-Low Normal,H-High Normal,LL-Alert Low,HH-Alert High <-Panic Low,>-Panic High,A-Abnormal,AA-Critical Abnormal Performed at: 01 = [address] [address] Usha Crain MD, HPV APTIMA Negative Negative [facility] Health[facility] e Comment on above: This nucleic acid am plification test detects fourteen high- risk HPV types (16,18,31,33,35,39,45,51,52,56,58,59,66,68) without differentiation. Performed at: =[address] [id number] [employer] Process Server Developer: Usha Crain MD, Phone: [phone] Performed at: [address] [place] [id number] [employer] Process Server Developer: Usha Crain MD, Phone: [phone] IGP, APTIMA HPV, RFX 16/18,45 Note . [facility] Comment on above: TESTS RESULT FLAG UN ITS REF RANGE LAB DIAGNOSIS: 02 NEGATIVE FOR INTRAEPITHELIAL LESION OR MALIGNANCY. CELLULAR CHANGES ASSOCIATED WITH ATROPHY ARE PRESENT. Specimen adequacy: 02 Satisfactory for evaluation. Areas of partially obscuring inflammatory exudate are present. Performed by: 02 Liv Jarrell, Supervisory Inserting Machine Operator ([facility]) . 02 Note: Note 02 [...] Low,>-Panic High,A-Abnormal,AA-Critical Abnormal Performed at: 02 [facility] [address] [place] [address] Usha Crain MD, [facility] e Urine Cultureon 06-18-2025 Bacteria identified Cx Nom (U) <9,000 colonies/ml mixed bacterial skin contaminants 2 Days PERFORMED BY: [facility] [address] [place] [address] PATHOLOGIST VEHICLE MONITOR TECHNICIAN JAYLEEN BA M.D. Normal [facility] Comment on above: Performed By: #### C UU #### [address] CBC WITH AUTO DIFFERENTIALon 04-15-2025 BASOPHILS ABSOLUTE COUNT (10*3/UL) BY AUTOMATED COUNT 0.1 10*3/uL Normal 0.0-0.2 [facility] Comment on above: Performed By: #### C BCA #### [facility] ([facility]) [address] [place] [address] VIR BASOPHILS RELATIVE PERCENT BY AUTOMATED COUNT 1.4 % Normal [facility] Comment on above: Performed By: #### C BCA #### [facility] ([facility]) [address] [place] [address] VIR CELLAVISION DIFFERENTIAL TYPE AUTOMATED DIFFERENTIAL Normal [facility] Comment on above: Performed By: #### C BCA #### [facility] ([facility]) [address] [place] [address] VIR Eosinophils (Bld) [#/Vol] 0.1 10*3/uL Normal 0.0-0.4 [facility] Comment on above: Performed By: #### C BCA #### [facility] ([facility]) [address] [place] [address] VIR EOSINOPHILS RELATIVE PERCENT BY AUTOMATED COUNT 3.0 % Normal [facility] Comment on above: Performed By: #### C BCA #### [facility] ([facility]) [address] [place] [address] VIR Erythrocyte distribution width (RBC) [Ratio] 13.4 % Normal 11.5-15 [facility] Comment on above: Performed By: #### C BCA #### [facility] ([facility]) [address] [place] [address] VIR Hematocrit (Bld) [Volume fraction] 37.2 % Normal 35-47 [facility] Comment on above: Performed By: #### C BCA #### [facility] ([facility]) [address] [place] [address] VIR Hemoglobin (Bld) [Mass/Vol] 12.6 g/dL Normal 11.7-15.5 [facility] Comment on above: Performed By: #### C BCA #### [facility] ([facility]) [address] [place] [address] VIR LYMPHOCYTES ABSOLUTE COUNT (10*3/UL) BY AUTOMATED COUNT 1.4 10*3/uL Normal 1.0-3.5 [facility] Comment on above: Performed By: #### C BCA #### [facility] ([facility]) [address] [place] [address] VIR LYMPHOCYTES RELATIVE PERCENT BY AUTOMATED COUNT 39.0 % Normal [facility] Comment on above: Performed By: #### C BCA #### [facility] ([facility]) [address] [place] [address] VIR MCH (RBC) [Entitic mass] 27.9 pg Normal 27-34 [facility] Comment on above: Performed By: #### C BCA #### [facility] ([facility]) [address] [place] [address] VIR MCHC (RBC) [Mass/Vol] 33.7 g/dL Normal 32-36 [facility] Comment on above: Performed By: #### C BCA #### [facility] ([facility]) [address] [place] [address] VIR MCV (RBC) [Entitic vol] 83 fL Normal 80-100 [facility] Comment on above: Performed By: #### C BCA #### [facility] ([facility]) [address] [place] [address] VIR MONOCYTES ABSOLUTE COUNT (10*3/UL) BY AUTOMATED COUNT 0.3 10*3/uL Normal 0.0-0.9 [facility] Comment on above: Performed By: #### C BCA #### [facility] ([facility]) [address] [place] [address] VIR MONOCYTES RELATIVE PERCENT BY AUTOMATED COUNT 8.1 % Normal [facility] Comment on above: Performed By: #### C BCA #### [facility] ([facility]) [address] [place] [address] VIR NEUTROPHILS ABSOLUTE COUNT BY AUTOMATED COUNT 1.8 10*3/uL Normal 1.5-6.6 [facility] Comment on above: Performed By: #### C BCA #### [facility] ([facility]) [address] [place] [address] VIR NEUTROPHILS RELATIVE PERCENT BY AUTOMATED COUNT 48.5 % Normal [facility] Comment on above: Performed By: #### C BCA #### [facility] ([facility]) [address] [place] [address] VIR Platelet mean volume (Bld) [Entitic vol] 7.8 fL Normal 7-12 [facility] Comment on above: Performed By: #### C BCA #### [facility] ([facility]) [address] [place] [address] VIR Platelets (Bld) [#/Vol] 357 10*3/uL Normal 150-450 [facility] Comment on above: Performed By: #### C BCA #### [facility] ([facility]) [address] [place] [address] VIR RBC COUNT 4.51 X10E12/L Normal 3.8-5.2 [facility] Comment on above: Performed By: #### C BCA #### [facility] ([facility]) [address] [place] [address] VIR WBC (Bld) [#/Vol] 3.7 10*3/uL Low 4-11 [facility] Comment on above: Performed By: #### C BCA #### [facility] ([facility]) [address] [place] [address] VIR COMPREHENSIVE METABOLIC PANE Drew 04-15-2025 Albumin [Mass/Vol] 4.4 g/dL Normal 3.2-5.3 [facility] Comment on above: Performed By: #### C MP #### [facility] ([facility]) [address] [place] [address] VIR ALP [Catalytic activity/Vol] 47 U/L Normal 39-130 [facility] Comment on above: Performed By: #### C MP #### [facility] ([facility]) [address] [place] [address] VIR ALT [Catalytic activity/Vol] 18 U/L Normal <=31 [facility] Comment on above: Performed By: #### C MP #### [facility] ([facility]) [address] [place] [address] VIR Anion gap [Moles/Vol] 9 mmol/L Normal 5-15 [facility] Comment on above: Performed By: #### C MP #### [facility] ([facility]) [address] [place] [address] VIR AST [Catalytic activity/Vol] 26 U/L Normal <=41 [facility] Comment on above: Performed By: #### C MP #### [facility] ([facility]) [address] [place] [address] VIR Bilirubin [Mass/Vol] 0.5 mg/dL Normal 0.3-1.2 [facility] Comment on above: Performed By: #### C MP #### [facility] ([facility]) [address] [place] [address] VIR Calcium [Mass/Vol] 9.4 mg/dL Normal 8.5-10.5 [facility] Comment on above: Performed By: #### C MP #### [facility] ([facility]) [address] [place] [address] VIR Chloride [Moles/Vol] 104 mmol/L Normal 98-109 [facility] Comment on above: Performed By: #### C MP #### [facility] ([facility]) [address] [place] [address] VIR CO2 [Moles/Vol] 25 mmol/L Normal 22-32 [facility] Comment on above: Performed By: #### C MP #### [facility] ([facility]) [address] [place] [address] VIR Creatinine [Mass/Vol] 0.70 mg/dL Normal 0.40-1.00 [facility] Comment on above: Result Comment: METH OD TRACEABLE TO IDMS STANDARD Performed By: #### C MP #### [facility] ([facility]) [address] [place] [address] VIR EGFR (CKD-EPI) NON-RACE DEPENDENT >^90 Normal >=60 [facility] Comment on above: Result Comment: Repo rted eGFR is based on the CKD-EPI 2020 equation that does not use a race coefficient. Performed By: #### C MP #### [facility] ([facility]) [address] [place] [address] VIR Glucose [Mass/Vol] 103 mg/dL High 65-99 [facility] Comment on above: Performed By: #### C MP #### [facility] ([facility]) [address] [place] [address] VIR Potassium [Moles/Vol] 4.2 mmol/L Normal 3.5-5.0 [facility] Comment on above: Performed By: #### C MP #### [facility] ([facility]) [address] [place] [address] VIR Protein [Mass/Vol] 7.0 g/dL Normal 6.0-8.0 [facility] Comment on above: Performed By: #### C MP #### [facility] ([facility]) [address] [place] [address] VIR Sodium [Moles/Vol] 138 mmol/L Normal 134-146 [facility] Comment on above: Performed By: #### C MP #### [facility] ([facility]) [address] [place] [address] VIR Urea nitrogen [Mass/Vol] 14 mg/dL Normal 5-23 [facility] Comment on above: Performed By: #### C MP #### [facility] ([facility]) [address] [place] [address] VIR FERRITINon 04-15-2025 Ferritin [Mass/Vol] 9 ng/mL Low 11-307 [facility] Comment on above: Performed By: #### F ERR #### [facility] ([facility]) [address] [place] [address] VIR HEMOGLOBIN A1Con 04-15-2025 Glucose [Mass/Vol] 120 mg/dL Normal [facility] Comment on above: Performed By: #### H A1C #### [facility] ([facility]) [address] [place] [address] VIR HbA1c (Bld) [Mass fraction] 5.8 % High 4.4-5.6 [facility] Comment on above: Result Comment: ADA Guidelines Result HgbA1c Normal : less than 5.7 % Prediabetes : 5.7 % to 6.4 % Diabetes : > 6.4 % Use with caution in patients with abnormal hemoglobin variants as the half-life of red blood cells and in vivo glycation rates are affected. Performed By: #### H A1C #### [facility] ([facility]) [address] [place] [address] VIR IRON AND TIBCon 04-15-2025 Iron [Mass/Vol] 110 ug/dL Normal 50-170 [facility] Comment on above: Performed By: #### F EPR #### [facility] ([facility]) [address] [place] [address] VIR IRON BINDING 403 ug/dL Normal 250-425 [facility] Comment on above: Performed By: #### F EPR #### [facility] ([facility]) [address] [place] [address] VIR IRON SATURATION 27 % SATURATION Normal 15-50 [facility] Comment on above: Performed By: #### F EPR #### [facility] ([facility]) [address] [place] [address] VIR Transferrin [Mass/Vol] 288 mg/dL Normal 168-336 [facility] Comment on above: Performed By: #### F EPR #### [facility] ([facility]) [address] [place] [address] VIR LIPID PROFILEon 04-15-2025 Cholesterol [Mass/Vol] 185 mg/dL Normal 150-200 [facility] Comment on above: Performed By: #### L IPR #### [facility] ([facility]) [address] [place] [address] VIR Cholesterol in HDL [Mass/Vol] 97 mg/dL Normal >39 [facility] Comment on above: Result Comment: HDL <40 mg/dL - High Risk HDL > or = 40mg/dL- Desirable HDL >60 mg/dL - Negative Risk Performed By: #### L IPR #### [facility] ([facility]) [address] [place] [address] VIR Cholesterol in LDL [Mass/Vol] 81 mg/dL Normal <130 [facility] Comment on above: Result Comment: LDL <100 mg/dL - Desirable LDL >160 mg/dL - High Risk Performed By: #### L IPR #### [facility] ([facility]) [address] [place] [address] VIR CHOLESTEROL:HDL 1.9 Normal 1.0-5.0 [facility] Comment on above: Performed By: #### L IPR #### [facility] ([facility]) [address] [place] [address] VIR Triglyceride [Mass/Vol] 37 mg/dL Normal 27-150 [facility] Comment on above: Performed By: #### L IPR #### [facility] ([facility]) [address] [place] [address] VIR VERY LOW LIPOPROTEIN 7 mg/dL Normal 0-30 [facility] Comment on above: Performed By: #### L IPR #### [facility] ([facility]) [address] [place] [address] VIR VITAMIN B12on 04-15-2025 Cobalamin (Vitamin B12) [Mass/Vol] 424 pg/mL Normal 180-914 [facility] Comment on above: Performed By: #### B 12 #### [facility] ([facility]) [address] [place] [address] VIR Drew 07-12-2024 L Specimen: [id number] Received: 07/15/24 Status: TOMÁS Barry Num: [id number] Spec Type: Surgical Subm Dr: Harvey Zimmer Tissues: A Ovary - Cyst, Non-Neoplastic Procedures: HE/3, Gross/Micro L4 Age/ Patient Sex Location Account Attending Physician Italia Núñez 59/F [facility] [id number] Harvey Zimmer SPEC NUM: [id number] RECD: 07/15/24 STATUS: TOMÁS BARRY NUM: [id number] HERBERTH: 07/12/[address]: Harvey Zimmer ENTERED: 07/15/[address] [facility] DR: SPEC TYPE: Surgical DEPT: JOSE TAVERAS ENTERED BY: [id number] RECV BY: [id number] ORDERED: HE/3, Gross/Micro L4 ORDERED: HE/3, Gross/Micro [...] x 1.3 cm. The exterior surface is marques-yellow, roughened, with cystic structures, ranging in size from 0.3 to 0.6 cm in greatest dimension. The ovary is serially sectioned revealing multiple cystic structures ranging in size from 0.1 to 0.5 cm in greatest dimension. Gate Agent sections are submitted as follows: Cassette A1-A2 ovary Cassette A3 appliance service representative sections of fallopian tube CPT Codes 92697 Specimen: [id number] Received: 07/15/24 Status: TOMÁS Barry Num: [id number] Spec Type: Surgical Subm Dr: Harvey Zimmer Tissues: A Ovary - Cyst, Non-Neoplastic Procedures: HE/Dominga, Gross/Micro L4 Patient: Italia Núñez [id number] (Continued) Signed (signature on file) Duc Griffin MD 07/18/[address] [facility] L Specimen: Received: 07/15/24 Status: TOMÁS Ramireziliana Num: [id number] Spec Type: Cytology Subm Dr: Harvey Zimmer Tissues: A CYST FLUID (RT CYST FLUID) Procedures: HE/2, Gross/Micro L4, Cyto Prepstain, PAPSTN Age/ Patient Sex Location Account Attending Physician Italia Núñez 59/F [facility] [id number] Harvey Zimmer SPEC NUM: RECD: 07/15/24 STATUS: JAMILAAnna BARRY NUM: [id number] HERBERTH: 07/12/24 [facility] [address]: Harvey Zimmer ENTERED: 07/15/24 [facility] DR: Luciano,Lab SPEC TYPE: Cytology DEPT: JOSE BURLESON ENTERED BY: [id number] RECV BY: [id number] ORDERED: HE/2, Gross/Micro L4, Cyto Prepstain, PAPSTN ORDERED: HE/2, Gross/Micro L4, Cyto Prepstain, PAPSTN Pathological Diagnosis Right cyst fluid: Negative for malignant cells. Gross Description Received fresh is 20 ml yellow slightly hazy unfixed fluid for cytology said to have been obtained as Right cyst fluid. ThinPrep and cell block preparations are prepared for microscopic examination.(CC/ny) CPT Codes 57530 Specimen: [id number] Received: 07/15/24-131 Status: TOMÁS Barry Num: [id number] Spec Type: Cytology Subm Dr: Harvey Zimmer Tissues: A CYST FLUID (RT CYST FLUID) Procedures: HE/2, Gross/Micro L4, Cyto Prepstain, PAPSTN Patient: Italia Núñez [id number] (Continued) Signed (signature on file) Duc Griffin MD 07/16/24 1343 Normal [facility] CBC AND AUTO DIFFon 04-09-20 24 ABSOLUTE BASOPHIL 0.0 X10E9/L Normal 0.0-0.2 [facility] Comment on above: Performed By: #### C BCA, CMP, FEPR, 18410-9, 3206-3, 6106-4, 9182-9 #### [facility] ([id number]) [address], [address] [place] [address] ABSOLUTE NEUTROPHIL 1.8 X10E9/L Normal 1.5-6.6 [facility] Comment on above: Performed By: #### C BCA, CMP, FEPR, 59971-3, 3016-3, 6-4, 2132-07 #### [facility] ([id number]) [address] [place] [address] Basophils/100 WBC (Bld) 1.4 % Normal [facility] Comment on above: Performed By: #### C BCA, CMP, FEPR, 89317-5, 3016-3, 6-4, 2132-07 #### [facility] ([id number]) [address] [place] [address] Eosinophils (Bld) [#/Vol] 0.1 10*3/uL Normal 0.0-0.4 [facility] Comment on above: Performed By: #### C BCA, CMP, FEPR, 75120-4, 3016-3, 2275-4, 2132-07 #### [facility] ([id number]) [address] [place] [address] Eosinophils/100 WBC (Bld) 4.2 % Normal [facility] Comment on above: Performed By: #### C BCA, CMP, FEPR, 87064-7, 3016-3, 2275-4, 2132-07 #### [facility] ([id number]) [address] [place] [address] Erythrocyte distribution width (RBC) [Ratio] 13.3 % Normal 11.5-15.0 [facility] Comment on above: Performed By: #### C BCA, CMP, FEPR, 81731-2, 3016-3, 6-4, 2132-07 #### [facility] ([id number]) [address] [place] [address] Hematocrit (Bld) [Volume fraction] 35.8 % Normal 35-47 [facility] Comment on above: Performed By: #### C BCA, CMP, FEPR, 17303-5, 3016-3, 2276-4, 2132-07 #### [facility] ([id number]) [address] [place] [address] Hemoglobin (Bld) [Mass/Vol] 12.0 g/dL Normal 11.7-15.5 [facility] Comment on above: Performed By: #### C BCA, CMP, FEPR, 21485-3, 3016-3, 6-4, 2132-07 #### [facility] ([id number]) [address] [place] [address] Lymphocytes (Bld) [#/Vol] 1.3 10*3/uL Normal 1.0-3.5 [facility] Comment on above: Performed By: #### C BCA, CMP, FEPR, 82539-7, 3016-3, 6-4, 2132-07 #### [facility] ([id number]) [address] [place] [address] Lymphocytes/100 WBC (Bld) 35.0 % Normal [facility] Comment on above: Performed By: #### C BCA, CMP, FEPR, 74942-9, 3016-3, 6-4, 2132-07 #### [facility] ([id number]) [address], [address] [place] [address] MCH (RBC) [Entitic mass] 27.9 pg Normal 27-34 [facility] Comment on above: Performed By: #### C BCA, CMP, FEPR, 37090-6, 3016-3, 2276-4, 2132-07 #### [facility] ([id number]) [address], [address] [place] [address] MCHC (RBC) [Mass/Vol] 33.6 g/dL Normal 32-36 [facility] Comment on above: Performed By: #### C BCA, CMP, FEPR, 84165-3, 3016-3, 2276-4, 2132-07 #### [facility] ([id number]) [address], [address] [place] [address] MCV (RBC) [Entitic vol] 83 fL Normal 80-100 [facility] Comment on above: Performed By: #### C BCA, CMP, FEPR, 70978-7, 3016-3, 2276-4, 2132-07 #### [facility] ([id number]) [address], [address] [place] [address] Monocytes (Bld) [#/Vol] 0.3 10*3/uL Normal 0-0.9 [facility] Comment on above: Performed By: #### C BCA, CMP, FEPR, 50899-7, 3016-3, 2275-4, 2132-07 #### [facility] ([id number]) [address], [address] [place] [address] Monocytes/100 WBC (Bld) 9.7 % Normal [facility] Comment on above: Performed By: #### C BCA, CMP, FEPR, 34322-5, 3016-3, 2276-4, 2132-07 #### [facility] ([id number]) [address], [address] [place] [address] Neutrophils/100 WBC (Bld) 49.7 % Normal [facility] Comment on above: Performed By: #### C BCA, CMP, FEPR, 19772-3, 3016-3, 2276-4, 2132-07 #### [facility] ([id number]) [address], [address] [place] [address] Platelet mean volume (Bld) [Entitic vol] 7.7 fL Normal 7-12 [facility] Comment on above: Performed By: #### C BCA, CMP, FEPR, 80856-7, 3016-3, 2276-4, 2132-07 #### [facility] ([id number]) [address], [address] [place] [address] Platelets (Bld) [#/Vol] 324 10*3/uL Normal 150-450 [facility] Comment on above: Performed By: #### C BCA, CMP, FEPR, 12771-0, 3016-3, 6-4, 2132-07 #### [facility] ([id number]) [address], [address] [place] [address] RBC COUNT 4.31 X10E12/L Normal 3.80-5.20 [facility] Comment on above: Performed By: #### C BCA, CMP, FEPR, 73241-0, 6-3, 2275-4, 2132-07 #### [facility] ([id number]) [address], [address] [place] [address] WBC (Bld) [#/Vol] 3.6 10*3/uL Low 4.0-11.0 [facility] Comment on above: Performed By: #### C BCA, CMP, FEPR, 71714-7, 6-3, 2275-4, 2132-07 #### [facility] ([id number]) [address], [address] [place] [address] COMPREHENSIVE METABOLIC PANE Drew 04-09-2024 Albumin [Mass/Vol] 4.1 g/dL Normal 3.2-5.3 [facility] Comment on above: Performed By: #### C BCA, CMP, FEPR, 05488-7, 3016-3, 6-4, 2132-07 #### [facility] ([id number]) [address], [address] [place] [address] ALP [Catalytic activity/Vol] 53 U/L Normal 39-130 [facility] Comment on above: Performed By: #### C BCA, CMP, FEPR, 09251-6, 3016-3, 2276-4, 2132-07 #### [facility] ([id number]) [address], [address] [place] [address] ALT [Catalytic activity/Vol] 19 U/L Normal 0-31 [facility] Comment on above: Performed By: #### C BCA, CMP, FEPR, 47835-9, 3016-3, 2276-4, 2132-07 #### [facility] ([id number]) [address], [address] [place] [address] Anion gap [Moles/Vol] 9 mmol/L Normal 5-15 [facility] Comment on above: Performed By: #### C BCA, CMP, FEPR, 33854-9, 3016-3, 6-4, 2132-07 #### [facility] ([id number]) [address], [address] [place] [address] AST [Catalytic activity/Vol] 22 U/L Normal 0-41 [facility] Comment on above: Performed By: #### C BCA, CMP, FEPR, 43250-7, 3016-3, 2276-4, 2132-07 #### [facility] ([id number]) [address], [address] [place] [address] Bilirubin [Mass/Vol] 0.4 mg/dL Normal 0.3-1.2 [facility] Comment on above: Performed By: #### C BCA, CMP, FEPR, 28095-9, 3016-3, 2276-4, 2132-07 #### [facility] ([id number]) [address], [address] [place] [address] Calcium [Mass/Vol] 9.2 mg/dL Normal 8.5-10.5 [facility] Comment on above: Performed By: #### C BCA, CMP, FEPR, 29667-2, 3016-3, 2276-4, 2132-07 #### [facility] ([id number]) [address], [address] [place] [address] Chloride [Moles/Vol] 106 mmol/L Normal 98-109 [facility] Comment on above: Performed By: #### C BCA, CMP, FEPR, 34466-2, 3016-3, 2276-4, 2132-07 #### [facility] ([id number]) [address], [address] [place] [address] CO2 [Moles/Vol] 25 mmol/L Normal 22-32 [facility] Comment on above: Performed By: #### C BCA, CMP, FEPR, 28094-2, 3016-3, 2275-4, 2132-07 #### [facility] ([id number]) [address], [address] [place] [address] Creatinine [Mass/Vol] 0.67 mg/dL Normal 0.40-1.00 [facility] Comment on above: Result Comment: METH OD TRACEABLE TO IDMS STANDARD Performed By: #### C BCA, CMP, FEPR, 87638-6, 3016-3, 2275-4, 2132-07 #### [facility] ([id number]) [address], [address] [place] [address] eGFR (CKD-EPI) NON-RACE DEPENDENT >90 Normal >59 [facility] Comment on above: Result Comment: Reported eGFR is based on the CKD-EPI 2020 equation that does not use a race coefficient. Performed By: #### C BCA, CMP, FEPR, 36731-8, 3016-3, 2276-4, 2132-07 #### [facility] ([id number]) [address], [address] [place] [address] Glucose [Mass/Vol] 96 mg/dL Normal 65-99 [facility] Comment on above: Performed By: #### C BCA, CMP, FEPR, 93445-9, 3016-3, 2276-4, 2132-07 #### [facility] ([id number]) [address], [address] [place] [address] Potassium [Moles/Vol] 4.4 mmol/L Normal 3.5-5.0 [facility] Comment on above: Performed By: #### C BCA, CMP, FEPR, 10316-5, 3016-3, 2275-4, 2132-07 #### [facility] ([id number]) [address], [address] [place] [address] Protein [Mass/Vol] 6.8 g/dL Normal 6.0-8.0 [facility] Comment on above: Performed By: #### C BCA, CMP, FEPR, 13939-3, 6-3, 2275-4, 2132-07 #### [facility] ([id number]) [address], [address] [place] [address] Sodium [Moles/Vol] 140 mmol/L Normal 134-146 [facility] Comment on above: Performed By: #### C BCA, CMP, FEPR, 03761-2, 6-3, 2275-4, 2132-07 #### [facility] ([id number]) [address], [address] [place] [address] Urea nitrogen [Mass/Vol] 15 mg/dL Normal 5-23 [facility] Comment on above: Performed By: #### C BCA, CMP, FEPR, 35027-8, 3016-3, 2275-4, 2132-07 #### [facility] ([id number]) [address], [address] [place] [address] FERRITINon 04-09-2024 Ferritin [Mass/Vol] 7 ng/mL Low 11-307 [facility] Comment on above: Performed By: #### C BCA, CMP, FEPR, 52211-5, 3016-3, 6-4, 2132-07 #### [facility] ([id number]) [address], [address] [place] [address] IRON PROFILEon 04-09-2024 Iron [Mass/Vol] 77 ug/dL Normal 50-170 [facility] Comment on above: Performed By: #### C BCA, CMP, FEPR, 93764-5, 3016-3, 2276-4, 9 #### [facility] ([id number]) [address], [address] [place] [address] IRON BINDING 402 ug/dL Normal 250-425 [facility] Comment on above: Performed By: #### C BCA, CMP, FEPR, 23784-2, 3016-3, 2276-4, 9 #### [facility] ([id number]) [address], [address] [place] [address] IRON SATURATION 19 % SATURATION Normal 15-50 [facility] Comment on above: Performed By: #### C BCA, CMP, FEPR, 20212-9, 3016-3, 2276-4, 9 #### [facility] ([id number]) [address], [address] [place] [address] Lipid 1996 panelon Cholesterol [Mass/Vol] 192 mg/dL Normal 150-200 [facility] Comment on above: Performed By: #### C BCA, CMP, FEPR, 80296-8, 3016-3, 2276-4, 9 #### [facility] ([id number]) [address], [address] [place] [address] Cholesterol in HDL [Mass/Vol] 96 mg/dL Normal >39 [facility] Comment on above: Result Comment: HDL <40 mg/dL - High Risk HDL > or = 40mg/dL- Desirable HDL >60 mg/dL - Negative Risk Performed By: #### C BCA, CMP, FEPR, 48699-7, 3016-3, 6-4, 2132-07 #### [facility] ([id number]) [address], [address] [place] [address] Cholesterol in LDL [Mass/Vol] 89 mg/dL Normal <130 [facility] Comment on above: Result Comment: LDL <100 mg/dL - Desirable LDL >160 mg/dL - High Risk Performed By: #### C BCA, CMP, FEPR, 63248-5, 3016-3, 6-4, 2132-07 #### [facility] ([id number]) [address], [address] [place] [address] Cholesterol in VLDL [Mass/Vol] 7 mg/dL Normal 0-30 [facility] Comment on above: Performed By: #### C BCA, CMP, FEPR, 42125-0, 3016-3, 6-4, 2132-07 #### [facility] ([id number]) [address], [address] [place] [address] CHOLESTEROL:HDL 2.0 Normal 1.0-5.0 [facility] Comment on above: Performed By: #### C BCA, CMP, FEPR, 80234-2, 3016-3, 2276-4, 2132-07 #### [facility] ([id number]) [address], [address] [place] [address] Triglyceride [Mass/Vol] 35 mg/dL Normal 27-150 [facility] Comment on above: Performed By: #### C BCA, CMP, FEPR, 69280-7, 3016-3, 2276-4, 2132-07 #### [facility] ([id number]) [address], [address] [place] [address] TSH Qnon 04-09-2024 TSH 2.86 uIU/mL Normal 0.49-4.67 [facility] Comment on above: Performed By: #### C BCA, CMP, FEPR, 07447-5, 3016-3, 2276-4, 9 #### [facility] ([id number]) [address], [address] [place] [address] VITAMIN B12on 04-09-2024 Cobalamin (Vitamin B12) [Mass/Vol] 208 pg/mL Normal 180-914 [facility] Comment on above: Performed By: #### C BCA, CMP, FEPR, 84801-6, 3016-3, 6-4, 2132-07 #### [facility] ([id number]) [address], [address] [place] [address] IRON AND TOTAL IRON BINDING CAPACITYon 07-04-2023 % SATURATION 22 % (calc) Normal 16-45 [facility] Comment on above: Performed By: #### 7 573 #### [facility] [place] [address] [employer] Researcher: Emmett Fox MD IRON BINDING CAPACITY 334 mcg/dL (calc) Normal 250-450 [facility] Comment on above: Performed By: #### 7 573 #### [facility] [place] [address] [employer] Researcher: Emmett Fox MD IRON, TOTAL 73 mcg/dL Normal 45-160 [facility] Comment on above: Performed By: #### 7 573 #### [facility] [place] [address] [employer] Researcher: Emmett Fox MD Urinalysis - AUTOMATEDon Appearance (U) clear [facility] Other Bilirubin Ql (U) Negative [place] ([facility]) Other Color (U) yellow [facility] Other Glucose Ql (U) Negative [employer] Other Hemoglobin Ql (U) Negative [employer] Other Ketones Ql (U) Negative [employer] Other Leukocyte esterase Test strip Ql (U) trace [facility] Other Nitrite Ql (U) Negative [employer] Other pH (U) 6.0 [pH] [facility] Other Protein Ql (U) Negative [employer] Other Specific gravity (U) [Rel density] 1.010 [facility] Other Urobilinogen (U) [Mass/Vol] 0.2 mg/dL [facility] Other Urinalysis - AUTOMATED [facility] Other CBC AUTO DIFFon 01-28-2022 BASO # 0.1 103/ul Normal 0.0-0.1 [facility] Comment on above: Performed By: #### C BC #### [facility] [address] [place] [address] Dr. Josie Allred Basophils/100 WBC (Bld) 1.5 % Normal 0.2-2.0 [facility] Comment on above: Performed By: #### C BC #### [facility] [address] [place] [address] Dr. Josie Allred EO # 0.2 103/ul Normal 0.0-0.7 [facility] Comment on above: Performed By: #### C BC #### [facility] [address] [place] [address] Dr. Josie Allred Eosinophils/100 WBC (Bld) 3.8 % Normal 0.9-7.0 [facility] Comment on above: Performed By: #### C BC #### [facility] [address] [place] [address] Dr. Josie Allred Erythrocyte distribution width (RBC) [Ratio] 12.8 % Normal 11.0-15.0 [facility] Comment on above: Performed By: #### C BC #### [facility] [address] [place] [address] Dr. Josie Allred Hematocrit (Bld) [Volume fraction] 37.7 % Normal 36.0-48.0 [facility] Comment on above: Performed By: #### C BC #### [facility] [address] [place] [address] Dr. Josie Allred Hemoglobin (Bld) [Mass/Vol] 12.1 g/dL Normal 12.0-16.0 [facility] Comment on above: Performed By: #### C BC #### [facility] [address] [place] [address] Dr. Josie Allred IG # 0.01 10e3/ul Normal 0.00-0.03 [facility] Comment on above: Performed By: #### C BC #### [facility] [address] [place] [address] Dr. Josie Allred IG % 0.3 % Normal 0.0-0.5 [facility] Comment on above: Performed By: #### C BC #### [facility] [address] [place] [address] Dr. Josie Allred LYMPH # 1.3 103/ul Normal 1.2-3.8 [facility] Comment on above: Performed By: #### C BC #### [facility] [address] [place] [address] Dr. Josie Allred Lymphocytes/100 WBC (Bld) 33.4 % Normal 20.5-60.0 [facility] Comment on above: Performed By: #### C BC #### [facility] [address] [place] [address] Dr. Josie Allred MANUAL DIFF REQ NO Normal [facility] Comment on above: Performed By: #### C BC #### [facility] [address] [place] [address] Dr. Josie Allred MCH (RBC) [Entitic mass] 27.5 pg Normal 26.7-34.0 [facility] Comment on above: Performed By: #### C BC #### [facility] [address] [place] [address] Dr. Josie Allred MCHC (RBC) [Mass/Vol] 32.1 g/dL Normal 29.9-35.2 [facility] Comment on above: Performed By: #### C BC #### [facility] [address] [place] [address] Dr. Josie Allred MCV (RBC) [Entitic vol] 85.7 fL Normal 81.0-99.0 [facility] Comment on above: Performed By: #### C BC #### [facility] [address] [place] [address] Dr. Josie Allred MONO # 0.4 103/ul Normal 0.3-0.8 [facility] Comment on above: Performed By: #### C BC #### [facility] [address] [place] [address] Dr. Josie Allred Monocytes/100 WBC (Bld) 10.1 % Normal 1.7-12.0 [facility] Comment on above: Performed By: #### C BC #### [facility] [address] [place] [address] Dr. Josie Allred NEUT # 2.0 103/ul Normal 1.4-6.5 [facility] Comment on above: Performed By: #### C BC #### [facility] [address] [place] [address] Dr. Josie Allred Neutrophils/100 WBC (Bld) 50.9 % Normal 43.0-75.0 [facility] Comment on above: Performed By: #### C BC #### [facility] [address] [place] [address] Dr. Josie Allred Platelet mean volume (Bld) [Entitic vol] 9.3 fL Critically low 9.5-13.5 [facility] Comment on above: Performed By: #### C BC #### [facility] [address] [place] [address] [address] Josie Allred PLT 313 103/ul Normal 150-450 [facility] Comment on above: Performed By: #### C BC #### [facility] [address] [place] [address] Dr. Josie Allred RBC 4.40 106/ul Normal 4.20-5.40 [facility] Comment on above: Performed By: #### C BC #### [facility] [address] [place] [address] Dr. Josie Allred WBC 4.0 103/ul Normal 4.0-11.0 [facility] Comment on above: Performed By: #### C BC #### [facility] [address] [place] [address] Dr. Josie Allred IRONon 01-28-2022 Iron [Mass/Vol] 55.0 ug/dL Normal 37.0-170.0 [facility] Comment on above: Performed By: #### I DENNISE #### [facility] [address] [place] [address] Dr. Josie Allred LIPID PROFILEon 01-28-2022 CHOL-HDL RATIO NORM SEE BELOW Normal [facility] Comment on above: Result Comment: 3.3 - 4.4 LOW RISK 4.4 - 7.1 AVERAGE RISK 7.1 - 11.0 MODERATE RISK >11.0 HIGH RISK Performed By: #### L IPID, CMP #### [facility] [address] [place] [address] Dr. Josie Allred Cholesterol [Mass/Vol] 221 mg/dL Critically high <=200 [facility] Comment on above: Performed By: #### L IPID, CMP #### [facility] [address] [place] [address] Dr. Josie Allred Cholesterol in HDL [Mass/Vol] 114 mg/dL Normal [facility] Comment on above: Performed By: #### L IPID, CMP #### [facility] [address] [place] [address] Dr. Josie Allred Cholesterol in LDL [Mass/Vol] 101.2 mg/dL Normal [facility] Comment on above: Performed By: #### L IPID, CMP #### [facility] [address] [place] [address] [address] Josie Allred Cholesterol.total/C holesterol in HDL [Mass ratio] 1.9 {ratio} Normal [facility] Comment on above: Performed By: #### L IPID, CMP #### [facility] [address] [place] [address] [address] Josie Allred HDL NORMAL > or = 60 mg/dl - LOW CARDIOVASCULAR RISK <40 mg/dl - HIGH CARDIOVASCULAR RISK Normal [facility] Comment on above: Performed By: #### L IPID, CMP #### [facility] [address] [place] [address] [address] Josie Allred LDL CALC NORMAL SEE BELOW Normal [facility] Comment on above: Result Comment: <100 mg/dl OPTIMAL 100 - 129 mg/dl NEAR OR ABOVE OPTIMAL 130 - 159 mg/dl BORDERLINE HIGH 160 - 189 mg/dl HIGH >190 mg/dl VERY HIGH Performed By: #### L IPID, CMP #### [facility] [address] [place] [address] [address] Josie Allred Triglyceride [Mass/Vol] 29 mg/dL Normal <=150 [facility] Comment on above: Performed By: #### L IPID, CMP #### [facility] [address] [place] [address] [address] Josie Allred VLDL CALC 5.8 mg/dL Normal [facility] Comment on above: Performed By: #### L IPID, CMP #### [facility] [address] [place] [address] [address] Josie Allred MG MAMM SCREEN 3D АЛЕКСАНДР CADon 01-28-2022 MG MAMM SCREEN 3D АЛЕКСАНДР CAD Patient: ITALIA NÚÑEZ Exam Date: 01/28/2022 : 1965 Gender:F Ordering : DR CHELSEY DILL Admission #: [id number] Family : Order #: [id number] CLICK HERE TO VIEW EXAM RADIOLOGY REPORT [...] colon cancer at age 79. LOCATION: [facility] BREAST COMPOSITION: Heterogeneously dense,which may obscure [...] Randolph MD on 01/28/2022 at 08:07 Normal [facility] PROF 14(COMP METB)on 022 Albumin [Mass/Vol] 3.9 g/dL Normal 3.5-5.0 [facility] Comment on above: Performed By: #### L IPID, CMP #### [facility] [address] [place] [address] Dr. Josie Allred Albumin/Globulin [Mass ratio] 1.1 {ratio} Normal [facility] Comment on above: Performed By: #### L IPID, CMP #### [facility] [address] [place] [address] [address] Josie Allred ALP [Catalytic activity/Vol] 56 U/L Normal 38-126 [facility] Comment on above: Performed By: #### L IPID, CMP #### [facility] [address] [place] [address] [address] Josie Allred ALT [Catalytic activity/Vol] 25 U/L Normal 9-52 [facility] Comment on above: Performed By: #### L IPID, CMP #### [facility] [address] [place] [address] [address] Josie Allred Anion gap [Moles/Vol] 12.2 mmol/L Normal [facility] Comment on above: Performed By: #### L IPID, CMP #### [facility] [address] [place] [address] [address] Josie Allred AST [Catalytic activity/Vol] 21 U/L Normal 14-36 [facility] Comment on above: Performed By: #### L IPID, CMP #### [facility] [address] [place] [address] Dr. Josie Allred Bilirubin [Mass/Vol] 0.3 mg/dL Normal 0.2-1.3 [facility] Comment on above: Performed By: #### L IPID, CMP #### [facility] [address] [place] [address] Dr. Josie Allred Calcium [Mass/Vol] 8.8 mg/dL Normal 8.4-10.2 [facility] Comment on above: Performed By: #### L IPID, CMP #### [facility] [address] [place] [address] Dr. Josie Allred Chloride [Moles/Vol] 104 mmol/L Normal 98-107 [facility] Comment on above: Performed By: #### L IPID, CMP #### [facility] [address] [place] [address] Dr. Josie Allred CO2 [Moles/Vol] 27.1 mmol/L Normal 22.0-30.0 [facility] Comment on above: Performed By: #### L IPID, CMP #### [facility] [address] [place] [address] Dr. Josie Allred Creatinine [Mass/Vol] 0.81 mg/dL Normal 0.52-1.04 [facility] Comment on above: Performed By: #### L IPID, CMP #### [facility] [address] [place] [address] Dr. Josie Allred EGFR-AF NORWEGIAN >60 Normal >=60 [facility] Comment on above: Performed By: #### L IPID, CMP #### [facility] [address] [place] [address] Dr. Josie Allred EGFR-NON AF NORWEGIAN >60 Normal >=60 [facility] Comment on above: Performed By: #### L IPID, CMP #### [facility] [address] [place] [address] [address] Josie Allred Globulin (S) [Mass/Vol] 3.5 g/dL Normal [facility] Comment on above: Performed By: #### L IPID, CMP #### [facility] [address] [place] [address] Dr. Josie Allred Glucose [Mass/Vol] 100 mg/dL Normal 74-106 [facility] Comment on above: Performed By: #### L IPID, CMP #### [facility] [address] [place] [address] Dr. Josie Allred Potassium [Moles/Vol] 4.3 mmol/L Normal 3.4-5.0 [facility] Comment on above: Performed By: #### L IPID, CMP #### [facility] [address] [place] [address] Dr. Josie Allred Protein [Mass/Vol] 7.4 g/dL Normal 6.1-8.2 [facility] Comment on above: Performed By: #### L IPID, CMP #### [facility] [address] [place] [address] Dr. Josie Allred Sodium [Moles/Vol] 139 mmol/L Normal 137-145 [facility] Comment on above: Performed By: #### L IPID, CMP #### [facility] [address] [place] [address] Dr. Josie Allred Urea nitrogen [Mass/Vol] 17.0 mg/dL Normal 7.0-17.0 [facility] Comment on above: Performed By: #### L IPID, CMP #### [facility] [address] [place] [address] Dr. Josie Allred Urea nitrogen/Creatinine [Mass ratio] 21.0 mg/mg Normal [facility] Comment on above: Performed By: #### L IPID, CMP #### [facility] [address] [place] [address] Dr. Josie Allred POINT OF CARE GLUCOSEon 11-27 Glucose [Mass/Vol] 156 mg/dL Critically high 74-106 T [facility] Comment on above: Performed By: #### P OCGLUC #### [facility] [address] [address] [address] Josie Allred Vital Signs Date Time Vital Sign Value Performing Clinician Facility 07-14-2025 14:36-0400 Body mass index (BMI) [Ratio] 24.49 kg/m2 Marian CARLTON Work Phone: [facility] 07-14-2025 14:36-0400 Body weight 68.83 kg Marian CARLTON Work Phone: [facility] 07-14-2025 14:36-0400 Diastolic blood pressure 70 mm[Hg] Marian CARLTON Work Phone: [facility] 07-14-2025 14:36-0400 Systolic blood pressure 118 mm[Hg] Marian CARLTON Work Phone: [facility] 06-18-2025 17:27-0400 Body height 167.64 cm PHYSICIAN NO [facility] 06-18-2025 17:27-0400 Body mass index (BMI) [Ratio] 24.3 kg/m2 PHYSICIAN NO [facility] 06-18-2025 17:27-0400 Body temperature 97.4 [degF] PHYSICIAN NO [facility] 06-18-2025 17:27-0400 Body weight 68.49 kg PHYSICIAN NO [facility] 06-18-2025 17:27-0400 Diastolic blood pressure 65 mm[Hg] PHYSICIAN NO [facility] 06-18-2025 17:27-0400 Heart rate 72 /min PHYSICIAN NO [facility] 06-18-2025 17:27-0400 Respiratory rate 18 /min PHYSICIAN NO [facility] 06-18-2025 17:27-0400 SaO2% (BldA) [Mass fraction] 98 % PHYSICIAN NO [facility] 06-18-2025 17:27-0400 Systolic blood pressure 108 mm[Hg] PHYSICIAN NO [facility] 04-15-2025 07:31-0400 Body height 167.6 cm Paulette Marcelino APRN-PAMELA Work Phone: [facility] 04-15-2025 07:31-0400 Body mass index (BMI) [Ratio] 24.63 kg/m2 Paulette Marcelino APRN-ASSET RECOVERY SPECIALIST Work Phone: [facility] 04-15-2025 07:31-0400 Body temperature 97.7 [degF] Paulette Marcelino APRN-PAMELA Work Phone: [facility] 04-15-2025 07:31-0400 Body weight 69.22 kg Paulette Marcelino APRN-PAMELA Work Phone: [facility] 04-15-2025 07:31-0400 Diastolic blood pressure 62 mm[Hg] Paulette Marcelino APRN-PAMELA Work Phone: [facility] 04-15-2025 07:31-0400 Heart rate 66 /min Paulette Marcelino APRN-PAMELA Work Phone: [facility] 04-15-2025 07:31-0400 Respiratory rate 16 /min Paulette Marcelino APRN-PAMELA Work Phone: [facility] 04-15-2025 07:31-0400 SaO2% (BldA) [Mass fraction] 99 % Paulette Marcelino APRN-PAMELA Work Phone: [facility] 04-15-2025 07:31-0400 Systolic blood pressure 100 mm[Hg] Paulette Marcelino APRN-ASSET RECOVERY SPECIALIST Work Phone: [facility] 07-25-2024 14:190400 Body height 167.6 cm Marian CARLTON Work Phone: [facility] 07-25-2024 14:19-0400 Body mass index (BMI) [Ratio] 24.23 kg/m2 Marian CARLTON Work Phone: [facility] 07-25-2024 14:19-0400 Body weight 68.09 kg Marian Hugginsvicente CARLTON Work Phone: [facility] 07-25-2024 14:19-0400 Diastolic blood pressure 70 mm[Hg] Marian Dioni CARLTON Work Phone: [facility] 07-25-2024 14:19-0400 Systolic blood pressure 120 mm[Hg] Marian Dioni PA Work Phone: [facility] 04-09-2024 07:35-0400 Body height 167.6 cm Paulette Marcelino APRN-ASSET RECOVERY SPECIALIST Work Phone: [facility] 04-09-2024 07:35-0400 Body mass index (BMI) [Ratio] 25.2 kg/m2 Paulette Marcelino APRN-ASSET RECOVERY SPECIALIST Work Phone: [facility] 04-09-2024 07:35-0400 Body temperature 97.39 [degF] Paulette Marcelino APRN-ASSET RECOVERY SPECIALIST Work Phone: [facility] 04-09-2024 07:35-0400 Body weight 70.81 kg Paulette Marcelino NECK BAND MAKER-ASSET RECOVERY SPECIALIST Work Phone: [facility] 04-09-2024 07:35-0400 Diastolic blood pressure 70 mm[Hg] Paulette Marcelino APRN-ASSET RECOVERY SPECIALIST Work Phone: [facility] 04-09-2024 07:35-0400 Heart rate 65 /min Paulette Marcelino APRN-ASSET RECOVERY SPECIALIST Work Phone: [facility] 04-09-2024 07:35-0400 SaO2% (BldA) [Mass fraction] 97 % Paulette Marcelino [employer]ECK B[employer] MAKER-ASSET RECOVERY SPECIALIST Work Phone: [facility] 04-09-2024 07:35-0400 Systolic blood pressure 110 mm[Hg] Paulette Marcelino NECK BAND MAKER-ASSET RECOVERY SPECIALIST Work Phone: [facility] 09-10-2022 10:55-0400 Body height 167.64 cm Indigo Mckeon Other [facility] Other 09-10-2022 10:55-0400 Body mass index (BMI) [Ratio] 24.37 kg/m2 Indigo Mckeon Other [facility] Other 09-10-2022 10:55-0400 Body temperature 97.5 [degF] Indigo Mckeon Other [facility] Other 09-10-2022 10:55-0400 Body weight 68.49 kg Indigo Mckeon Other [facility] Other 09-10-2022 10:55-0400 Diastolic blood pressure 61 mm[Hg] Indigo Mckeon Other [facility] Other 09-10-2022 10:55-0400 Respiratory rate 18 /min Indigo Mckeon Other [facility] Other 09-10-2022 10:55-0400 SaO2% (BldA) [Mass fraction] 99 % Indigo Mckeon Other [facility] Other 09-10-2022 10:55-0400 Systolic blood pressure 117 mm[Hg] Indigo Mckeon Other [facility] Other Encounters Encounter Date Encounter Type Care Provider Facility Start: 07-14-2025 End: 07-14-2025 Patient encounter procedure Marian CARLTON Work Phone: [facility] Start: 07-14-2025 End: 07-14-2025 Periodic preventive med est patient 40-64yrs Marian CARLTON Work Phone: [facility] Luciano ORTIZ Comment on above: Well woman exam with routine gynecological exam; Encounter for screening mammogram for malignant neoplasm of breast; Postmenopausal state Start: 07-14-2025 End: 07-14-2025 ambulatory MARIAN CINTRON Not Available Start: 07-14-2025 End: 07-14-2025 Bamboo flowsheet Marian CARLTON Work Phone: [facility] Start: 07-14-2025 End: 07-17-2025 Bamboo flowsheet Marian CARLTON Work Phone: [facility] Start: 07-14-2025 End: 07-17-2025 Clinisync Result Encounter Harvey Zimmer DO Work Phone: [facility] Unsolicited Start: 06-18-2025 End: 06-18-2025 Patient encounter procedure Annika Valerio [employer] MAKER [facility] Work Phone: Start: 06-18-2025 End: 06-18-2025 ambulatory PHYSICIAN BRENNAN [facility] Work Phone: Start: 06-18-2025 End: 06-18-2025 Departed Referred Annika Valerio [employer] MAKER [facility] Work Phone: Start: 04-15-2025 End: 04-15-2025 ambulatory [facility] Start: 04-15-2025 End: 04-15-2025 Patient encounter procedure Paulette Marcelino NECK B[employer] MAKER-ASSET RECOVERY SPECIALIST Work Phone: [facility] Start: 04-15-2025 End: 04-15-2025 Periodic preventive med est patient 40-64yrs Paulette Marcelino NECK BAND MAKER-ASSET RECOVERY SPECIALIST Work Phone: [facility] Comment on above: Annual physical exam (Primary Dx); Blood tests for routine general physical examination; Other iron deficiency anemia Start: 04-15-2025 End: 04-15-2025 Physical examination Paulettetran Marcelino [employer]ECK BAND MAKER-ASSET RECOVERY SPECIALIST Work Phone: [facility] Work Phone: Start: 07-25-2024 End: 07-25-2024 Postop follow up visit related to original px Marian CARLTON Work Phone: [facility] Comment on above: Postoperative examin ation Start: 07-25-2024 End: 07-25-2024 ambulatory MARIAN CINTRON Not Available Start: 07-25-2024 End: 07-25-2024 Bamboo flowsheet Marian CARLTON Work Phone: [facility] Start: 07-25-2024 End: 07-25-2024 Bamboo flowsheet Marian CARLTON Work Phone: [facility] Start: 07-12-2024 End: 07-12-2024 ambulatory [facility] Work Phone: Start: 07-12-2024 End: 07-12-2024 Departed Referred DO [facility] Work Phone: [facility] Start: 04-09-2024 End: 04-10-2024 ambulatory [facility] Joanie MARCELINO [facility] Start: 04-09-2024 End: 04-09-2024 Patient encounter procedure Paulette Marcelino APRN-PAMELA Work Phone: [facility] Start: 04-09-2024 End: 04-09-2024 Periodic preventive med est patient 40-64yrs Paulette Marcelino APRN-ASSET RECOVERY SPECIALIST Work Phone: [facility] Comment on above: Annual physical exam (Primary Dx); Blood tests for routine general physical examination; Other iron deficiency anemia Start: 04-09-2024 End: 04-09-2024 Physical examination Paulette Marcelino APRN-ASSET RECOVERY SPECIALIST Work Phone: [facility] Work Phone: Start: 09-10-2022 Office outpatient ne w 20 minutes Indigo Mckeon [facility] Start: 09-10-2022 End: 09-10-2022 ambulatory DO Josef Faulkner Work Phone: [facility] Other Start: 09-10-2022 End: 09-10-2022 Departed Referred DO Josef Portillo Work Phone: [facility] Start: 04-11-2022 End: 04-11-2022 Patient encounter procedure DO Josef Portillo Work Phone: [facility] Start: 02-01-2022 Encounter for genera l adult medical examination without abnormal findings PAULETTE MARCELINO [facility] Start: 01-28-2022 End: 01-29-2022 Encounter for general adult medical examination without abnormal findings PAULETTETRAN MARCELINO Facility:[facility] Start: 01-28-2022 End: 01-29-2022 ambulatory [facility]ULETTE [facility] Facility: Start: 11-09-2017 Encounter for genera l adult medical examination without abnormal findings [facility] Joanie [facility] Start: 11-09-2017 Patient encounter procedure Paulette Marcelino NECK B[employer] MAKER-ASSET RECOVERY SPECIALIST Work Phone: [facility] Start: 11-01-2017 Encounter for genera l adult medical examination without abnormal findings PAULETTE [facility] Start: 11-01-2017 Physical examination Paulette regan APRN-ASSET RECOVERY SPECIALIST Work Phone: [facility] Procedures Date Procedure Procedure Detail Performing Clinician Start: 07-14-2025 IGP,APTIMA HPV,AGE GDLN Harvey Mesha DO Work Phone: Start: 04-15-2025 Adult depression scr eening assessment Paulette Marcelino NECK B[employer] MAKER-ASSET RECOVERY SPECIALIST Work Phone: Start: 07-01-2024 Microscopic observat ion [Identifier] in Cervix by Cyto stain Paulette Marcelino APRN-ASSET RECOVERY SPECIALIST Work Phone: Start: 05-29-2024 Mammography Marian CARLTON Work Phone: Start: 04-09-2024 Adult depression scr eening assessment Paulette Marcelino [employer]ECK B[employer] MAKER-ASSET RECOVERY SPECIALIST Work Phone: Start: 02-17-2023 Mammography Paulette joy NECK BAND MAKER-ASSET RECOVERY SPECIALIST Work Phone: Start: 04-11-2022 Plain X-ray of left elbow DO [employer] Work Phone: Start: 04-11-2022 Plain X-ray of left forearm DO [employer] Work Phone: Start: 02-25-2016 Colonoscopy Paulette joy [employer]ECK BAND MAKER-ASSET RECOVERY SPECIALIST Work Phone: Plan of Treatment Date Care Activity Detail Author Start: 07-01-2027 Screening for malign ant neoplasm of cervix Pap Smear [facility] Start: 07-16-2026 End: 07-16-2026 Patient encounter procedure 07/16/2026 9:00 AM EDT Procedure Visit JACQUELIN ORTIZ [address] [place] [phone] Marian Cintron PA [address] [place] [address] JACQUELIN ORTIZ Start: 04-21-2026 End: 04-21-2026 Patient encounter procedure 04/21/2026 7:00 AM EDT Office Visit [facility] [address] [place] [phone] Paulette Marcelino, NECK BAND MAKER-ASSET RECOVERY SPECIALIST [address] [place] [address] [facility] Start: 04-15-2026 Adult BMI Screening Adult BMI Screen ing [facility] Start: 04-15-2026 Depression Screening Depression Scre ening [facility] Start: 04-15-2026 Tobacco Screening Tobacco Screening [facility] Start: 02-24-2026 Screening for malign ant neoplasm of colon Colonoscopy [facility] Start: 07-28-2025 Influenza vaccination [facility] Start: 07-14-2025 End: 07-14-2025 Patient encounter procedure 07/14/2025 2:30 PM EDT Office Visit [facility] [address] [place] [phone] Marian Cintron PA [address] [place] [address] [facility] Comment on above: Arrived Start: 07-14-2025 End: 07-14-2026 DXA Skeletal system Views for bone density DEXA bone density Imaging Routine Postmenopausal state Expected: 07/14/2025 (Approximate), Expires: 07/14/2026 [facility] Comment on above: Expected: 07/14/2025 (Approximate), Expires: 07/14/2026 Start: 07-14-2025 End: 09-13-2026 MG Breast - bilateral Screening Bilateral screening mammogram Imaging Routine Encounter for screening mammogram for malignant neoplasm of breast Expected: 07/14/2025, Expires: 09/13/2026 [facility] Work Phone: Comment on above: Expected: 07/14/2025 , Expires: 09/13/2026 Start: 07-08-2025 End: 07-08-2025 Patient encounter procedure 07/08/2025 9:00 AM EDT Office Visit [facility] [address] [place] [phone] Marian Cintron PA [address] [place] [address] [facility] Start: 06-18-2025 Urine culture [facility] Start: 06-18-2025 Bacteria identified in Urine by Culture Urine Culture [facility] Start: 05-29-2025 Screening for malign ant neoplasm of breast Mammogram [facility] Start: 04-15-2025 End: 04-15-2025 Patient encounter procedure 04/15/2025 7:20 AM EDT Office Visit [facility] [address] [place] [address] Paulette Marcelino, NECK BAND MAKER-ASSET RECOVERY SPECIALIST [address] [place] [address] [facility] Start: 04-09-2025 Adult BMI Follow Up Plan Adult BMI F ollow Up Plan [facility] Start: 04-09-2025 Adult BMI Screening Adult BMI Screen ing [facility] Start: 04-09-2025 Depression Screening Depression Scre ening [facility] Start: 04-09-2025 Tobacco Screening Tobacco Screening [facility] Start: 07-28-2024 Influenza vaccination [facility] Start: 07-25-2024 End: 07-25-2024 Patient encounter procedure 07/25/2024 2:20 PM EDT Office Visit [facility] [address] [place] [phone] Marian Cintron PA [address] [place], [place] [id number] Arrived [facility] Comment on above: Arrived Start: 02-18-2024 Screening for malign ant neoplasm of breast Mammogram [facility] Start: 2015 Administration of varicella zoster vaccine Zoster (Shingles) Vaccine (1 of 2) [facility] Start: 1986 Screening for malign ant neoplasm of cervix Pap Smear [facility] Start: 1984 DTaP,Tdap and Td Vaccines (1 - Tdap) DTaP,Tdap and Td Vaccines (1 - Tdap) [facility] Start: 1965 Screening for malign ant neoplasm of colon [facility] Bacteria identified in Urine by Culture [facility] End: 04-09-2025 CBC W Auto Differential panel - Blood CBC auto differential Lab Routine Blood tests for routine general physical examination 1 Occurrences starting 04/09/2024 until 04/09/2025 [facility] Comment on above: 1 Occurrences starti ng 04/09/2024 until 04/09/2025 End: 04-15-2026 CBC W Auto Differential panel - Blood CBC auto differential Lab Routine Blood tests for routine general physical examination 1 Occurrences starting 04/15/2025 until 04/15/2026 [facility] Comment on above: 1 Occurrences starti ng 04/15/2025 until 04/15/2026 End: 04-09-2025 Comprehensive metabolic 2000 panel - Serum or Plasma Comprehensive metabolic panel Lab Routine Blood tests for routine general physical examination 1 Occurrences starting 04/09/2024 until 04/09/2025 [employer] Work Phone: Comment on above: 1 Occurrences starti ng 04/09/2024 until 04/09/2025 End: 04-15-2026 Comprehensive metabolic 2000 panel - Serum or Plasma Comprehensive metabolic panel Lab Routine Blood tests for routine general physical examination 1 Occurrences starting 04/15/2025 until 04/15/2026 [employer] Work Phone: Comment on above: 1 Occurrences starti ng 04/15/2025 until 04/15/2026 End: 04-09-2025 Cyanocobalamin vitamin b-12 Vitamin B12 Lab Routine Other iron deficiency anemia 1 Occurrences starting 04/09/2024 until 04/09/2025 [facility] Comment on above: 1 Occurrences starti ng 04/09/2024 until 04/09/2025 End: 04-15-2026 Cyanocobalamin vitamin b-12 Vitamin B12 Lab Routine Other iron deficiency anemia 1 Occurrences starting 04/15/2025 until 04/15/2026 [facility] Comment on above: 1 Occurrences starti ng 04/15/2025 until 04/15/2026 End: 04-09-2025 Ferritin [Mass/volume] in Serum or Plasma Ferritin Lab Routine Other iron deficiency anemia 1 Occurrences starting 04/09/2024 until 04/09/2025 [facility] Comment on above: 1 Occurrences starti ng 04/09/2024 until 04/09/2025 End: 04-15-2026 Ferritin [Mass/volume] in Serum or Plasma Ferritin Lab Routine Other iron deficiency anemia 1 Occurrences starting 04/15/2025 until 04/15/2026 [facility] Comment on above: 1 Occurrences starti ng 04/15/2025 until 04/15/2026 End: 04-15-2026 Hemoglobin A1c/Hemoglobin.total in Blood Hemoglobin A1c Lab Routine Blood tests for routine general physical examination 1 Occurrences starting 04/15/2025 until 04/15/2026 [facility] Comment on above: 1 Occurrences starti ng 04/15/2025 until 04/15/2026 End: 04-09-2025 Iron and TIBC Iron and TIBC Lab Routine Other iron deficiency anemia 1 Occurrences starting 04/09/2024 until 04/09/2025 [facility] Comment on above: 1 Occurrences starti ng 04/09/2024 until 04/09/2025 End: 04-15-2026 Iron and TIBC Iron and TIBC Lab Routine Other iron deficiency anemia 1 Occurrences starting 04/15/2025 until 04/15/2026 [facility] Comment on above: 1 Occurrences starti ng 04/15/2025 until 04/15/2026 End: 04-09-2025 Lipid 1996 panel - Serum or Plasma Lipid profile Lab Routine Blood tests for routine general physical examination 1 Occurrences starting 04/09/2024 until 04/09/2025 [facility] Comment on above: 1 Occurrences starti ng 04/09/2024 until 04/09/2025 End: 04-15-2026 Lipid 1996 panel - Serum or Plasma Lipid profile Lab Routine Blood tests for routine general physical examination 1 Occurrences starting 04/15/2025 until 04/15/2026 [facility] Comment on above: 1 Occurrences starti ng 04/15/2025 until 04/15/2026 THIN PREP TIS PAP AN D HR HPV DNA THIN PREP TIS PAP AND HR HPV DNA Pathology and Cytology Routine Well woman exam with routine gynecological exam Ordered: 07/14/2025 [facility] Comment on above: Ordered: 07/14/2025 End: 04-09-2025 Thyrotropin [Units/volume] in Serum or Plasma TSH Lab Routine Blood tests for routine general physical examination 1 Occurrences starting 04/09/2024 until 04/09/2025 [facility] Comment on above: 1 Occurrences starti ng 04/09/2024 until 04/09/2025 Payers Date Payer Category Payer [facility] [employer] [id number] 2025 Unknown [id number] 2024 Self-pay [id number] 2022 Private Health Insurance [employer] [id number] 2016 Unknown [id number] 1965 Unknown [id number] 1965 Unknown [id number] 1965 Unknown [id number] 1965 Unknown [id number] 1965 Unknown [id number] [id number] 1965 Unknown [id number] [id number] 1959 Unknown [id number] Unknown O [id number] Unknown [id number] Unknown [id number] Social History Date Type Detail Facility [facility] Work Phone: Start: 1965 Sex Assigned At Female F [facility] Start: 01-07-2021 End: 04-09-2024 Sex Assigned At [facility] consumption unknown [facility] Start: 1965 Sex assigned at Not on file P [facility] Start: 05-03-2023 End: 04-15-2025 Tobacco smoking status NHIS Ex-smoker [facility] End: 11-27-2007 History of tobacco use Current smoker [facility] End: 11-27-2007 History of tobacco use Cigarette Smoker [facility] Start: 05-03-2023 End: 04-15-2025 Tobacco use and exposure Smokeless tobacco non-user [facility] Start: 04-09-2024 End: 04-15-2025 Alcoholic beverage intake Current drinker of alcohol (finding) [facility] Start: 01-07-2021 End: 04-09-2024 History of Social function [facility] Adolescent depressio n screening assessment 0 [facility] Start: 08-08-2017 Alcohol Comment socailly [facility] Start: 07-02-2015 Sex Female (finding) [facility] Start: 06-18-2025 [facility] Clinical Notes 09-10-2022 to 07-14-2025 BRANDT Lemos [...] nursing note reviewed. Exam conducted with a recruitment and outreach assistant present. Vitals: Estimated body mass index is 24.49 kg/m as calculated from the following: Height as of 07/25/24: 5' 6 . Weight as of this [...] of: BRANDT Lemos documented in this encounter [facility] 06-18-2025 Evaluation note Diagnosis Onset Date Resolution Flank pain acute June 18 5:21pm Dysuria noneactive June 18 5:21pm [facility] Work Phone: 1(966) 298-709105-20-2025 History of Present illness Narrative* Paulette Marcelino APRN-PAMELA - 04/15/2025 7:20 AM EDT Images from the original note were not included. [address] [place] [address] SUBJECTIVE: Patient ID: Italia Núñez is [...] 04/13/2022 Performed by Enmanuel Marte DO at [facility] COLON SURGERY RESECTION HYSTERECTOMY PARTIAL Past Medical [...] 0 Mammogram is ordered by Dr. Zimmer, HEAD BANDER AND LINER OPERATOR. She sees her HEAD BANDER AND LINER OPERATOR provider once yearly. ALL QUESTIONS ANSWERED Total time spent was 30 minutes: Preparing to see the patient (e.g., review of tests) Obtaining and/or reviewing separately obtained history Performing a medically appropriate examination and/or evaluation Counseling and educating the patient/family/caregiver Ordering medications, tests, or procedures Follow-up: One year Annual physical RAMA Fish 04/15/25 0807 [facility] History of Present illness Narrative* BRANDT Lemos [...] behalf of: BRANDT Lemos documented [facility] [id number] History of Present illness Narrative* Paulette Marcelino, YUE-ASSET RECOVERY SPECIALIST - 04/09/2024 7:30 AM EDT Images from the original note were not included[place] [address] SUBJECTIVE: Patient ID: Italia Núñez is a [...] 04/13/2022 Performed by Enmanuel Marte DO at [facility] COLON SURGERY RESECTION HYSTERECTOMY PARTIAL Past Medical [...] completed by our records [address] Baxter, [facility]. Recommended 5 year follow up per documents. Family history of colon cancer, mother, who from colon cancer. Our office will inquire for additional records. Patient is aware she is currently due. Mammogram is ordered by her HEAD BANDER AND LINER OPERATOR provider. DEXA screen completed 2022. Encourage daily [...] RAMA Fish 04/09/24 0846 [facility] Evaluation note* Encounter Date Diagnosis Assessment Notes [...] understanding and is agreeable to treatment plan [facility] Other Evaluation noteNo assessment information available [facility] Work Phone: Evaluation note* Diagnosis Postoperative examination Follow-up examination, following unspecified surgery documented in this encounter [facility] HealthcareEvaluation [facility]* Diagnosis Annual physical exam- Primary Routine general medical examination at a health care facility Blood tests for routine general physical examination Laboratory examination ordered as part of a routine general medical examination Other iron deficiency anemia documented in this encounter [facility]* Diagnosis Annual physical exam- Primary Routine general medical examination at a health care facility Blood tests for routine general physical examination Laboratory examination ordered as part of a routine general medical examination Other iron deficiency anemia documented in this encounter [facility]* Diagnosis Well woman exam with routine gynecological exam Routine gynecological examination Encounter for screening mammogram for malignant neoplasm of breast Postmenopausal state Asymptomatic postmenopausal status (age-related) (natural) [facility]* Attachments The following attachments cannot be sent through Care Everywhere. * Yearly Physical for Adults ([place]) [facility]* Attachments The following attachments cannot be sent through Care Everywhere. * Walking for health ([place]) * Routine physical for adults ([place]) documented [facility] for referral (narrative)No reason for referral information availableKettering Health [facility] Work Phone: Summary Purpose Family History Relationship [...] AUTHOR AUTHOR'S ORGANIZ ATION 04/11/2024 [facility] DATE CREATED AUTHOR AUTHOR'S ORGANIZ ATION 04/27/2025 [facility] DATE CREATED AUTHOR AUTHOR'S ORGANIZ ATION 06/20/2025 [facility] DATE CREATED AUTHOR AUTHOR'S ORGANIZ ATION 07/15/2025 [facility] Special[facility] EPIC Care Teams (unrecognized sec [...] Team Status: Inactive Member Role Status Dates Hravey Zimmer DO Attending Provider Active Start : July 12, 2024 End: July 12, 2024 Virtual Classroom Manager Relationship Specialty Start Date End Date Cristy Ricardo MD [address] [place] [address] PCP - General Family Medicine 05/28/24 Virtual Classroom Manager Relationship Specialty Start Date End Date Cristy Ricardo MD [address] [place] [address] PCP - General Family Medicine 05/28/24 Virtual Classroom Manager Relationship Specialty Start Date End Date MarcelinoPaulette thomas APRN-[facility] [address] [place] [address] PCP - General Family Medicine 11/13/17 Virtual Classroom Manager Relationship Specialty Start Date End Date Ryland Paulette Nair NECK BAND MAKER-ASSET RECOVERY SPECIALIST [address] [place] [id number] PCP - General Family Medicine 11/13/17 Team [...] June 18, 2025 End: June 18, 2025 Virtual Classroom Manager Relationship Specialty Start Date End Date Cristy Ricardo MD [address] [place] [address] PCP - General Family Medicine 05/28/24 Virtual Classroom Manager Relationship Specialty Start Date End Date Cristy Ricardo MD [address] [place] [address] PCP - General Family Medicine 05/28/24 Goals [...] BE BASED ON THE PRIMARY CLINICAL RECORDS. [facility]. provides no warranty or guarantee of the accuracy or completeness of information in this document.
--- NOTE | 2025-08-08 07:30 | MM_ITS ---
Patient Name: LUCILA NÚÑEZ MR#: [id number] : 1965 Exam Date: 08/08/2025 Ordering Doctor: DR MARYAN RUBIO . RADIOLOGY REPORT PROCEDURE: MM TOMOSYNTHESIS SCREENING BI COMPARISON: MM TOMOSYNTHESIS SCREENING BI, 05/29/2024. MM TOMOSYNTHESIS SCREENING BI, 02/17/2023. MG MAMM SCREEN 3D АЛЕКСАНДР CAD, 01/28/2022. MG MAMM SCREEN АЛЕКСАНДР W CAD, 12/02/2020. INDICATIONS: Screening Calculator Name NCI Breast Cancer Risk Assessment Tool 5 Year Breast Cancer Risk 1.50% Lifetime Breast Cancer Risk 7.70% Personal Breast Cancer No Personal Ovarian Cancer No Treatments Bowel resection Family Cancers Father with mult.myeloma cancer at age 68; Mother with colon cancer at age 79. LOCATION: [facility] BREAST COMPOSITION: The breasts are heterogeneously dense, which may obscure small masses. FINDINGS: RIGHT BREAST: No significant suspicious finding. Biopsy marking clip. LEFT BREAST: No significant suspicious finding. DIAGNOSTIC CATEGORY 1--NEGATIVE. RECOMMENDATIONS: ROUTINE MAMMOGRAM AND CLINICAL EVALUATION IN 12 MONTHS. Dictated by: Atilio Christy DO on 08/08/2025 at 11:52 Approved by: Atilio Christy DO on 08/08/2025 at 11:56
== END 2025-08-08 07:20 | disposition home or self-care (01) ==
LOC: MAMMO 07:22
PROVIDERS: Visit Provider Obstetrics & Gynecology
DX: Z78.0 Asymptomatic menopausal state (principal); Z12.31 Encounter for screening mammogram for malignant neoplasm of breast; Z80.0 Family history of malignant neoplasm of digestive organs; Z80.7 Family history of other malignant neoplasms of lymphoid, hematopoietic and related tissues
CPT/HCPCS: 77063; 77067; 77080